=== PATIENT | male | born 1940 | race Caucasian/White ===

== ENCOUNTER 2018-01-02 18:50 | Inpatient (IN) | payer MEDICARE ==
[2018-01-02] MEDS ORDERED: SODIUM CHLORIDE 0.9% 1,000 ML IV STA (19:33)
[2018-01-02] MEDS ORDERED: hydrALAZINE HCL 20 MG/ML 1 ML VIAL IVP STA (19:34)
[2018-01-02 19:55] LABS: Basophils % (A) 0 %; Eosinophils # (A) 0.2 k/uL (0-0.7); Eosinophils % (A) 2 %; HCT 51.1 % (39.0-53.0); HGB 17.5 gm/dL (13.0-17.5); Lymphocytes # (A) 1.8 k/uL (1.0-4.8); Lymphocytes % (A) 18 %; MCH 30.6 pg (25.0-35.0); MCHC 34.2 g/dL (31.0-37.0); MCV 89.5 fL (80.0-100.0); Mean Platelet Volume 6.9; Monocytes # (A) 0.5 k/uL (0-1.0); Monocytes % (A) 6 %; Neutrophils # (A) 7.1 k/uL (1.3-7.7); Neutrophils % (A) 72 %; Platelet Count 207 k/uL (150-450); RBC 5.71 m/uL (4.30-5.90); WBC 9.7 k/uL (3.8-10.6)
[2018-01-02 20:06] LABS: INR 1.1 (<1.2); Partial Thromboplastin Time 25.3 sec (22.0-30.0); Prothrombin Time 10.5 sec (9.0-12.0)
[2018-01-02 20:14] LABS: Calcium 9.7 mg/dL (8.4-10.2); Creatine Kinase 242 U/L (55-170); Magnesium 1.4 mg/dL (1.6-2.3); Potassium 4.3 mmol/L (3.5-5.1); Total Bilirubin 0.5 mg/dL (0.2-1.3); Total Protein 6.6 g/dL (6.3-8.2)
--- NOTE | 2018-01-02 20:22 | XR ---
EXAMINATION TYPE: XR chest 2V DATE OF EXAM: 01/02/2018 COMPARISON: NONE HISTORY: Chest pain TECHNIQUE: Frontal and lateral views of the chest are obtained. FINDINGS: There is relative poor inspiration. There is linear density at the lung bases. There is no heart failure. Heart is normal. There are no hilar masses. IMPRESSION: Subsegmental atelectasis at the lung bases. Normal heart.
[2018-01-02 20:26] LABS: Troponin I <0.012 ng/mL (0.000-0.034)
[2018-01-02 20:28] LABS: Creatine Kinase MB 4.4 ng/mL (0.0-2.4)
[2018-01-02] MEDS ORDERED: MORPHINE SULFATE 2 MG/ML SYRINGE IVP PRN (20:48)
--- NOTE | 2018-01-02 20:48 | ED ---
General Adult HPI - General Chief complaint: Recheck/Abnormal Lab/Rx Stated complaint: High blood pressure Time Seen by Provider: 01/02/18 19:13 Source: patient Mode of arrival: ambulatory Limitations: no limitations - History of Present Illness Initial comments: 77 years old male has a history of firm hypertension today blood pressure was almost 200 systolic he had his lisinopril dose doubled but he feels it is not effective and arrival he had no headaches no blurred vision no confusion no chest pain or shortness of breath no abdominal pain no frequency urgency dysuria. But about are later in the ER he said he is feeling some chest pain no pleuritic chest pain no symptoms of TIA or CVA - Related Data Home Medications Medication Instructions Recorded Confirmed Aspirin EC [Ecotrin Low Dose] 81 mg PO DAILY 01/02/18 01/02/18 Ibuprofen [Motrin] 800 mg PO BID 01/02/18 01/02/18 Lisinopril [Zestril] 20 mg PO DAILY 01/02/18 01/02/18 Lisinopril [Zestril] 20 mg PO ONCE PRN 01/02/18 01/02/18 Multivit-Min/FA/Lycopen/Lutein 1 tab PO DAILY 01/02/18 01/02/18 [Centrum Silver Tablet] Simvastatin [Zocor] 10 mg PO DAILY 01/02/18 01/02/18 Testosterone Cypionate 200 mg IM Q14D 01/02/18 01/02/18 [Depo-Testosterone] glipiZIDE XL [Glucotrol Xl] 5 mg PO DAILY 01/02/18 01/02/18 metFORMIN HCL [Glucophage] 500 mg PO BID 01/02/18 01/02/18 Allergies Allergy/AdvReac Type Severity Reaction Status Date / Time No Known Allergies Allergy Verified 01/02/18 19:13 Review of Systems ROS Statement: Those systems with pertinent positive or pertinent negative responses have been documented in the HPI. ROS Other: All systems not noted in ROS Statement are negative. Past Medical History Past Medical History: Diabetes Mellitus, Hyperlipidemia, Hypertension History of Any Multi-Drug Resistant Organisms: None Reported Additional Past Surgical History / Comment(s): back surgery, cataract Past Psychological History: No Psychological Hx Reported Smoking Status: Never smoker Past Alcohol Use History: None Reported Past Drug Use History: None Reported General Exam - General Exam Comments Initial Comments: General: The patient is awake and alert, in no distress, and does not appear acutely ill. Skin: Skin is warm and dry and no rashes or lesions are noted. Eye: Pupils are equal, round and reactive to light, extra-ocular movements are intact; there is normal conjunctiva bilaterally. Ears, nose, mouth and throat: There are moist mucous membranes and no oral lesions. Neck: The neck is supple, there is no tenderness or JVD. Cardiovascular: There is a regular rate and rhythm. No murmur, rub or gallop is appreciated. Respiratory: To auscultation bilateral, no wheezing no rhonchi no distress respiratory luna noticed Gastrointestinal: Soft, non-distended, non-tender abdomen without masses or organomegaly noted. There is no rebound or guarding present. Bowel sounds are unremarkable. Back: There is no tenderness to palpation in the midline. There is no obvious deformity. Musculoskeletal: Normal ROM, no tenderness, There is no pedal edema. There is no calf tenderness or swelling. No cords were appreciated. Neurological: CN II-XII intact, Cranial nerves III through XII are intact. There are no obvious motor or sensory deficits. Coordination appears grossly intact. Speech is normal. Psychiatric: Cooperative, appropriate mood & affect, normal judgment. Limitations: no limitations Course Vital Signs 01/02/18 01/02/18 19:02 19:59 Temperature 98.3 F Pulse Rate 94 78 Respiratory 18 18 Rate Blood Pressure 194/99 179/93 O2 Sat by Pulse 96 96 Oximetry Reassessment was done at term 2024, troponin is unremarkable EKG didn't show any STEMI CBC, CMP, chest x-ray was unremarkable patient be admitted to Dr. Kelly and cardiology consult and consulted considering his chest pain episode Dr. Kelly agreed with that patient agreed with EKG Findings - EKG Comments: EKG Findings:: EKG is normal sinus ventricular rate is 79 DC interval is 144 QRS duration is 90 QT/QTc is 372/426 review of this EKG reveals slight T-wave inversion in lead [address] elevation or ST depression noticed in the other leads Medical Decision Making - Lab Data Result diagrams: 01/02/18 19:40 01/02/18 19:40 Lab Results 01/02/18 01/02/18 01/02/18 Range/Units 19:40 19:40 19:40 WBC 9.7 (3.8-10.6) k/uL RBC 5.71 (4.30-5.90) m/uL Hgb 17.5 (13.0-17.5) gm/dL Hct 51.1 (39.0-53.0) % MCV 89.5 (80.0-100.0) fL MCH 30.6 (25.0-35.0) pg MCHC 34.2 (31.0-37.0) g/dL RDW 14.0 (11.5-15.5) % Plt Count 207 (150-450) k/uL Neutrophils % 72 % Lymphocytes % 18 % Monocytes % 6 % Eosinophils % 2 % Basophils % 0 % Neutrophils # 7.1 (1.3-7.7) k/uL Lymphocytes # 1.8 (1.0-4.8) k/uL Monocytes # 0.5 (0-1.0) k/uL Eosinophils # 0.2 (0-0.7) k/uL Basophils # 0.0 (0-0.2) k/uL PT (9.0-12.0) sec INR (<1.2) APTT (22.0-30.0) sec Sodium 139 (137-145) mmol/L Potassium 4.3 (3.5-5.1) mmol/L Chloride 107 (98-107) mmol/L Carbon Dioxide 20 L (22-30) mmol/L Anion Gap 12 mmol/L BUN 22 H (9-20) mg/dL Creatinine 1.20 (0.66-1.25) mg/dL Est GFR (CKD-EPI)AfAm 67 (>60 ml/min/1.73 sqM) Est GFR (CKD-EPI)NonAf 58 (>60 ml/min/1.73 sqM) Glucose 141 H (74-99) mg/dL Calcium 9.7 (8.4-10.2) mg/dL Magnesium 1.4 L (1.6-2.3) mg/dL Total Bilirubin 0.5 (0.2-1.3) mg/dL AST 27 (17-59) U/L ALT 39 (21-72) U/L Alkaline Phosphatase 60 (38-126) U/L Total Creatine Kinase 242 H (55-170) U/L CK-MB (CK-2) 4.4 H* (0.0-2.4) ng/mL CK-MB (CK-2) Rel Index 1.8 Troponin I <0.012 (0.000-0.034) ng/mL Total Protein 6.6 (6.3-8.2) g/dL Albumin 4.0 (3.5-5.0) g/dL 01/02/18 Range/Units 19:40 WBC (3.8-10.6) k/uL RBC (4.30-5.90) m/uL Hgb (13.0-17.5) gm/dL Hct (39.0-53.0) % MCV (80.0-100.0) fL MCH (25.0-35.0) pg MCHC (31.0-37.0) g/dL RDW (11.5-15.5) % Plt Count (150-450) k/uL Neutrophils % % Lymphocytes % % Monocytes % % Eosinophils % % Basophils % % Neutrophils # (1.3-7.7) k/uL Lymphocytes # (1.0-4.8) k/uL Monocytes # (0-1.0) k/uL Eosinophils # (0-0.7) k/uL Basophils # (0-0.2) k/uL PT 10.5 (9.0-12.0) sec INR 1.1 (<1.2) APTT 25.3 (22.0-30.0) sec Sodium (137-145) mmol/L Potassium (3.5-5.1) mmol/L Chloride (98-107) mmol/L Carbon Dioxide (22-30) mmol/L Anion Gap mmol/L BUN (9-20) mg/dL Creatinine (0.66-1.25) mg/dL Est GFR (CKD-EPI)AfAm (>60 ml/min/1.73 sqM) Est GFR (CKD-EPI)NonAf (>60 ml/min/1.73 sqM) Glucose (74-99) mg/dL Calcium (8.4-10.2) mg/dL Magnesium (1.6-2.3) mg/dL Total Bilirubin (0.2-1.3) mg/dL AST (17-59) U/L ALT (21-72) U/L Alkaline Phosphatase (38-126) U/L Total Creatine Kinase (55-170) U/L CK-MB (CK-2) (0.0-2.4) ng/mL CK-MB (CK-2) Rel Index Troponin I (0.000-0.034) ng/mL Total Protein (6.3-8.2) g/dL Albumin (3.5-5.0) g/dL Disposition Clinical Impression: Hypertension, Chest pain Disposition: ADMITTED IP TO THIS HOSP Condition: Good Referrals: Rama Putnam MD [Primary Care Provider] - 1-2 days
[2018-01-02] MEDS ORDERED: NITROGLYCERIN OINT 1 INCH/GM PACKET TOPICAL STA (20:51)
[2018-01-02] MEDS ORDERED: amLODIPine 5 MG TAB PO STA (20:52)
[2018-01-02] MEDS ORDERED: LISINOPRIL 20 MG TAB PO PRN (20:53)
[2018-01-02 21:13] LABS: Glucose,Whole Blood 117 mg/dL (75-99)
[2018-01-02] MEDS: metFORMIN 500 MG TAB PO SCH (22:17)
[2018-01-03] MEDS: NITROGLYCERIN OINT 1 INCH/GM PACKET TOPICAL SCH ×2 (00:07→06:26)
[2018-01-03 03:13] LABS: Cholesterol 182 mg/dL (<200); HDL Cholesterol 36 mg/dL (40-60); LDL Cholesterol,Calculated 108 mg/dL (0-99); Triglycerides 190 mg/dL (<150)
[2018-01-03 04:06] LABS: Creatine Kinase MB 3.4 ng/mL (0.0-2.4)
[2018-01-03 04:08] LABS: Troponin I 0.09 ng/mL (0.000-0.034)
[2018-01-03 05:54] LABS: Glucose,Whole Blood 113 mg/dL (75-99)
[2018-01-03] MEDS ORDERED: Magnesium Replacement Protocol 1 EACH MISC MISCELLANE PRN (06:57)
[2018-01-03] MEDS: MAGNESIUM SULFATE-D5W PMX 1 GM in DEXTROSE/WATER 1 100ML.BAG IVPB SCH ×3 (07:52→10:54)
[2018-01-03 08:01] LABS: Creatine Kinase MB 3.2 ng/mL (0.0-2.4); Troponin I 0.121 ng/mL (0.000-0.034)
[2018-01-03] MEDS ORDERED: ASPIRIN 325 MG TAB PO SCH (09:00)
[2018-01-03] MEDS ORDERED: NON-FORMULARY DRUG (Aspirin Ec 81 MG) PO SCH (09:00)
[2018-01-03 09:13] VITALS: BMI 28.8
[2018-01-03] MEDS: metFORMIN 500 MG TAB PO SCH ×2 (10:12→20:27)
[2018-01-03] MEDS: ATORVASTATIN 10 MG TAB PO SCH (10:12)
--- NOTE | 2018-01-03 10:57 | P.CRDCN ---
History of Present Illness History of present illness: This is Dr. Clemons dictating a consult on this patient The patient was interviewed and examined by me IMPRESSION / ASSESSMENT: Admitted with significantly elevated blood pressures Recently treated with Motrin in high doses for back pain by physical therapy History of diabetes History of hypertension 2 dyslipidemia On aspirin and Zestril and Zocor at home PLAN: Avoid NSAIDs Restart lisinopril 2-D echo and Doppler study Ambulate in the hallways Follow Dr. Richard as an outpatient I would monitor him for an additional 24 hours HPI Patient presented with elevated blood pressure almost 200 mmHg systolic. Recently lisinopril dose was doubled but that did not help his blood pressure come down. Denied any chest discomfort no headaches no blurring of vision no confusion no shortness of breath ROS: Patient noted his blood pressure is elevated and went to see his primary care physician Dr. Putnam. Blood pressure was elevated at the physical therapist's office. Recently given Motrin in high doses No fever chills or rigors, no cough, phlegm or expectoration, no nausea, vomiting or diarrhea, no hematuria, dysuria, no musculoskeletal complaints, no strokes or seizures, no skin lesions. EXAMINATION Afebrile 97.3F, blood pressure 130/78 mmHg, respirations normal, pulse rate in the 80s Breath sounds are clear no rhonchi no crackles Heart sounds S1 and S2 are normal no murmurs or gallops. Extremity is warm no edema REVIEW OF LABS, ECG Twelve-lead ECG shows sinus rhythm normal MN incomplete right bundle branch block pattern, [address] depression lateral precordial leads and left axis deviation Hemoglobin 17.5, normal electrolytes, BUN 22 creatinine 1.2 Abnormal troponins of 0.012, 0.09 and 0.12 However CPKs were elevated at 242 with an MB of 4.4 with a first normal troponin. The elevation in CPKs occurred before elevation in troponins LDL 108, HDL 36, total cholesterol 182, triglycerides 190 Past Medical History Past Medical History: Diabetes Mellitus, GERD/Reflux, Hyperlipidemia, Hypertension, Osteoarthritis (OA) Additional Past Medical History / Comment(s): "past ulcer long time ago", kidney stone, gallstone History of Any Multi-Drug Resistant Organisms: None Reported Past Surgical History: Back Surgery Additional Past Surgical History / Comment(s): back surgery, cataract Past Anesthesia/Blood Transfusion Reactions: No Reported Reaction Smoking Status: Never smoker - Past Family History Mother Family Medical History: CVA/TIA, Diabetes Mellitus, Myocardial Infarction ([place]) Father Family Medical History: CVA/TIA Medications and Allergies Home Medications Medication Instructions Recorded Confirmed Type Aspirin EC [Ecotrin Low Dose] 81 mg PO DAILY 01/02/18 01/02/18 History Ibuprofen [Motrin] 800 mg PO BID 01/02/18 01/02/18 History Lisinopril [Zestril] 20 mg PO DAILY 01/02/18 01/02/18 History Lisinopril [Zestril] 20 mg PO ONCE PRN 01/02/18 01/02/18 History Multivit-Min/FA/Lycopen/Lutein 1 tab PO DAILY 01/02/18 01/02/18 History [Centrum Silver Tablet] Simvastatin [Zocor] 10 mg PO DAILY 01/02/18 01/02/18 History Testosterone Cypionate 200 mg IM Q14D 01/02/18 01/02/18 History [Depo-Testosterone] glipiZIDE XL [Glucotrol Xl] 5 mg PO DAILY 01/02/18 01/02/18 History metFORMIN HCL [Glucophage] 500 mg PO BID 01/02/18 01/02/18 History Allergies Allergy/AdvReac Type Severity Reaction Status Date / Time No Known Allergies Allergy Verified 01/02/18 19:13 Physical Exam Vitals: Vital Signs Temp Pulse Pulse Resp BP BP BP 01/03/18 07:49 97.3 F L 87 16 130/78 01/03/18 04:00 63 16 106/58 01/03/18 00:00 92 16 119/56 01/02/18 22:05 96.1 F L 90 18 144/84 01/02/18 21:57 98.0 F 01/02/18 21:38 94 18 149/77 01/02/18 20:21 94 18 165/77 01/02/18 19:59 78 18 179/93 01/02/18 19:02 98.3 F 94 18 194/99 Pulse Ox 01/03/18 07:49 94 L 01/03/18 04:00 94 L 01/03/18 00:00 96 01/02/18 22:05 93 L 01/02/18 21:57 01/02/18 21:38 94 L 01/02/18 20:21 97 01/02/18 19:59 96 01/02/18 19:02 96 Intake and Output 01/02/18 01/03/18 01/03/18 22:59 06:59 14:59 Other: Voiding Method Toilet # Voids 1 0 Weight 85.2 kg 86.2 kg 86.2 kg Results 01/02/18 19:40 01/02/18 19:40 Cardiac Enzymes 01/02/18 01/02/18 01/03/18 Range/Units 19:40 19:40 02:35 AST 27 (17-59) U/L CK-MB (CK-2) 4.4 H* 3.4 H* (0.0-2.4) ng/mL Troponin I <0.012 0.090 H* (0.000-0.034) ng/mL 01/03/18 Range/Units 06:55 AST (17-59) U/L CK-MB (CK-2) 3.2 H* (0.0-2.4) ng/mL Troponin I 0.121 H* (0.000-0.034) ng/mL Coagulation 01/02/18 Range/Units 19:40 PT 10.5 (9.0-12.0) sec APTT 25.3 (22.0-30.0) sec Lipids 01/03/18 Range/Units 02:35 Triglycerides 190 H (<150) mg/dL Cholesterol 182 (<200) mg/dL HDL Cholesterol 36 L (40-60) mg/dL CBC 01/02/18 Range/Units 19:40 WBC 9.7 (3.8-10.6) k/uL RBC 5.71 (4.30-5.90) m/uL Hgb 17.5 (13.0-17.5) gm/dL Hct 51.1 (39.0-53.0) % Plt Count 207 (150-450) k/uL Comprehensive Metabolic Panel 01/02/18 Range/Units 19:40 Sodium 139 (137-145) mmol/L Potassium 4.3 (3.5-5.1) mmol/L Chloride 107 (98-107) mmol/L Carbon Dioxide 20 L (22-30) mmol/L BUN 22 H (9-20) mg/dL Creatinine 1.20 (0.66-1.25) mg/dL Glucose 141 H (74-99) mg/dL Calcium 9.7 (8.4-10.2) mg/dL AST 27 (17-59) U/L ALT 39 (21-72) U/L Alkaline Phosphatase 60 (38-126) U/L Total Protein 6.6 (6.3-8.2) g/dL Albumin 4.0 (3.5-5.0) g/dL Current Medications Generic Name Dose Route Start Last Admin Trade Name Freq PRN Reason Stop Dose Admin Aspirin 81 mg 01/04/18 09:00 Aspirin PO DAILY [facility] Atorvastatin Calcium 10 mg 01/03/18 09:00 01/03/18 10:12 Lipitor PO 10 mg DAILY [facility] Administration Glipizide 2.5 mg 01/03/18 09:00 Glucotrol PO BID [facility] Lisinopril 20 mg 01/03/18 09:00 Zestril PO DAILY [facility] Lisinopril 20 mg 01/02/18 20:53 Zestril PO ONCE PRN HIGH BP Metformin HCl 500 mg 01/02/18 21:00 01/03/18 10:12 Glucophage PO 500 mg BID [facility]ANK[facility] Administration Miscellaneous Information 1 each 01/03/18 06:57 Magnesium Per Protocol MISCELLANE DAILY PRN Per Protocol Protocol Morphine Sulfate 2 mg 01/02/18 20:48 Morphine Sulfate (Inj) IVP Q5M PRN Chest Pain Multivitamins/Minerals 1 each 01/03/18 12:00 Ivite PO DAILY@1200 [facility] Testosterone Cypionate 200 mg 01/02/18 21:00 Depo-Testosterone IM Q14D [facility] Intake and Output 01/02/18 01/03/18 01/03/18 22:59 06:59 14:59 Other: Voiding Method Toilet # Voids 1 0 Weight 85.2 kg 86.2 kg 86.2 kg Patient Weight 01/04/18 06:59 Weight 86.2 kg 01/02/18 19:40 01/02/18 19:40
[2018-01-03 12:09] LABS: Glucose,Whole Blood 283 mg/dL (75-99)
--- NOTE | 2018-01-03 12:13 | P.HPIM ---
History of Present Illness H&P Date: 01/03/18 Chief Complaint: Hypertensive urgency and chest pain Raphael Rhodes he is a 77-year-old male patient of Dr. Putnam who presented to [facility] emergency room due to significantly elevated blood pressure, patient was at physical therapy, and his blood pressure readings were in the range of 200/100, he came to emergency room for evaluation, he was recently started on ibuprofen and this could have caused his blood pressure to be elevated, ibuprofen was discontinued and patient was restarted on lisinopril , blood pressure improved. While in the emergency room patient had an episode of chest pain radiating down the left arm, he was admitted to telemetry floor for further evaluation cardiology consult was requested. EKG revealed ST depression in lateral leads there was minimal elevation in troponin level. Patient denies ever having any heart problems, he has known history of hypertension, hyperlipidemia, and [id number] diabetes mellitus, he states that he had a stress test about 5-7 years ago and that was within normal limits. Past Medical History Past Medical History: Diabetes Mellitus, GERD/Reflux, Hyperlipidemia, Hypertension, Osteoarthritis (OA) Additional Past Medical History / Comment(s): "past ulcer long time ago", kidney stone, gallstone History of Any Multi-Drug Resistant Organisms: None Reported Past Surgical History: Back Surgery Additional Past Surgical History / Comment(s): back surgery, cataract Past Anesthesia/Blood Transfusion Reactions: No Reported Reaction Smoking Status: Never smoker - Past Family History Mother Family Medical History: CVA/TIA, Diabetes Mellitus, Myocardial Infarction ([place]) Father Family Medical History: CVA/TIA Medications and Allergies Home Medications Medication Instructions Recorded Confirmed Type Aspirin EC [Ecotrin Low Dose] 81 mg PO DAILY 01/02/18 01/02/18 History Ibuprofen [Motrin] 800 mg PO BID 01/02/18 01/02/18 History Lisinopril [Zestril] 20 mg PO DAILY 01/02/18 01/02/18 History Lisinopril [Zestril] 20 mg PO ONCE PRN 01/02/18 01/02/18 History Multivit-Min/FA/Lycopen/Lutein 1 tab PO DAILY 01/02/18 01/02/18 History [Centrum Silver Tablet] Simvastatin [Zocor] 10 mg PO DAILY 01/02/18 01/02/18 History Testosterone Cypionate 200 mg IM Q14D 01/02/18 01/02/18 History [Depo-Testosterone] glipiZIDE XL [Glucotrol Xl] 5 mg PO DAILY 01/02/18 01/02/18 History metFORMIN HCL [Glucophage] 500 mg PO BID 01/02/18 01/02/18 History Allergies Allergy/AdvReac Type Severity Reaction Status Date / Time No Known Allergies Allergy Verified 01/02/18 19:13 Physical Exam Vitals: Vital Signs Temp Pulse Pulse Resp BP BP BP 01/03/18 11:41 99 F 89 16 121/62 01/03/18 07:49 97.3 F L 87 16 130/78 01/03/18 04:00 63 16 106/58 01/03/18 00:00 92 16 119/56 01/02/18 22:05 96.1 F L 90 18 144/84 01/02/18 21:57 98.0 F 01/02/18 21:38 94 18 149/77 01/02/18 20:21 94 18 165/77 01/02/18 19:59 78 18 179/93 01/02/18 19:02 98.3 F 94 18 194/99 Pulse Ox 01/03/18 11:41 91 L 01/03/18 07:49 94 L 01/03/18 04:00 94 L 01/03/18 00:00 96 01/02/18 22:05 93 L 01/02/18 21:57 01/02/18 21:38 94 L 01/02/18 20:21 97 01/02/18 19:59 96 01/02/18 19:02 96 Intake and Output 01/02/18 01/03/18 01/03/18 22:59 06:59 14:59 Other: Voiding Method Toilet # Voids 1 0 Weight 85.2 kg 86.2 kg 86.2 kg In general patient is alert and oriented 3 in no apparent distress HEENT head normocephalic and atraumatic Neck is supple no JVD no goiter no lymphadenopathy Chest exam reveals clear respiratory sounds no crackles no wheezing Cardiac exam reveals regular heart sounds S1 and S2 no gallops no murmurs Abdomen is soft nontender no organomegaly with normal bowel sounds Extremity exam reveals no edema no cyanosis or clubbing Results CBC & Chem 7: 01/02/18 19:40 01/02/18 19:40 Labs: Abnormal Lab Results - Last 24 Hours (Table) 01/02/18 01/02/18 01/02/18 Range/Units 19:40 19:40 20:56 Carbon Dioxide 20 L (22-30) mmol/L BUN 22 H (9-20) mg/dL Glucose 141 H (74-99) mg/dL POC Glucose (mg/dL) 117 H (75-99) mg/dL Magnesium 1.4 L (1.6-2.3) mg/dL Total Creatine Kinase 242 H (55-170) U/L CK-MB (CK-2) 4.4 H* (0.0-2.4) ng/mL Troponin I (0.000-0.034) ng/mL Triglycerides (<150) mg/dL LDL Cholesterol, Calc (0-99) mg/dL HDL Cholesterol (40-60) mg/dL 01/03/18 01/03/18 01/03/18 Range/Units 02:35 02:35 05:52 Carbon Dioxide (22-30) mmol/L BUN (9-20) mg/dL Glucose (74-99) mg/dL POC Glucose (mg/dL) 113 H (75-99) mg/dL Magnesium (1.6-2.3) mg/dL Total Creatine Kinase 203 H (55-170) U/L CK-MB (CK-2) 3.4 H* (0.0-2.4) ng/mL Troponin I 0.090 H* (0.000-0.034) ng/mL Triglycerides 190 H (<150) mg/dL LDL Cholesterol, Calc 108 H (0-99) mg/dL HDL Cholesterol 36 L (40-60) mg/dL 01/03/18 Range/Units 06:55 Carbon Dioxide (22-30) mmol/L BUN (9-20) mg/dL Glucose (74-99) mg/dL POC Glucose (mg/dL) (75-99) mg/dL Magnesium (1.6-2.3) mg/dL Total Creatine Kinase 175 H (55-170) U/L CK-MB (CK-2) 3.2 H* (0.0-2.4) ng/mL Troponin I 0.121 H* (0.000-0.034) ng/mL Triglycerides (<150) mg/dL LDL Cholesterol, Calc (0-99) mg/dL HDL Cholesterol (40-60) mg/dL Thrombosis Risk Factor Assmnt - Choose All That Apply Any of the Below Risk Factors Present?: Yes Each Factor Represents 1 point: Obesity (BMI >25) Other Risk Factors: Yes Each Risk Factor Represents 3 Points: Age 75 years or older Thrombosis Risk Factor Assessment Total Risk Factor Score: 4 Thrombosis Risk Factor Assessment Level: Moderate Risk Assessment and Plan Plan: #1 hypertensive emergency, with blood pressure in the range of 200/100, patient restarted on lisinopril now blood pressure improved #2 episode of chest pain, there was minimal elevation in troponin level, cardiology are following #3 underlying history of hypertension now better controlled we will continue to monitor #4 underlying history of [id number] diabetes mellitus continue with glipizide and add sliding scale #5 underlying history of hyperlipidemia #6 underlying history of hypogonadism maintained on testosterone injections every 2 weeks Medication and labs were reviewed Aspirin was added to regimen patient is maintained on lisinopril, ibuprofen is discontinued Will monitor progress over the next 24
[2018-01-03] MEDS: LISINOPRIL 20 MG TAB PO SCH (12:28)
[2018-01-03] MEDS: VIT A,C & E-LUTEIN-MINERALS 1 EACH TAB PO SCH (12:29)
[2018-01-03] MEDS: INSULIN ASPART 100 UNIT/ML 1 ML 10 ML VIAL SQ SCH ×3 (12:29→20:36)
[2018-01-03 17:04] LABS: Glucose,Whole Blood 93 mg/dL (75-99)
--- NOTE | 2018-01-03 17:31 | ECHOF ---
Referral Reason:htn, abnormal trops MEASUREMENTS -------- HEIGHT: 172.7 cm WEIGHT: 86.2 kg BP: IVSd: 1.3 cm (0.6 - 1.1) LVIDd: 3.4 cm (3.9 - 5.3) LVPWd: 1.0 cm (0.6 - 1.1) IVSs: 1.6 cm LVIDs: 2.6 cm LVPWs: 1.5 cm LA Diam: 3.3 cm (2.7 - 3.8) Ao Diam: 3.7 cm (2.0 - 3.7) AV Cusp: 1.8 cm (1.5 - 2.6) LA Diam: 3.4 cm (2.7 - 3.8) MV EXCURSION: 15.618 mm (> 18.000) MV EF SLOPE: 72 mm/s (70 - 150) EPSS: 0.5 cm MV E Ciro: 0.63 m/s MV DecT: 207 ms MV A Ciro: 1.02 m/s MV E/A Ratio: 0.62 RAP: 5.00 mmHg RVSP: 19.87 mmHg FINDINGS -------- Sinus rhythm. This was a technically good study. The left ventricular size is normal. There is mild concentric left ventricular hypertrophy. Overa ll left ventricular systolic function is normal with, an EF between 55 - 60 %. The right ventricle is normal in size. The left atrial size is normal. The right atrial size is normal. The aortic valve is trileaflet, and appears structurally normal. No aortic stenosis or regurgitation. Mild mitral regurgitation is present. Mild tricuspid regurgitation present. There is no evidence of pulmonary hypertension. The right v entricular systolic pressure, as measured by Doppler, is 19.87mmHg. There is no pulmonic regurgitation present. The aortic root size is normal. There is no pericardial effusion. CONCLUSIONS -------- 1. The left ventricular size is normal. 2. There is mild concentric left ventricular hypertrophy. 3. Overall left ventricular systolic function is normal with, an EF between 55 - 60 %. 4. The right ventricle is normal in size. 5. The left atrial size is normal. 6. The right atrial size is normal. 7. The aortic valve is trileaflet, and appears structurally normal. No aortic stenosis or regurgitati on. 8. Mild mitral regurgitation is present. 9. Mild tricuspid regurgitation present. 10. There is no evidence of pulmonary hypertension. 11. The right ventricular systolic pressure, as measured by Doppler, is 19.87mmHg. 12. There is no pulmonic regurgitation present. 13. The aortic root size is normal. 14. There is no pericardial effusion. MAPPING TECHNICIAN: Marleen Grimm RDCS
[2018-01-03 20:36] LABS: Glucose,Whole Blood 103 mg/dL (75-99)
[2018-01-03 22:57] LABS: Hemoglobin A1C 6.7 % (4.0-6.0)
[2018-01-04 06:06] LABS: Glucose,Whole Blood 105 mg/dL (75-99)
[2018-01-04] MEDS: INSULIN ASPART 100 UNIT/ML 1 ML 10 ML VIAL SQ SCH ×2 (06:37→11:46)
[2018-01-04 08:07] VITALS: RESP 20
[2018-01-04] MEDS: ATORVASTATIN 10 MG TAB PO SCH (08:13)
[2018-01-04] MEDS: metFORMIN 500 MG TAB PO SCH (08:13)
[2018-01-04] MEDS ORDERED: ASPIRIN 81 MG PO SCH (09:00)
--- NOTE | 2018-01-04 10:08 | P.PN ---
Subjective Patient is doing well from a cardiac standpoint. He denies any chest discomfort dizziness lightheadedness or palpitations. His ablating in the hallways. He came in because of an elevated blood pressure after consuming high doses of Motrin. He never experienced any chest discomfort or any breathing trouble. He has known diabetes for almost 20 years hypertension and dyslipidemia. He complains of some back pain and buttock pain but he denies any proximal myopathy. He is on Zocor His CPKs were elevated and showed downward trend His first troponin was normal and his CPK was elevated but thereafter showed an upper trend it seems to have flattened. I'm repeating his troponin once again today along with a CPK On examination his blood pressure is 98.8F pulse rate is 87 respirations normal blood pressure 124/70 mmHg His blood pressures are now very well controlled on 20 mg by mouth of lisinopril which was his original dose Heart sounds are normal normal S1 normal S2 Breath sounds are clear Abdomen soft nontender Ixodes warm no edema No JVD Impression Uncontrolled hypertension after taking high doses of Motrin. Blood pressure remained elevated at [address] Rosa increased to 40 mg by mouth daily without any effect. He was sent to the hospital for hypertension. Here his blood pressure is controlled on 20 mg by mouth of lisinopril, once again Complains of back pain but has elevated CPKs showing a downward trend and is on simvastatin 10 mg by mouth daily LDL is 108. He is diabetic Completely denies any shortness of breath or chest pain or any symptoms suggestive of angina but is troponins show a delayed rising trend. His first CPK was elevated his troponin was normal this does not fit in with an acute myocardial infarction/ACS Likely myocardial injury on account of severe hypertension secondary to the use of high dose Motrin along with vishal inhibitors Blood pressure is now resolved without making any significant changes other than no further use of NSAIDs Acute myocardial injury, not acute myocardial infarction Suggest Patient may go home from a cardiac standpoint. I will not change any of his medications. He is been instructed to drink fluids ad alf. and avoid regular use of insulin is on high-dose NSAIDs. Home blood pressure monitoring If he has any chest pain or shortness of breath, sooner I'll see him again next 1-2 weeks At this time although his LDL should be below 70 mg/dL I'm not increasing simvastatin exam wondering if the elevated CPK is secondary to simvastatin or simply lack of hydration which she admits to In the future I would like to switch him to either atorvastatin or Crestor and get his LDL down below 70 mg/dL or preferably closer to 50 mrem per deciliter but I would watch his CPK levels Objective - Vital Signs Vital signs: Vital Signs Temp 98.8 F 01/04/18 08:00 Pulse 87 01/04/18 08:00 Resp 20 01/04/18 08:00 BP 124/70 01/04/18 08:00 Pulse Ox 96 01/04/18 08:00 Intake & Output 01/03/18 01/04/18 01/04/18 18:59 06:59 18:59 Intake Total 660 300 240 Balance 660 300 240 Weight 86.2 kg 86 kg Intake: IV 300 300 Magnesium Sulfate-D5w Pmx 300 300 1 gm In Dextrose/Water 1 100ml.bag @ 100 mls/hr IVPB Q1H FRANKY Rx#: [id number] Oral 360 240 Other: Voiding Method Toilet Toilet Toilet # Voids 1 1 - Labs CBC & Chem 7: 01/02/18 19:40 01/02/18 19:40 Labs: Abnormal Lab Results - Last 24 Hours (Table) 01/03/18 01/03/18 01/03/18 Range/Units 02:35 11:44 20:35 POC Glucose (mg/dL) 283 H 103 H (75-99) mg/dL Hemoglobin A1c 6.7 H (4.0-6.0) % 01/04/18 Range/Units 06:05 POC Glucose (mg/dL) 105 H (75-99) mg/dL Hemoglobin A1c (4.0-6.0) %
[2018-01-04 10:20] LABS: Creatine Kinase MB 1.9 ng/mL (0.0-2.4)
[2018-01-04 10:21] LABS: Troponin I 0.047 ng/mL (0.000-0.034)
[2018-01-04 11:28] VITALS: BP 133/75; PULSE 80; TEMP 98.4
[2018-01-04 11:45] LABS: Glucose,Whole Blood 103 mg/dL (75-99)
[2018-01-04] MEDS: VIT A,C & E-LUTEIN-MINERALS 1 EACH TAB PO SCH (11:45)
[2018-01-04] MEDS: LISINOPRIL 20 MG TAB PO SCH (11:45)
--- NOTE | 2018-01-04 15:00 | P.DS ---
Providers Date of admission: 01/02/18 20:48 Expected date of discharge: 01/04/18 Attending physician: Kayleen Kelly Consults: 01/02/18 20:48 Consult Physician Urgent Consulting Provider: Leo Bauer Consult Reason/Comments: Chest pain, hypertension Do you want consulting provider notified?: Yes Primary care physician: Rama Putnam [facility] Course: Diagnoses on discharge: #1 hypertensive emergency, with blood pressure in the range of 200/100, patient restarted on lisinopril now blood pressure improved, elevated blood pressure likely related to Ibuprofen 800 mg bid patient told to avoid NSAIDS and to decrease salt intake. #2 episode of chest pain, there was minimal elevation in troponin level, cardiology are following, no intervention or testing recommended by cardiology at this time. #3 underlying history of hypertension now better controlled we will continue to monitor #4 underlying history of rvu-[id number] diabetes mellitus continue with glipizide and add sliding scale #5 underlying history of hyperlipidemia #6 underlying history of hypogonadism maintained on testosterone injections every 2 weeks Hospital course: Raphael Rhodes he is a 77-year-old male patient of Dr. Putnam who presented to [facility] emergency room due to significantly elevated blood pressure, patient was at physical therapy, and his blood pressure readings were in the range of 200/100, he came to emergency room for evaluation, he was recently started on ibuprofen and this could have caused his blood pressure to be elevated, ibuprofen was discontinued and patient was restarted on lisinopril , blood pressure improved. While in the emergency room patient had an episode of chest pain radiating down the left arm, he was admitted to telemetry floor for further evaluation cardiology consult was requested. EKG revealed ST depression in lateral leads there was minimal elevation in troponin level. Patient denies ever having any heart problems, he has known history of hypertension, hyperlipidemia, and hbj-rgsgcuv-sdjcpbnyf diabetes mellitus, he states that he had a stress test about 5-7 years ago and that was within normal limits. Patient was monitored on telemetry floor, blood pressure came down to normal, no change to his blood pressure medication was done during this admission, he was seen by cardiology due to an episode of chest pain in the emergency room, with slight elevation in troponin level, no intervention or testing was recommended by cardiology at this time he was cleared for discharge. Patient was advised to avoid taking NSAIDS and to decrease salt intake otherwise continue same medications as prior to admission and follow-up was primary care physician Dr. putnam within 1 week. Patient Condition at Discharge: Good Plan - Discharge Summary Discharge Rx Participant: Yes New Discharge Prescriptions: Continue Aspirin EC [Ecotrin Low Dose] 81 mg PO DAILY glipiZIDE XL [Glucotrol XL] 5 mg PO DAILY Lisinopril [Zestril] 20 mg PO DAILY metFORMIN HCL [Glucophage] 500 mg PO BID Multivit-Min/FA/Lycopen/Lutein [Centrum Silver Tablet] 1 tab PO DAILY Simvastatin [Zocor] 10 mg PO DAILY Testosterone Cypionate [Depo-Testosterone] 200 mg IM Q14D Discontinued Ibuprofen [Motrin] 800 mg PO BID Lisinopril [Zestril] 20 mg PO ONCE PRN PRN Reason: HIGH BP Discharge Medication List Aspirin EC [Ecotrin Low Dose] 81 mg PO DAILY 01/02/18 [History] Lisinopril [Zestril] 20 mg PO DAILY 01/02/18 [History] Multivit-Min/FA/Lycopen/Lutein [Centrum Silver Tablet] 1 tab PO DAILY 01/02/18 [ History] Simvastatin [Zocor] 10 mg PO DAILY 01/02/18 [History] Testosterone Cypionate [Depo-Testosterone] 200 mg IM Q14D 01/02/18 [History] glipiZIDE XL [Glucotrol XL] 5 mg PO DAILY 01/02/18 [History] metFORMIN HCL [Glucophage] 500 mg PO BID 01/02/18 [History] Follow up Appointment(s)/Referral(s): Shane Clemons MD [STAFF PHYSICIAN] - 2 Weeks Rama Putnam MD [Primary Care Provider] - 1-2 days Patient Instructions/Handouts: Hypertension (DC)
[2018-01-13] MEDS ORDERED: TESTOSTERONE CYPIONATE 200 MG/ML 1ML VIAL IM SCH (09:00)
== END 2018-01-04 16:31 | disposition home or self-care (01) | DRG 305 ==
LOC: EC 18:50 → 6SEL 20:48
PROVIDERS: ADMIT Internal Medicine; ATTEND Internal Medicine
DX: I16.1 Hypertensive emergency (principal); I10 Essential (primary) hypertension; E11.9 Type 2 diabetes mellitus without complications; I45.10 Unspecified right bundle-branch block; R07.9 Chest pain, unspecified; T39.315A Adverse effect of propionic acid derivatives, initial encounter; E29.1 Testicular hypofunction; E78.5 Hyperlipidemia, unspecified; M54.9 Dorsalgia, unspecified; K80.20 Calculus of gallbladder without cholecystitis without obstruction; K21.9 Gastro-esophageal reflux disease without esophagitis; M19.91 Primary osteoarthritis, unspecified site; Z79.890 Hormone replacement therapy; Z79.84 Long term (current) use of oral hypoglycemic drugs; Z79.1 Long term (current) use of non-steroidal anti-inflammatories (NSAID); Z79.899 Other long term (current) drug therapy; Z98.49 Cataract extraction status, unspecified eye; Z87.11 Personal history of peptic ulcer disease; Z87.442 Personal history of urinary calculi; Z82.49 Family history of ischemic heart disease and other diseases of the circulatory system; Z83.3 Family history of diabetes mellitus; Z82.3 Family history of stroke
CPT/HCPCS: 36415; 71046; 80053; 80061; 82550; 82553; 83036; 83735; 84484; 85025; 85610; 85730; 93005; 93306; 96374; 99284

== ENCOUNTER 2018-01-13 17:14 | Emergency (ER) | payer MEDICARE ==
[2018-01-13 17:30] VITALS: RESP 18
[2018-01-13] MEDS ORDERED: LABETALOL 5 MG/ML VIAL MDV IVP STA (17:50)
[2018-01-13 18:01] LABS: Basophils % (A) 0 %; Eosinophils # (A) 0.3 k/uL (0-0.7); Eosinophils % (A) 3 %; HGB 17.4 gm/dL (13.0-17.5); Lymphocytes # (A) 2.5 k/uL (1.0-4.8); Lymphocytes % (A) 27 %; MCH 30.7 pg (25.0-35.0); MCHC 34.2 g/dL (31.0-37.0); MCV 89.9 fL (80.0-100.0); Mean Platelet Volume 6.7; Monocytes # (A) 0.5 k/uL (0-1.0); Monocytes % (A) 5 %; Neutrophils # (A) 5.8 k/uL (1.3-7.7); Neutrophils % (A) 63 %; Platelet Count 268 k/uL (150-450); RBC 5.67 m/uL (4.30-5.90); RDW 13.7 % (11.5-15.5); WBC 9.3 k/uL (3.8-10.6)
--- NOTE | 2018-01-13 18:09 | ED ---
General Adult HPI - General Chief complaint: Recheck/Abnormal Lab/Rx Stated complaint: High blood pressure Time Seen by Provider: 01/13/18 17:37 Source: patient, RN notes reviewed, old records reviewed Mode of arrival: ambulatory Limitations: no limitations - History of Present Illness Initial comments: This is a 69-year-old male the ER for evaluation today. Today comes in for evaluation of elevated blood pressure. Patient does have history of elevated blood pressure is labile blood pressure medication increased with no real improvement in his overall blood pressure. Patient denies any complaints is asymptomatic. Patient is found to have elevated blood pressure during rehabilitation appointment today. Otherwise patient has no symptoms - Related Data Home Medications Medication Instructions Recorded Confirmed Aspirin EC [Ecotrin Low Dose] 81 mg PO DAILY 01/02/18 01/13/18 Lisinopril [Zestril] 60 mg PO DAILY 01/02/18 01/13/18 Multivit-Min/FA/Lycopen/Lutein 1 tab PO DAILY 01/02/18 01/13/18 [Centrum Silver Tablet] Simvastatin [Zocor] 10 mg PO DAILY 01/02/18 01/13/18 Testosterone Cypionate 200 mg IM Q14D 01/02/18 01/13/18 [Depo-Testosterone] glipiZIDE XL [Glucotrol XL] 5 mg PO DAILY 01/02/18 01/13/18 metFORMIN HCL [Glucophage] 500 mg PO BID 01/02/18 01/13/18 Allergies Allergy/AdvReac Type Severity Reaction Status Date / Time No Known Allergies Allergy Verified 01/13/18 17:54 Review of Systems ROS Statement: Those systems with pertinent positive or pertinent negative responses have been documented in the HPI. ROS Other: All systems not noted in ROS Statement are negative. Past Medical History Past Medical History: Diabetes Mellitus, GERD/Reflux, Hyperlipidemia, Hypertension, Osteoarthritis (OA) Additional Past Medical History / Comment(s): "past ulcer long time ago", kidney stone, gallstone History of Any Multi-Drug Resistant Organisms: None Reported Past Surgical History: Back Surgery Additional Past Surgical History / Comment(s): back surgery, cataract Past Anesthesia/Blood Transfusion Reactions: No Reported Reaction Past Psychological History: No Psychological Hx Reported Smoking Status: Never smoker Past Alcohol Use History: None Reported Past Drug Use History: None Reported - Past Family History Mother Family Medical History: CVA/TIA, Diabetes Mellitus, Myocardial Infarction (ME) Father Family Medical History: CVA/TIA General Exam Limitations: no limitations General appearance: alert, in no apparent distress Head exam: Present: atraumatic, normocephalic, normal inspection Eye exam: Present: normal appearance, PERRL, EOMI. Absent: scleral icterus, conjunctival injection, periorbital swelling ENT exam: Present: normal exam, mucous membranes moist Neck exam: Present: normal inspection. Absent: tenderness, meningismus, lymphadenopathy Respiratory exam: Present: normal lung sounds bilaterally. Absent: respiratory distress, wheezes, rales, rhonchi, stridor Cardiovascular Exam: Present: regular rate, normal rhythm, normal heart sounds. Absent: systolic murmur, diastolic murmur, rubs, gallop, clicks GI/Abdominal exam: Present: soft, normal bowel sounds. Absent: distended, tenderness, guarding, rebound, rigid Extremities exam: Present: normal inspection, full ROM, normal capillary refill. Absent: tenderness, pedal edema, joint swelling, calf tenderness Back exam: Present: normal inspection Neurological exam: Present: alert, oriented X3, CN II-XII intact Psychiatric exam: Present: normal affect, normal mood Skin exam: Present: warm, dry, intact, normal color. Absent: rash Course Vital Signs 01/13/18 01/13/18 01/13/18 17:28 17:44 17:51 Temperature 99.0 F Pulse Rate 82 Pulse Rate [ 77 Bilateral Supine Pulse Oximetery] Respiratory 18 Rate Blood Pressure 202/109 205/97 O2 Sat by Pulse 98 Oximetry - Reevaluation(s) Reevaluation #1: 01/13/18 18:39 Patient's medical record is reviewed including prior kidney function Reevaluation #2: 01/13/18 18:40 Blood pressures improved here in the ER EKG Findings - EKG Comments: EKG Findings:: EKG shows normal sinus rhythm rate of 72, [place] 146, QRS 80, QTC 407 Medical Decision Making - Medical Decision Making 69 female the ER for evaluation presented today for evaluation regards to elevated blood pressure. We'll admit her blood pressure medication and patient can be discharged home - Lab Data Result diagrams: 01/13/18 17:45 01/13/18 17:45 Lab Results 09/04/18 09/04/18 09/04/18 Range/Units 17:45 17:45 17:45 WBC 9.3 (3.8-10.6) k/uL RBC 5.67 (4.30-5.90) m/uL Hgb 17.4 (13.0-17.5) gm/dL Hct 51.0 (39.0-53.0) % MCV 89.9 (80.0-100.0) fL MCH 30.7 (25.0-35.0) pg MCHC 34.2 (31.0-37.0) g/dL RDW 13.7 (11.5-15.5) % Plt Count 268 (150-450) k/uL Neutrophils % 63 % Lymphocytes % 27 % Monocytes % 5 % Eosinophils % 3 % Basophils % 0 % Neutrophils # 5.8 (1.3-7.7) k/uL Lymphocytes # 2.5 (1.0-4.8) k/uL Monocytes # 0.5 (0-1.0) k/uL Eosinophils # 0.3 (0-0.7) k/uL Basophils # 0.0 (0-0.2) k/uL Sodium 140 (137-145) mmol/L Potassium 4.2 (3.5-5.1) mmol/L Chloride 102 (98-107) mmol/L Carbon Dioxide 27 (22-30) mmol/L Anion Gap 11 mmol/L BUN 18 (9-20) mg/dL Creatinine 1.22 (0.66-1.25) mg/dL Est GFR (CKD-EPI)AfAm 66 (>60 ml/min/1.73 sqM) Est GFR (CKD-EPI)NonAf 57 (>60 ml/min/1.73 sqM) Glucose 91 (74-99) mg/dL Calcium 9.9 (8.4-10.2) mg/dL Phosphorus 3.5 (2.5-4.5) mg/dL Magnesium 1.4 L (1.6-2.3) mg/dL Total Bilirubin 0.7 (0.2-1.3) mg/dL AST 26 (17-59) U/L ALT 33 (21-72) U/L Alkaline Phosphatase 67 (38-126) U/L Total Creatine Kinase 125 (55-170) U/L CK-MB (CK-2) 3.4 H* (0.0-2.4) ng/mL CK-MB (CK-2) Rel Index 2.7 Troponin I <0.012 (0.000-0.034) ng/mL Total Protein 7.2 (6.3-8.2) g/dL Albumin 4.4 (3.5-5.0) g/dL Disposition Clinical Impression: Hypertension Disposition: HOME SELF-CARE Condition: Good Instructions: Hypertension (ED) Is patient prescribed a controlled substance at d/c from ED?: No Referrals: Rama Putnam MD [Primary Care Provider] - 1-2 days
[2018-01-13 18:11] LABS: Albumin 4.4 g/dL (3.5-5.0); Calcium 9.9 mg/dL (8.4-10.2); Magnesium 1.4 mg/dL (1.6-2.3); Phosphorus 3.5 mg/dL (2.5-4.5); Potassium 4.2 mmol/L (3.5-5.1); Total Bilirubin 0.7 mg/dL (0.2-1.3); Total Protein 7.2 g/dL (6.3-8.2)
[2018-01-13 18:17] LABS: Creatine Kinase 125 U/L (55-170)
[2018-01-13 18:30] LABS: Troponin I <0.012 ng/mL (0.000-0.034)
[2018-01-13 18:38] LABS: Creatine Kinase MB 3.4 ng/mL (0.0-2.4)
[2018-01-13 19:23] VITALS: BP 152/81; PULSE 68; TEMP 97.9
== END 2018-01-13 19:23 | disposition home or self-care (01) ==
LOC: EC 17:14
DX: I10 Essential (primary) hypertension (principal); E11.9 Type 2 diabetes mellitus without complications; E78.5 Hyperlipidemia, unspecified; Z98.890 Other specified postprocedural states; Z79.82 Long term (current) use of aspirin; Z79.84 Long term (current) use of oral hypoglycemic drugs; Z79.899 Other long term (current) drug therapy
CPT/HCPCS: 36415; 80053; 82550; 82553; 83735; 84100; 84484; 85025; 93005; 96374; 99284

== ENCOUNTER → 2018-01-28 | Outpatient (CLI) | payer MEDICARE ==
--- NOTE | 2018-01-28 16:28 | US ---
EXAMINATION TYPE: US renal artery duplex complet DATE OF EXAM: 01/28/2018 COMPARISON: NONE CLINICAL HISTORY: I10 Hypertension. MEASUREMENTS: RENAL SIZE: Rt Kidney: 11.6 x 4.5 x 4.6 Lt Kidney: 13.2 x 3.8 x 4.9 RESISTANCE INDEX Right: 0.7 Left: 0.6 RA/AO RATIO (< 3.5 ) Right: 1.8 Left: 1.8 RA VELOCITY ( < 180 cm/s) Right: 115cm/s Left: 107 cm/s Right kidney cyst noted measuring 0.9 x 0.8 x 0.7cm Left kidney measures large hyperechoic round structure measuring 0.9 x 0.8 x 0.8cm, anechoic area low er measuring 1.7 x 1.6 x 1.1cm No evidence of renal artery stenosis seen bilaterally. IMPRESSION: 1. No suspicious changes to suggest renal artery stenosis. 2. Simple cyst right kidney. 3. Hyperechoic area within the cortex of the superior pole left kidney could been angiomyolipoma. Mon itoring is recommended.
== END | disposition home or self-care (01) ==
LOC: RADUSMAIN 07:53
PROVIDERS: ATTEND Family Medicine
DX: N28.1 Cyst of kidney, acquired (principal); R93.422 Abnormal radiologic findings on diagnostic imaging of left kidney; I10 Essential (primary) hypertension
CPT/HCPCS: 93975

== ENCOUNTER 2018-03-13 09:19 | Inpatient (IN) | payer MEDICARE ==
[2018-03-13] MEDS ORDERED: SODIUM CHLORIDE 0.9% 1,000 ML IV STA ×2 (09:41)
[2018-03-13 10:19] LABS: Basophils % (A) 0 %; Eosinophils # (A) 0.1 k/uL (0-0.7); Eosinophils % (A) 1 %; HCT 54.2 % (39.0-53.0); HGB 17.9 gm/dL (13.0-17.5); Lymphocytes # (A) 1.7 k/uL (1.0-4.8); Lymphocytes % (A) 19 %; MCH 30.2 pg (25.0-35.0); MCV 91.4 fL (80.0-100.0); Mean Platelet Volume 6.7; Monocytes # (A) 0.5 k/uL (0-1.0); Monocytes % (A) 5 %; Neutrophils # (A) 6.7 k/uL (1.3-7.7); Neutrophils % (A) 73 %; Platelet Count 167 k/uL (150-450); RBC 5.92 m/uL (4.30-5.90); RDW 13.6 % (11.5-15.5); WBC 9.1 k/uL (3.8-10.6)
[2018-03-13 10:27] LABS: Albumin 4.1 g/dL (3.5-5.0); Calcium 9.8 mg/dL (8.4-10.2); Potassium 4.2 mmol/L (3.5-5.1); Total Bilirubin 1.1 mg/dL (0.2-1.3); Total Protein 6.9 g/dL (6.3-8.2)
[2018-03-13 10:43] LABS: Creatine Kinase 66 U/L (55-170)
--- NOTE | 2018-03-13 10:45 | ED ---
Neuro HPI - General Chief Complaint: Neuro Symptoms/Deficit Stated Complaint: trouble speaking/headache Time Seen by Provider: 03/13/18 09:41 Source: patient, RN notes reviewed, old records reviewed Mode of arrival: wheelchair Limitations: no limitations - History of Present Illness Is the patient presenting with stroke symptoms?: No Initial Comments: This is a 77-year-old male to the ER for evaluation. Patient presents today for evaluation patient does for evaluation regards to expressive aphasia, patient awoke with symptoms today. No dyspnea speaking with his . Patient resents ER currently he has no complaints, states his speech is back to normal denies headache, denies any other neurological issue Location: speech History of same: No Place: home Severity: moderate Improves With: time Worsens With: none On Anticoagulants: No Associated Symptoms: denies other symptoms - Related Data Home Medications: Home Medications Medication Instructions Recorded Confirmed Aspirin EC [Ecotrin Low Dose] 81 mg PO DAILY 01/02/18 03/13/18 glipiZIDE XL [Glucotrol XL] 5 mg PO DAILY 01/02/18 03/13/18 metFORMIN HCL [Glucophage] 500 mg PO BID 01/02/18 03/13/18 Diltiazem HCl [Diltiazem ER] 240 mg PO DAILY 03/13/18 03/13/18 Simvastatin [Zocor] 20 mg PO HS 03/13/18 03/13/18 Testosterone Cypionate 200 mg IM Q14D 03/13/18 03/13/18 [Depo-Testosterone] cloNIDine 0.2 MG/24HR PATCH 1 patch TOPICAL MO 03/13/18 03/13/18 [Catapres-TTS] Allergies/Adverse Reactions: Allergies Allergy/AdvReac Type Severity Reaction Status Date / Time No Known Allergies Allergy Verified 03/13/18 09:33 Review of Systems ROS Statement: Those systems with pertinent positive or pertinent negative responses have been documented in the HPI. ROS Other: All systems not noted in ROS Statement are negative. General Exam - General Exam Comments Initial Comments: NIH of 0 Limitations: no limitations General appearance: alert, in no apparent distress Head exam: Present: atraumatic, normocephalic, normal inspection Eye exam: Present: normal appearance, PERRL, EOMI. Absent: scleral icterus, conjunctival injection, periorbital swelling ENT exam: Present: normal exam, mucous membranes moist Neck exam: Present: normal inspection. Absent: tenderness, meningismus, lymphadenopathy Respiratory exam: Present: normal lung sounds bilaterally. Absent: respiratory distress, wheezes, rales, rhonchi, stridor Cardiovascular Exam: Present: regular rate, normal rhythm, normal heart sounds. Absent: systolic murmur, diastolic murmur, rubs, gallop, clicks GI/Abdominal exam: Present: soft, normal bowel sounds. Absent: distended, tenderness, guarding, rebound, rigid Extremities exam: Present: normal inspection, full ROM, normal capillary refill. Absent: tenderness, pedal edema, joint swelling, calf tenderness Back exam: Present: normal inspection Neurological exam: Present: alert, oriented X3, CN II-XII intact Psychiatric exam: Present: normal affect, normal mood Skin exam: Present: warm, dry, intact, normal color. Absent: rash Stroke MDM - Lab Data Result diagrams: 03/13/18 10:02 03/13/18 10:02 Lab Results 03/13/18 03/13/18 03/13/18 Range/Units 10:02 10:02 10:02 WBC 9.1 (3.8-10.6) k/uL RBC 5.92 H (4.30-5.90) m/uL Hgb 17.9 H (13.0-17.5) gm/dL Hct 54.2 H (39.0-53.0) % MCV 91.4 (80.0-100.0) fL MCH 30.2 (25.0-35.0) pg MCHC 33.0 (31.0-37.0) g/dL RDW 13.6 (11.5-15.5) % Plt Count 167 (150-450) k/uL Neutrophils % 73 % Lymphocytes % 19 % Monocytes % 5 % Eosinophils % 1 % Basophils % 0 % Neutrophils # 6.7 (1.3-7.7) k/uL Lymphocytes # 1.7 (1.0-4.8) k/uL Monocytes # 0.5 (0-1.0) k/uL Eosinophils # 0.1 (0-0.7) k/uL Basophils # 0.0 (0-0.2) k/uL PT (9.0-12.0) sec INR (<1.2) APTT (22.0-30.0) sec Sodium 139 (137-145) mmol/L Potassium 4.2 (3.5-5.1) mmol/L Chloride 102 (98-107) mmol/L Carbon Dioxide 27 (22-30) mmol/L Anion Gap 10 mmol/L BUN 15 (9-20) mg/dL Creatinine 1.09 (0.66-1.25) mg/dL Est GFR (CKD-EPI)AfAm 75 (>60 ml/min/1.73 sqM) Est GFR (CKD-EPI)NonAf 65 (>60 ml/min/1.73 sqM) Glucose 113 H (74-99) mg/dL Calcium 9.8 (8.4-10.2) mg/dL Total Bilirubin 1.1 (0.2-1.3) mg/dL AST 25 (17-59) U/L ALT 49 (21-72) U/L Alkaline Phosphatase 62 (38-126) U/L Total Creatine Kinase 66 (55-170) U/L CK-MB (CK-2) 1.9 (0.0-2.4) ng/mL CK-MB (CK-2) Rel Index 2.9 Troponin I <0.012 (0.000-0.034) ng/mL Total Protein 6.9 (6.3-8.2) g/dL Albumin 4.1 (3.5-5.0) g/dL 03/13/18 Range/Units 10:02 WBC (3.8-10.6) k/uL RBC (4.30-5.90) m/uL Hgb (13.0-17.5) gm/dL Hct (39.0-53.0) % MCV (80.0-100.0) fL MCH (25.0-35.0) pg MCHC (31.0-37.0) g/dL RDW (11.5-15.5) % Plt Count (150-450) k/uL Neutrophils % % Lymphocytes % % Monocytes % % Eosinophils % % Basophils % % Neutrophils # (1.3-7.7) k/uL Lymphocytes # (1.0-4.8) k/uL Monocytes # (0-1.0) k/uL Eosinophils # (0-0.7) k/uL Basophils # (0-0.2) k/uL PT 10.7 (9.0-12.0) sec INR 1.1 (<1.2) APTT 24.9 (22.0-30.0) sec Sodium (137-145) mmol/L Potassium (3.5-5.1) mmol/L Chloride (98-107) mmol/L Carbon Dioxide (22-30) mmol/L Anion Gap mmol/L BUN (9-20) mg/dL Creatinine (0.66-1.25) mg/dL Est GFR (CKD-EPI)AfAm (>60 ml/min/1.73 sqM) Est GFR (CKD-EPI)NonAf (>60 ml/min/1.73 sqM) Glucose (74-99) mg/dL Calcium (8.4-10.2) mg/dL Total Bilirubin (0.2-1.3) mg/dL AST (17-59) U/L ALT (21-72) U/L Alkaline Phosphatase (38-126) U/L Total Creatine Kinase (55-170) U/L CK-MB (CK-2) (0.0-2.4) ng/mL CK-MB (CK-2) Rel Index Troponin I (0.000-0.034) ng/mL Total Protein (6.3-8.2) g/dL Albumin (3.5-5.0) g/dL - NIH Stroke Scale 1a. Level of Consciousness: (0) alert 1b. LOC Questions: (0) answers correctly 1c. LOC Commands: (0) performs tasks correctly 2. Best Gaze: (0) normal 3. Visual: (3) bilateral hemianopia 5a. Motor Arm Left: (0) no drift 5b. Motor Arm Right: (0) no drift 6a. Motor Leg Left: (0) no drift 6b. Motor Leg Right: (0) no drift 7. Limb Ataxia: (0) absent 8. Sensory: (0) normal 9. Best Language: (0) no aphasia 10. Dysarthria: (0) normal 11. Extinction/Inattention: (0) no abnormality - Thrombolytic Inclusion/Exclusion Thrombolytic Exclusion Criteria: Onset of Symptoms Unknown Thrombolytic Inclusion Criteria: NIH Stroke Scale Deficit (No deficit) Thrombolytic Contraindications: Rapidly Improving s/s - Medical Decision Making 77 male the ER for evaluation of possible CVA with expressive aphasia. Patient has no current neurological symptoms or complaints. CT CTA negative for acute disease and patient will be admitted for neurological evaluation - EKG Data -: EKG Interpreted by Me (EKG shows sinus tachycardia rate of 58, SC 150, QRS 90 , QTc 400) EKG shows normal: sinus rhythm Rate: bradycardia Past Medical History Past Medical History: Diabetes Mellitus, GERD/Reflux, Hyperlipidemia, Hypertension, Osteoarthritis (OA) Additional Past Medical History / Comment(s): "past ulcer long time ago", kidney stone, gallstone History of Any Multi-Drug Resistant Organisms: None Reported Past Surgical History: Back Surgery Additional Past Surgical History / Comment(s): back surgery, cataract Past Anesthesia/Blood Transfusion Reactions: No Reported Reaction Past Psychological History: No Psychological Hx Reported Smoking Status: Never smoker Past Alcohol Use History: None Reported Past Drug Use History: None Reported - Past Family History Mother Family Medical History: CVA/TIA, Diabetes Mellitus, Myocardial Infarction (OR) Father Family Medical History: CVA/TIA Course Vital Signs 03/13/18 03/13/18 03/13/18 09:33 10:30 11:00 Temperature 98.5 F Pulse Rate 69 59 L 59 L Respiratory 18 18 15 Rate Blood Pressure 177/88 164/86 181/94 O2 Sat by Pulse 97 96 86 L Oximetry 03/13/18 03/13/18 03/13/18 11:30 12:00 13:00 Temperature Pulse Rate 64 60 67 Respiratory 22 16 19 Rate Blood Pressure 174/93 163/92 156/91 O2 Sat by Pulse 74 L 96 86 L Oximetry 03/13/18 03/13/18 03/13/18 13:30 14:00 15:00 Temperature 98.0 F Pulse Rate 70 69 74 Respiratory 16 18 16 Rate Blood Pressure 141/98 140/72 149/86 O2 Sat by Pulse 99 96 98 Oximetry - Reevaluation(s) Reevaluation #1: Record is reviewed [place] patient is informed her results, questions answered Patient continues to have resolution of symptoms Patient is not a TPA candidate secondary to resolution of symptoms Disposition Clinical Impression: Cerebrovascular accident Disposition: ADMITTED IP TO THIS [facility] Condition: Fair Is patient prescribed a controlled substance at d/c from ED?: No
[2018-03-13 10:55] LABS: Creatine Kinase MB 1.9 ng/mL (0.0-2.4); Troponin I <0.012 ng/mL (0.000-0.034)
--- NOTE | 2018-03-13 10:56 | CT ---
EXAMINATION TYPE: CT brain wo con for TPA DATE OF EXAM: 03/13/2018 COMPARISON: None HISTORY: Neuro deficits CT DLP: 552.6 mGycm Automated exposure control for dose reduction was used. TECHNIQUE: CT scan of the head is performed without contrast. FINDINGS: There is no acute intracranial hemorrhage or midline shift identified. No suspicious extr a-axial fluid collection. There is mild symmetric ventricular and sulcal prominence consistent with d iffuse age-related cerebral atrophy. Punctate calcifications are seen within the left basal ganglia. There are few areas of low-attenuation in the periventricular white matter most commonly related to chronic small vessel ischemic change. The globes are intact and the visualized sinuses are clear. IMPRESSION: No acute intracranial hemorrhage or midline shift. 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
[2018-03-13 11:19] LABS: INR 1.1 (<1.2); Partial Thromboplastin Time 24.9 sec (22.0-30.0); Prothrombin Time 10.7 sec (9.0-12.0)
[2018-03-13] MEDS ORDERED: ASPIRIN 325 MG TAB PO STA (11:26)
[2018-03-13] MEDS: SODIUM CHLORIDE 0.9% 1,000 ML IV SCH ×2 (11:33→22:04)
--- NOTE | 2018-03-13 12:05 | CT ---
EXAMINATION TYPE: CT angio head neck DATE OF EXAM: 03/13/2018 HISTORY: Neuro Deficits COMPARISON: NONE CT DLP: 414.1 mGycm. Automated Exposure Control for Dose Reduction was Utilized. TECHNIQUE: CTA scan of the neck is performed with IV Contrast, patient injected with 65 mL of Isovue 370, axial images are obtained, coronal and sagittal reformatted images are reviewed. Three-D recons tructed images are created on an independent workstation and reviewed. FINDINGS: Carotid/Vascular Structures: There is a conventional three-vessel branch pattern of the aortic arch. No hemodynamically significant stenosis is seen within the common carotid arteries. Minimal nonhemody namically significant plaquing is seen of the aortic arch and of the right carotid bulb. There is richelle roximately 60% stenosis in a short segment of the right internal carotid artery spanning a distance o f 1.1 cm just after the bifurcation from the carotid bulb. Similarly on the left there is a short seg ment area of focal stenosis of approximately 50% spanning a distance of 1.5 cm. Remainder the bilater al cervical portions of the internal carotid arteries are patent and unremarkable. Major intracranial vasculature appear patent without dissection, hemodynamically significant stenosis , or aneurysm. No arterial venous malformation is seen. Other: Minimal dependent subsegmental atelectasis is seen of the lung bases. Moderate degenerative ch anges of the cervical spine are noted. IMPRESSION: 1. No evidence of vascular occlusion, dissection or intracranial aneurysm. Approximately 60% short se gment stenoses of the bilateral internal carotid arteries just distal to the carotid bulbs.
--- NOTE | 2018-03-13 13:10 | P.HPIM ---
History of Present Illness H&P Date: 03/13/18 Chief Complaint: Trouble speaking This is a 77-year-old male, patient of Dr. Putnam. He has a known past medical history of hypertension, hyperlipidemia, diabetes mellitus type 2, GERD, hypogonadism and chronic back pain from herniated disks. Patient presents to the emergency room with complaints of difficulty with his speech. Symptoms were noticed around 8:00 this morning when patient tried to talk to his his could not understand what her was saying. "He was speaking gibberish" per . Symptoms lasted for a couple of hours. By the time he came into the emergency room symptoms were almost resolved. He also complained of a slight headache. Denied any facial droop any weakness or numbness on one side of the body. Denies any past history of strokes or mini strokes. He denies any smoking history. Patient's speech has now normalized. Computed tomography scan of the brain showed no acute changes. 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 CTA of the head and neck shows no evidence of vascular occlusion, dissection or intracranial aneurysm. A proximally 60% short segment stenosis of the bilateral internal carotid arteries just distal to the carotid bulbs. Patient has been started on a full aspirin and neurology has been consulted. Also PT OT and speech therapy have been consulted. Patient denies any fever or chills or sweats. Denies any nausea or vomiting. Denies any bowel movement changes or urinary symptoms. He does admit to some high emotional stress. He had a good friend who recently passed with the last couple a days. Also throughout the year he's had a significant family member pass away and another friend. Patient was noted to have a high blood pressure of 177/88 on admission. Blood pressure did get up to 181/94. Review of Systems Please refer to HPI otherwise unremarkable Past Medical History Past Medical History: Diabetes Mellitus, GERD/Reflux, Hyperlipidemia, Hypertension, Osteoarthritis (OA) Additional Past Medical History / Comment(s): "past ulcer long time ago", kidney stone, gallstone History of Any Multi-Drug Resistant Organisms: None Reported Past Surgical History: Back Surgery Additional Past Surgical History / Comment(s): back surgery, cataract Past Anesthesia/Blood Transfusion Reactions: No Reported Reaction Past Psychological History: No Psychological Hx Reported Smoking Status: Never smoker Past Alcohol Use History: None Reported Past Drug Use History: None Reported - Past Family History Mother Family Medical History: CVA/TIA, Diabetes Mellitus, Myocardial Infarction ([place]) Father Family Medical History: CVA/TIA Medications and Allergies Home Medications Medication Instructions Recorded Confirmed Type Aspirin EC [Ecotrin Low Dose] 81 mg PO DAILY 01/02/18 03/13/18 History glipiZIDE XL [Glucotrol XL] 5 mg PO DAILY 01/02/18 03/13/18 History metFORMIN HCL [Glucophage] 500 mg PO BID 01/02/18 03/13/18 History Diltiazem HCl [Diltiazem ER] 240 mg PO DAILY 03/13/18 03/13/18 History Simvastatin [Zocor] 20 mg PO HS 03/13/18 03/13/18 History Testosterone Cypionate 200 mg IM Q14D 03/13/18 03/13/18 History [Depo-Testosterone] cloNIDine 0.2 MG/24HR PATCH 1 patch TOPICAL MO 03/13/18 03/13/18 History [Catapres-TTS] Allergies Allergy/AdvReac Type Severity Reaction Status Date / Time No Known Allergies Allergy Verified 03/13/18 09:33 Physical Exam Vitals: Vital Signs Temp Pulse Resp BP Pulse Ox 03/13/18 11:30 64 22 174/93 74 L 03/13/18 11:00 59 L 15 181/94 86 L 03/13/18 10:30 59 L 18 164/86 96 03/13/18 09:33 98.5 F 69 18 177/88 97 Intake and Output 03/12/18 03/13/18 03/13/18 22:59 06:59 14:59 Other: Weight 81.647 kg Head normocephalic Neck supple Lungs clear to auscultation bilaterally no wheezing or crackles Heart regular rate and rhythm S1-S2, no rub or gallop Abdomen is soft nontender nondistended positive bowel sounds no hepatosplenomegaly Extremities no edema Neuro alert and orientated to 2. The year he reports as 1918. No facial droop no slurred speech at this time. Hand conditioning machine operator equal bilaterally lower extremity strength equal bilaterally Results CBC & Chem 7: 03/13/18 10:02 03/13/18 10:02 Labs: Abnormal Lab Results - Last 24 Hours (Table) 03/13/18 03/13/18 Range/Units 10:02 10:02 RBC 5.92 H (4.30-5.90) m/uL Hgb 17.9 H (13.0-17.5) gm/dL Hct 54.2 H (39.0-53.0) % Glucose 113 H (74-99) mg/dL Assessment and Plan Assessment: 1. Difficulty with speech lasting for about 2 hours. Possibly secondary to a TIA. Computed tomography scan of the brain showed no evidence of stroke. CTA of the head and neck showing approximate 60% short segment stenosis bilateral internal carotid arteries. Patient has been started on a full aspirin daily. Neurology consulted. Continue with telemetry monitoring. EKG showing sinus bradycardia with a heart rate of 58. Check echo consult PT OT and speech therapy 2. Essential hypertension: Elevated blood pressures on admission. Continue the Catapres patch. Resume his Cardizem 3. Diabetes mellitus type 2: Resume glipizide. Hold metformin during hospitalization. Add NovoLog sliding scale. Check A1c 4. Hyperlipidemia: Continue statin. Check lipid panel 5. Chronic back pain with herniated disks followed by Dr. Tracy outpatient. Has had steroid spinal injections in the past 6. Hypogonadism received testosterone injection every 2 weeks 7. Osteoarthritis GI prophylaxis Pepcid and DVT prophylaxis Lovenox Time with Patient: Greater than 30 (Greater than 60% of the total time spent in counseling and coordination of care.I performed an examination of the patient and discussed their management with the physician Freezing Machine Operator. I have reviewed the Physician Freezing Machine Operator's notes and agree with the documented findings and plan of care)
[2018-03-13] MEDS ORDERED: ENALAPRILAT 1.25 MG/ML 1 ML VIAL IVP PRN (13:38)
[2018-03-13] MEDS: INSULIN ASPART 100 UNIT/ML 1 ML 10 ML VIAL SQ SCH ×2 (14:39→22:04)
[2018-03-13 14:40] LABS: Glucose,Whole Blood 150 mg/dL (75-99)
[2018-03-13 19:41] VITALS: RESP 16
--- NOTE | 2018-03-13 20:23 | P.CNNES ---
History of Present Illness Consult date: 03/13/18 History of Present Illness: The patient is a 77-year-old right-handed white male who states it's hair around 7 AM this morning he developed garbled speech was talking to his . This lasted for about 2 hours. He states his speech sounded like gibberish. EMS was called and he was transported to [facility] in his symptoms soon resolved. He was found not to be a TPA candidate. He denied any other neurologic symptoms such as focal weakness numbness, visual changes, or dizziness. Does take baby aspirin daily. He does have a history of diabetes and hypertension and was recently hospitalized with uncontrolled hypertension. He denies any past history of speech disturbance or TIA. He states his blood pressure was elevated when he woke up this morning. He had a CTA of the head and neck which showed approximately 60% short segment stenosis of bilateral ICA and vascular surgery has been consulted. Review of Systems Constitutional: Reports as per HPI Ears, nose, mouth and throat: Reports as per HPI Cardiovascular: Denies chest pain, Denies shortness of breath Respiratory: Denies cough Gastrointestinal: Denies abdominal pain, Denies diarrhea, Denies nausea, Denies vomiting Neurological: Denies numbness, Denies weakness Past Medical History Past Medical History: Diabetes Mellitus, GERD/Reflux, Hyperlipidemia, Hypertension, Osteoarthritis (OA) Additional Past Medical History / Comment(s): "past ulcer long time ago", kidney stone, gallstone History of Any Multi-Drug Resistant Organisms: None Reported Past Surgical History: Back Surgery Additional Past Surgical History / Comment(s): back surgery, cataract Past Anesthesia/Blood Transfusion Reactions: No Reported Reaction Past Psychological History: No Psychological Hx Reported Smoking Status: Never smoker Past Alcohol Use History: None Reported Past Drug Use History: None Reported - Past Family History Mother Family Medical History: CVA/TIA, Diabetes Mellitus, Myocardial Infarction ([place]) Additional Family Medical History / Comment(s): Mother had a [place] in her 40s. She had a CVA. She lived to be 72 yrs. old. Father Family Medical History: CVA/TIA Additional Family Medical History / Comment(s): Father had a CVA and was an invalid for 15 yrs. Medications and Allergies Home Medications Medication Instructions Recorded Confirmed Type Aspirin EC [Ecotrin Low Dose] 81 mg PO DAILY 01/02/18 03/13/18 History glipiZIDE XL [Glucotrol XL] 5 mg PO DAILY 01/02/18 03/13/18 History metFORMIN HCL [Glucophage] 500 mg PO BID 01/02/18 03/13/18 History Diltiazem HCl [Diltiazem ER] 240 mg PO DAILY 03/13/18 03/13/18 History Simvastatin [Zocor] 20 mg PO HS 03/13/18 03/13/18 History Testosterone Cypionate 200 mg IM Q14D 03/13/18 03/13/18 History [Depo-Testosterone] cloNIDine 0.2 MG/24HR PATCH 1 patch TOPICAL MO 03/13/18 03/13/18 History [Catapres-TTS] Allergies Allergy/AdvReac Type Severity Reaction Status Date / Time No Known Allergies Allergy Verified 03/13/18 09:33 Physical Examination - Vital Signs Vital Signs: Vital Signs Temp Pulse Pulse Resp BP BP Pulse Ox 03/13/18 19:41 98.5 F 63 16 139/75 95 03/13/18 17:47 98.1 F 67 17 144/80 95 03/13/18 17:00 98.2 F 64 16 138/85 97 03/13/18 16:00 69 19 143/77 96 03/13/18 15:30 67 18 149/86 94 L 03/13/18 15:00 74 16 149/86 98 03/13/18 14:00 98.0 F 69 18 140/72 96 03/13/18 13:30 70 16 141/98 99 03/13/18 13:00 67 19 156/91 86 L 03/13/18 12:00 60 16 163/92 96 03/13/18 11:30 64 22 174/93 74 L 03/13/18 11:00 59 L 15 181/94 86 L 03/13/18 10:30 59 L 18 164/86 96 03/13/18 09:33 98.5 F 69 18 177/88 97 Intake and Output 03/13/18 03/13/18 03/13/18 06:59 14:59 22:59 Intake Total 180 Balance 180 Intake: Oral 180 Other: Voiding Method Toilet # Voids 1 Weight 81.647 kg - Constitutional General appearance: average body habitus - EENT EENT: PERRL - Respiratory Respiratory: lungs clear - Cardiovascular Cardiovascular: regular rate, normal S1, normal S2 - Neurologic Neurologic examination: Mental status: He was awake alert and oriented 3. His speech was fluent. There is no aphasia or dysarthria. Cranial nerve examination: Cranial nerves II-12 are grossly intact Motor examination: Testing testing was 5 out of 5 throughout Sensory examination: Intact to light touch next Deep tendon reflexes: Intact and symmetric Results - Laboratory Findings CBC and BMP: 03/13/18 10:02 03/13/18 10:02 Abnormal Lab Findings: Abnormal Labs 03/13/18 03/13/18 03/13/18 10: 10: 14:29 RBC 5.92 H Hgb 17.9 H Hct 54.2 H Glucose 113 H POC Glucose (mg/dL) 150 H Assessment and Plan (1) TIA (transient ischemic attack) Current Visit: Yes Status: Acute SNOMED Code(s): 042109739 Plan: The patient is a 77-year-old man with an episode of speech disturbance. He had no other associated neurologic symptoms except a mild headache. He also had elevated blood pressure at the time. The patient had episode of expressive aphasia which is likely a TIA. Recommend adding Plavix to a baby aspirin regimen. His risk factors for stroke include diabetes and hypertension and hyperlipidemia. Await vascular surgery recommendations.
[2018-03-13] MEDS ORDERED: ATORVASTATIN 10 MG TAB PO SCH (21:00)
[2018-03-13 21:41] LABS: Glucose,Whole Blood 125 mg/dL (75-99)
[2018-03-13 22:47] LABS: Hemoglobin A1C 6.3 % (4.0-6.0)
[2018-03-14 05:38] LABS: Glucose,Whole Blood 119 mg/dL (75-99)
[2018-03-14] MEDS: INSULIN ASPART 100 UNIT/ML 1 ML 10 ML VIAL SQ SCH ×2 (06:06→12:21)
[2018-03-14 07:14] LABS: Basophils % (A) 0 %; Eosinophils # (A) 0.2 k/uL (0-0.7); Eosinophils % (A) 2 %; HCT 52.4 % (39.0-53.0); HGB 17.5 gm/dL (13.0-17.5); Lymphocytes % (A) 22 %; MCH 30.9 pg (25.0-35.0); MCHC 33.5 g/dL (31.0-37.0); MCV 92.4 fL (80.0-100.0); Mean Platelet Volume 6.9; Monocytes # (A) 0.5 k/uL (0-1.0); Monocytes % (A) 6 %; Neutrophils # (A) 6.3 k/uL (1.3-7.7); Neutrophils % (A) 69 %; Platelet Count 171 k/uL (150-450); RBC 5.67 m/uL (4.30-5.90); RDW 13.6 % (11.5-15.5); WBC 9.2 k/uL (3.8-10.6)
[2018-03-14 07:32] LABS: Albumin 3.8 g/dL (3.5-5.0); Calcium 9.7 mg/dL (8.4-10.2); Potassium 4.5 mmol/L (3.5-5.1); Total Bilirubin 0.8 mg/dL (0.2-1.3); Total Protein 6.4 g/dL (6.3-8.2)
[2018-03-14] MEDS: SODIUM CHLORIDE 0.9% 1,000 ML IV SCH (08:44)
[2018-03-14] MEDS ORDERED: ENOXAPARIN 40 MG/0.4 ML SYRINGE SQ SCH (09:00)
[2018-03-14] MEDS ORDERED: FAMOTIDINE 20 MG TAB PO SCH (09:00)
[2018-03-14] MEDS ORDERED: DILTIAZEM CD 240 MG CAP.ER.24H PO SCH (09:00)
[2018-03-14] MEDS ORDERED: CLOPIDOGREL 75 MG TAB PO SCH (09:00)
[2018-03-14] MEDS ORDERED: ASPIRIN 325 MG TAB PO SCH (09:00)
--- NOTE | 2018-03-14 09:00 | ECHOF ---
Referral Reason:CVA MEASUREMENTS -------- HEIGHT: 172.7 cm WEIGHT: 81.6 kg BP: IVSd: 1.3 cm (0.6 - 1.1) LVIDd: 3.4 cm (3.9 - 5.3) LVPWd: 1.4 cm (0.6 - 1.1) IVSs: 1.6 cm LVIDs: 1.9 cm LVPWs: 1.9 cm LAESV Index (A-L): 25.92 ml/m Ao Diam: 3.4 cm (2.0 - 3.7) AV Cusp: 1.7 cm (1.5 - 2.6) LA Diam: 3.3 cm (2.7 - 3.8) MV EXCURSION: 15.965 mm (> 18.000) MV EF SLOPE: 71 mm/s (70 - 150) EPSS: 0.7 cm MV E Ciro: 0.70 m/s MV DecT: 208 ms MV A Ciro: 1.21 m/s MV E/A Ratio: 0.58 AV maxP.91 mmHg AV meanP.33 mmHg RAP: 5.00 mmHg RVSP: 19.00 mmHg FINDINGS -------- Sinus rhythm. This was a technically good study. The left ventricular size is normal. There is moderate concentric left ventricular hypertrophy. O verall left ventricular systolic function is normal with, an EF between 55 - 60 %. The right ventricle is normal in size and function. The left atrial size is normal. The right atrium is normal in size. Aortic valve is trileaflet and is mildly thickened. There is mild aortic valve sclerosis. The mitral valve leaflets are mildly thickened. Mild mitral regurgitation is present. Mild tricuspid regurgitation present. The right ventricular systolic pressure, as measured by Doppl er, is 19.00mmHg. Pulmonic valve appears structurally normal. The aortic root size is normal. Normal inferior vena cava with normal inspiratory collapse consistent with estimated right atrial pre ssure of 5 mmHg. The pericardium is normal. CONCLUSIONS -------- 1. Sinus rhythm. 2. This was a technically good study. 3. The left ventricular size is normal. 4. There is moderate concentric left ventricular hypertrophy. 5. Overall left ventricular systolic function is normal with, an EF between 55 - 60 %. 6. The right ventricle is normal in size and function. 7. The left atrial size is normal. 8. The right atrium is normal in size. 9. Aortic valve is trileaflet and is mildly thickened. 10. There is mild aortic valve sclerosis. 11. The mitral valve leaflets are mildly thickened. 12. Mild mitral regurgitation is present. 13. Mild tricuspid regurgitation present. 14. The right ventricular systolic pressure, as measured by Doppler, is 19.00mmHg. 15. Pulmonic valve appears structurally normal. 16. The aortic root size is normal. 17. Normal inferior vena cava with normal inspiratory collapse consistent with estimated right atrial pressure of 5 mmHg. 18. The pericardium is normal. HAIRSPRING I INSPECTOR: Karla Borja RDCS
--- NOTE | 2018-03-14 11:05 | CONS ---
CONSULTATION This is a 77-year-old gentleman who came to [facility]. He had an episode of some garbled speech, which lasted for ten minutes with complete recovery. He had no evidence of any neuro symptom. No history of motor deficit. No history of seizure. The patient had a stroke workup including CT of the brain which showed normal. No evidence of bleeding or infarction. The patient also had a CT of the carotids which shows short-segment 60% stenosis bilateral internal carotid artery. MEDICAL HISTORY: History of diabetes, hypertension, hyperlipidemia, osteoarthritis. SURGICAL HISTORY: Patient had back surgery done in the past. PHYSICAL EXAMINATION: NECK: Supple. Trachea central. CHEST: Clear to auscultation. ABDOMEN: Soft, nontender. VASCULAR: Brachial, radial and femoral pulses are present. Central nervous system: Oriented to time and place. Motor function normal. Speech is normal. RECOMMENDATIONS: This is a first episode affecting his speech with complete recovery and patient does not have a critical stenosis of the carotid artery. Both carotid arteries 60% stenosis. CT of the brain is negative for infarction or bleed. Recommend continue with antiplatelet therapy. Control of blood pressure and we will add Plavix and aspirin. We will follow with you. I will discuss with Neurology if he needs to have a MRI of the brain done. Thank you very much for this consultation. MMODL / IJN: [id number] /
[2018-03-14 11:45] LABS: Glucose,Whole Blood 66 mg/dL (75-99)
[2018-03-14 12:17] LABS: Glucose,Whole Blood 80 mg/dL (75-99)
--- NOTE | 2018-03-14 15:00 | P.DS ---
Providers Date of admission: 03/13/18 11:27 Expected date of discharge: 03/14/18 Attending physician: Kayleen Kelly Consults: 03/13/18 11:27 Consult Physician Routine Consulting Provider: Anuj Gillespie Consult Reason/Comments: cva Do you want consulting provider notified?: Yes 03/13/18 13:37 Consult Physician Routine Consulting Provider: Boy Aldridge Consult Reason/Comments: ICA stenosis Do you want consulting provider notified?: Yes Primary care physician: Rama Putnam Hospital Course: Diagnosis on discharge: 1. Difficulty with speech lasting for about 2 hours. Possibly secondary to a TIA. Computed tomography scan of the brain showed no evidence of stroke. CTA of the head and neck showing approximate 60% short segment stenosis bilateral internal carotid arteries. Patient has been started on a full aspirin daily. Neurology consulted. Continue with telemetry monitoring. EKG showing sinus bradycardia with a heart rate of 58. Check echo consult PT OT and speech therapy 2. Essential hypertension: Elevated blood pressures on admission. Continue the Catapres patch. Resume his Cardizem, blood pressure remained elevated during this admission losartan 50 mg by mouth daily was added to regimen 3. Diabetes mellitus type 2: Resume glipizide. Hold metformin during hospitalization. Add NovoLog sliding scale. Check A1c 4. Hyperlipidemia: Continue statin. Check lipid panel 5. Chronic back pain with herniated disks followed by Dr. Tracy outpatient. Has had steroid spinal injections in the past 6. Hypogonadism received testosterone injection every 2 weeks 7. Osteoarthritis Hospital course: This is a 77-year-old male, patient of Dr. Putnam. He has a known past medical history of hypertension, hyperlipidemia, diabetes mellitus type 2, GERD, hypogonadism and chronic back pain from herniated disks. Patient presents to the emergency room with complaints of difficulty with his speech. Symptoms were noticed around 8:00 this morning when patient tried to talk to his his could not understand what her was saying. "He was speaking gibberish" per . Symptoms lasted for a couple of hours. By the time he came into the emergency room symptoms were almost resolved. He also complained of a slight headache. Denied any facial droop any weakness or numbness on one side of the body. Denies any past history of strokes or mini strokes. He denies any smoking history. Patient's speech has now normalized. Computed tomography scan of the brain showed no acute changes. 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 CTA of the head and neck shows no evidence of vascular occlusion, dissection or intracranial aneurysm. A proximally 60% short segment stenosis of the bilateral internal carotid arteries just distal to the carotid bulbs. Patient has been started on a full aspirin and neurology has been consulted. Also PT OT and speech therapy have been consulted. Patient denies any fever or chills or sweats. Denies any nausea or vomiting. Denies any bowel movement changes or urinary symptoms. He does admit to some high emotional stress. He had a good friend who recently passed with the last couple a days. Also throughout the year he's had a significant family member pass away and another friend. Patient was noted to have a high blood pressure of 177/88 on admission. Blood pressure did get up to 181/94. On 03/14/2018 patient is alert and oriented 3 in no apparent distress he is still complaining of difficulty finding words sometimes while he is talking otherwise he denies any complaints at this time blood pressure remained elevated patient was maintained on Cardizem 240 mg by mouth daily and Catapres patch he received IV Vasotec on a when necessary basis during this admission at this point losartan 50 mg by mouth daily will be added to his regimen patient should be followed by his primary care physician very closely as outpatient for reevaluation of blood pressure and adjustment of medications. At the time of discharge patient was given a prescription for Plavix and a prescription for losartan otherwise he will continue his home medication as prior to admission Patient Condition at Discharge: Fair Plan - Discharge Summary Discharge Rx Participant: No New Discharge Prescriptions: No Action Aspirin EC [Ecotrin Low Dose] 81 mg PO DAILY glipiZIDE XL [Glucotrol XL] 5 mg PO DAILY metFORMIN HCL [Glucophage] 500 mg PO BID Simvastatin [Zocor] 20 mg PO HS cloNIDine 0.2 MG/24HR PATCH [Catapres-TTS] 1 patch TOPICAL MO Diltiazem HCl [Diltiazem ER] 240 mg PO DAILY Testosterone Cypionate [Depo-Testosterone] 200 mg IM Q14D Discharge Medication List Aspirin EC [Ecotrin Low Dose] 81 mg PO DAILY 01/02/18 [History] glipiZIDE XL [Glucotrol XL] 5 mg PO DAILY 01/02/18 [History] metFORMIN HCL [Glucophage] 500 mg PO BID 01/02/18 [History] Diltiazem HCl [Diltiazem ER] 240 mg PO DAILY 03/13/18 [History] Simvastatin [Zocor] 20 mg PO HS 03/13/18 [History] Testosterone Cypionate [Depo-Testosterone] 200 mg IM Q14D 03/13/18 [History] cloNIDine 0.2 MG/24HR PATCH [Catapres-TTS] 1 patch TOPICAL MO 03/13/18 [History] Follow up Appointment(s)/Referral(s): Rama Putnam MD [Primary Care Provider] - 1-2 days
[2018-03-14] MEDS ORDERED: LOSARTAN 50 MG TAB PO SCH ×2 (15:15→16:45)
[2018-03-14 16:11] VITALS: BP 148/92; PULSE 62; TEMP 97.3
[2018-03-16] MEDS ORDERED: cloNIDine 0.2 MG/24HR PATCH TRANSDERM SCH (09:00)
--- NOTE | 2018-03-17 10:17 | CDI ---
Last Revision, April 2017 Documentation Clarification Form Date: 03/17/18 From: Rosy Bradly Joanne Soraya, [address] Justice Hours-8:30 am & 5 pm MErnie Admit Date: 03/13/2018 11:27:00 AM Patient Name: Raphael Rhodes Visit Number: [id number] Discharge Date: 03/14/18 ATTENTION: The Clinical Documentation Specialists (CDI) and [facility] Coding Staff appreciate your assistance in clarifying documentation. Please respond to the clarification below the line at the bottom and electronically sign. The CDI & [facility] Coding staff will review the response and follow-up if needed. Please note: Queries are made part of the Legal Health Record. If you have any questions, please contact the author of this message via ITS. Kayleen Fishman MD Possible TIA is documented as a diagnosis in the H&P and DS. Patient history/risk factors: Clinical indicators: CT head: No acute intracranial hemorrhage Carotid US: approx 60% short segment stenoses of bilateral internal carotid arteries just distal to the carotid bulgs Echo: mild aortic valve sclerosis, mild mitral regurgitation, mild tricuspid regurgitation Treatment: a full aspirin daily, PT. OT and speech therapy Consult: TIA In your professional opinion, please specify underlying etiology of the transient ischemic attack: Bilateral Carotid Stenosis Precerebral artery syndrome, bilateral Carotid artery syndrome Other (please specify): Etiology unknown or Unable to determine Please continue to document in your progress notes and discharge summary in order to capture severity of illness and risk of mortality. Include clinical findings that support your diagnosis. TIA possibly secondary to Hypertension MTDD
== END 2018-03-14 16:56 | disposition home or self-care (01) | DRG 93 ==
LOC: EC 09:19 → INTOOBSV 11:27 → 3SCARD 11:27 → OBSVTOIN 11:27 → 3SCARD 16:49 → UNDODISIN 03-14 16:56 → UNDODISOB 03-14 16:56
PROVIDERS: ADMIT Internal Medicine; ATTEND Internal Medicine
DX: R47.01 Aphasia (principal); E11.51 Type 2 diabetes mellitus with diabetic peripheral angiopathy without gangrene; R00.1 Bradycardia, unspecified; I10 Essential (primary) hypertension; I65.23 Occlusion and stenosis of bilateral carotid arteries; R40.2362 Coma scale, best motor response, obeys commands, at arrival to emergency department; R40.2142 Coma scale, eyes open, spontaneous, at arrival to emergency department; R40.2252 Coma scale, best verbal response, oriented, at arrival to emergency department; E78.5 Hyperlipidemia, unspecified; G89.29 Other chronic pain; M54.9 Dorsalgia, unspecified; K21.9 Gastro-esophageal reflux disease without esophagitis; E29.1 Testicular hypofunction; M19.91 Primary osteoarthritis, unspecified site; Z79.82 Long term (current) use of aspirin; Z79.84 Long term (current) use of oral hypoglycemic drugs; Z79.899 Other long term (current) drug therapy; Z87.19 Personal history of other diseases of the digestive system; Z87.11 Personal history of peptic ulcer disease; Z87.442 Personal history of urinary calculi; Z82.49 Family history of ischemic heart disease and other diseases of the circulatory system; Z82.3 Family history of stroke; Z83.3 Family history of diabetes mellitus
CPT/HCPCS: 36415; 70450; 70496; 70498; 80053; 80061; 82550; 82553; 83036; 84484; 85025; 85610; 85730; 93005; 93306; 96360; 96361; 96372; 99285

== ENCOUNTER 2018-04-03 06:01 | Day surgery (SDC) | payer MEDICARE ==
[2018-04-03] MEDS ORDERED: ASPIRIN 81 MG PO ONE (08:38)
[2018-04-03] MEDS ORDERED: fentaNYL (PF) 50 MCG/ML 2 ML AMP IVP ONE (08:39)
[2018-04-03] MEDS ORDERED: IV FLUID CONTINUATION 250 ML IV ONE (08:39)
[2018-04-03] MEDS ORDERED: LIDOCAINE 1% INJ 10MG/ML (20 ML MDV) SQ ONE (08:41)
[2018-04-03 09:02] LABS: Glucose,Whole Blood 110 mg/dL (75-99)
--- NOTE | 2018-04-03 10:08 | P.HPIM ---
History of Present Illness H&P Date: 04/03/18 Chief Complaint: Arch study This is a 77-year-old male patient of Dr. Putnam. Patient presented for elective arch study Dr. Aldridge. Patient recently admitted for slurred speech and during that stay was found the patient had 60% stenosis of both carotid arteries. Her Dr. Aldridge patient was seen in all that further testing was done which showed concern for increased stenosis. Patient knows past medical history of CVA, diabetes mellitus, GERD, hyperlipidemia, hypertension and osteoarthritis. Discussed case with Dr. Aldridge. Per Dr. Aldridge arch study test showed clear arteries bilaterally. patient to be discharged today after 6 hours of recovery time. At this time patient is resting comfortably in bed. Patient denies chest pain or shortness of breath. Patient denies nausea vomiting or diarrhea. Patinet denies any urinary burning or frequency Review of Systems please refer to HPI otherwise unremarkable Past Medical History Past Medical History: CVA/TIA, Diabetes Mellitus, GERD/Reflux, Hyperlipidemia, Hypertension, Osteoarthritis (OA) Additional Past Medical History / Comment(s): Pt recently admitted to [facility] with difficulty speaking-TIA, NIDDM type II, gastric ulcer years ago, passed kidney stone, has gallstones, chronic back pain with herniated discs. History of Any Multi-Drug Resistant Organisms: None Reported Past Surgical History: Back Surgery Additional Past Surgical History / Comment(s): 04/03/18 Arch study, low back surgery, bilateral cataract removal with lens implants, Past Anesthesia/Blood Transfusion Reactions: No Reported Reaction Past Psychological History: No Psychological Hx Reported Additional Psychological History / Comment(s): Pt resides with his spouse of 50 yrs. He uses no assistive device. He drives. 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 She had a CVA. She lived to be 72 yrs. old. Father Family Medical History: CVA/TIA Additional Family Medical History / Comment(s): Father had a CVA and was an invalid for 15 yrs. Medications and Allergies Home Medications Medication Instructions Recorded Confirmed Type Aspirin EC [Ecotrin Low Dose] 81 mg PO DAILY 01/02/18 03/13/18 History glipiZIDE XL [Glucotrol XL] 5 mg PO DAILY 01/02/18 03/13/18 History metFORMIN HCL [Glucophage] 500 mg PO BID 01/02/18 03/13/18 History Diltiazem HCl [Diltiazem 24Hr ER] 240 mg PO DAILY 03/13/18 03/13/18 History Simvastatin [Zocor] 20 mg PO HS 03/13/18 03/13/18 History Testosterone Cypionate 200 mg IM Q14D 03/13/18 03/13/18 History [Depo-Testosterone] cloNIDine 0.2 MG/24HR PATCH 1 patch TOPICAL MO 03/13/18 03/13/18 History [Catapres-TTS] Clopidogrel [Plavix] 75 mg PO DAILY tab 03/14/18 Rx Losartan [Cozaar] 50 mg PO DAILY tab 03/14/18 Rx Allergies Allergy/AdvReac Type Severity Reaction Status Date / Time No Known Allergies Allergy Verified 03/13/18 09:33 Physical Exam Vitals: Vital Signs Temp Pulse BP Pulse Ox 04/03/18 08:22 97 F L 62 217/96 97 Intake and Output 04/02/18 04/03/18 04/03/18 22:59 06:59 14:59 Other: Weight 82.1 kg Head normocephalic Neck supple Lungs clear to auscultation bilaterally no wheezing or crackles Heart regular rate and rhythm S1-S2, no rub or gallop Abdomen is soft nontender nondistended positive bowel sounds no hepatosplenomegaly Extremities no edema Neuro alert and orientated to 3 Results Labs: Abnormal Lab Results - Last 24 Hours (Table) 04/03/18 Range/Units 08:28 POC Glucose (mg/dL) 110 H (75-99) mg/dL Assessment and Plan Assessment: 1. Status post arch study with Dr. Aldridge. Discussed case with Dr. Aldridge. No significant blockages seen. Patient to be discharged later today 2. History of essential hypertension 3. History of diabetes mellitus 4. History of CVA. Per Dr. Aldridge okay to resume Plavix today 5. History of GERD 6. History of osteoarthritis Time with Patient: Greater than 30 (Greater than 60% of the total time spent in counseling and coordination of care. I performed an examination of the patient and discussed their management with the Nurse Practitioner. I have reviewed the Nurse Practitioner's notes and agree with the documented findings and plan of care)
[2018-04-03 10:32] VITALS: RESP 18
[2018-04-03 10:48] VITALS: PULSE 54
[2018-04-03 11:05] VITALS: BP 131/70; TEMP 97.9
[2018-04-03 11:17] LABS: Glucose,Whole Blood 107 mg/dL (75-99)
--- NOTE | 2018-04-03 12:14 | P.DS ---
Providers Expected date of discharge: 04/03/18 Attending physician: Boy Aldridge Primary care physician: Kayleen Leticia Layton Hospital Course: Discharge diagnosis 1. Status post arch study with Dr. Aldridge. Discussed case with Dr. Aldridge. No significant blockages seen. Per Dr. Aldridge acute be discharged post completion of recovery protocol. Okay to resume Plavix and aspirin per Dr. Aldridge. Patient to follow-up outpatient 1 week 2. History of essential hypertension 3. History of diabetes mellitus 4. History of CVA. Per Dr. Aldridge okay to resume Plavix today 5. History of GERD 6. History of osteoarthritis Hospital Course This is a 77-year-old male patient of Dr. Putnam. Patient presented for elective arch study Dr. Aldridge. Patient recently admitted for slurred speech and during that stay was found the patient had 60% stenosis of both carotid arteries. Her Dr. Aldridge patient was seen in all that further testing was done which showed concern for increased stenosis. Patient knows past medical history of CVA, diabetes mellitus, GERD, hyperlipidemia, hypertension and osteoarthritis. Discussed case with Dr. Aldridge. Per Dr. Aldridge arch study test showed clear arteries bilaterally. patient to be discharged today after 6 hours of recovery time. At this time patient is resting comfortably in bed. Patient denies chest pain or shortness of breath. Patient denies nausea vomiting or diarrhea. Patinet denies any urinary burning or frequency Patient to be discharged after recovery process for protocol. Discussed with Dr. Aldridge. Okay to resume Plavix and aspirin and to follow-up outpatient in [address] Aldridge. Metformin to be held for 2 days. Patient to follow- up closely with PCP. At this time patient denies chest pain or shortness breath. Patient denies nausea vomiting or diarrhea. Patient denies any urinary burning or frequency. I performed an examination of the patient and discussed their management with the Nurse Practitioner. I have reviewed the Nurse Practitioner's notes and agree with the documented findings and plan of care Patient Condition at Discharge: Stable Plan - Discharge Summary Discharge Rx Participant: No New Discharge Prescriptions: Continue Aspirin EC [Ecotrin Low Dose] 81 mg PO DAILY glipiZIDE XL [Glucotrol XL] 5 mg PO DAILY metFORMIN HCL [Glucophage] 500 mg PO BID Simvastatin [Zocor] 20 mg PO HS cloNIDine 0.2 MG/24HR PATCH [Catapres-TTS] 1 patch TOPICAL MO Diltiazem HCl [Diltiazem 24Hr ER] 240 mg PO DAILY Testosterone Cypionate [Depo-Testosterone] 200 mg IM Q14D Clopidogrel [Plavix] 75 mg PO DAILY tab Losartan [Cozaar] 50 mg PO DAILY tab Discharge Medication List Aspirin EC [Ecotrin Low Dose] 81 mg PO DAILY 01/02/18 [History] glipiZIDE XL [Glucotrol XL] 5 mg PO DAILY 01/02/18 [History] metFORMIN HCL [Glucophage] 500 mg PO BID 01/02/18 [History] Diltiazem HCl [Diltiazem 24Hr ER] 240 mg PO DAILY 03/13/18 [History] Simvastatin [Zocor] 20 mg PO HS 03/13/18 [History] Testosterone Cypionate [Depo-Testosterone] 200 mg IM Q14D 03/13/18 [History] cloNIDine 0.2 MG/24HR PATCH [Catapres-TTS] 1 patch TOPICAL MO 03/13/18 [History] Clopidogrel [Plavix] 75 mg PO DAILY tab 03/14/18 [Rx] Losartan [Cozaar] 50 mg PO DAILY tab 03/14/18 [Rx] Follow up Appointment(s)/Referral(s): Boy Aldridge MD [STAFF PHYSICIAN] - 1 Week Kayleen Kelly MD [Primary Care Provider] - 1 Week Patient Instructions/Handouts: Peripheral Artery Disease (DC) Activity/Diet/Wound Care/Special Instructions: Hold metformin for 2 days resume Thursday 04/05 Diet heart healthy Activity as tolerated Discharge Disposition: HOME SELF-CARE
--- NOTE | 2018-04-03 12:26 | IR ---
Fluoroscopy HISTORY: Carotid stenosis 5.3minutes fluoroscopy time supplied to the referring clinician. 144 intraoperative C-arm images doc ument the procedure. See dictated report from vascular surgery.
--- NOTE | 2018-04-03 12:31 | HP ---
HISTORY AND PHYSICAL Raphael Rhodes is a 77-year-old pleasant gentleman who came to [facility] a week ago with history of slurred speech. The patient had a stroke workup including CTA of the carotid which showed 60% stenosis bilateral. The patient started on antiplatelet therapy and was sent home. I have seen this gentleman in my office and we repeated ultrasound. Ultrasound shows left carotid has some proximally has some occlusive disease more than 60%. The patient is scheduled to have an arch study. No history of any motor deficit. MEDICAL HISTORY: History of diabetes, history of hypertension. PERSONAL HISTORY: ALLERGIES: No known allergies. SURGICAL HISTORY: Patient had a back surgery done in the past. PHYSICAL EXAMINATION: NECK: Supple. Trachea central. CHEST: Clear to auscultation. First and second sounds normal. ABDOMEN: Soft, brachial radial and femoral pulses are present. CENTRAL NERVOUS SYSTEM: Oriented to time and place. Skin intact. Reflexes are normal. IMPRESSION: Bilateral carotid artery stenosis, more on the left than on the right. PLAN: Arch study. Risks and complications discussed. The patient will be seen by Dr. Sagastume for medical management. MMODL / IJN: [id number] /
--- NOTE | 2018-04-03 14:36 | OP ---
OPERATIVE REPORT PREOP DIAGNOSIS: Symptomatic left carotid artery stenosis. PROCEDURE PERFORMED: Arch study and selection of the right and left carotid artery. PROCEDURE: This patient was brought to the solder making laborer. Right groin was prepped and drapes applied in usual sterile manner. 1% lidocaine infiltrated in the groin area. Micropuncture introduced into right common femoral artery. The 5-Gabonese sheath was advanced on the top of the guidewire. Then we flushed with heparin saline and guidewire was passed and we placed a 4-Gabonese sheath on the top of the guidewire. After that, guidewire was parked at the arch of aorta. Then we placed a pigtail catheter on the top of the guidewire and power injector arch study was performed. Arch study was found to be patent. Both common carotid arteries were visualized and both subclavian were visualized. After that, we exchanged for a JB2 catheter. We did the right carotid selection. AP lateral view was obtained. There was no hemodynamic significant stenosis noted in the right internal carotid artery. After that, we selected the left carotid artery and AP and lateral view was obtained. Common carotids were found to be patent. External was patent. Internal carotid was smooth. There was a kink proximally but no hemodynamically significant stenosis noted. Catheter and sheath was removed. The patient was transferred to the recovery room in stable condition. MMODL / IJN: [id number] /
== END 2018-04-03 15:57 | disposition home or self-care (01) ==
LOC: CATHCVL 06:01 → 3SCARD 09:00 → CATHCVL 15:57
PROVIDERS: ATTEND Surgery Vascular Surgery
DX: I65.22 Occlusion and stenosis of left carotid artery (principal); I10 Essential (primary) hypertension; E11.9 Type 2 diabetes mellitus without complications; Z86.73 Personal history of transient ischemic attack (TIA), and cerebral infarction without residual deficits; K21.9 Gastro-esophageal reflux disease without esophagitis; M19.90 Unspecified osteoarthritis, unspecified site; E78.5 Hyperlipidemia, unspecified; E11.51 Type 2 diabetes mellitus with diabetic peripheral angiopathy without gangrene; Z82.3 Family history of stroke; Z79.84 Long term (current) use of oral hypoglycemic drugs; Z79.02 Long term (current) use of antithrombotics/antiplatelets; Z79.82 Long term (current) use of aspirin; Z79.899 Other long term (current) drug therapy; Z87.442 Personal history of urinary calculi; G89.29 Other chronic pain; M54.9 Dorsalgia, unspecified
CPT/HCPCS: 36222; C1769 ×5; C1894; J2001; J3010

== ENCOUNTER 2018-06-12 15:47 | Emergency (ER) | payer MEDICARE ==
--- NOTE | 2018-06-12 16:12 | ED ---
General Adult HPI - General Chief complaint: Shortness of Breath Stated complaint: SILVIA,Dizzy Time Seen by Provider: 06/12/18 15:57 Source: patient Mode of arrival: wheelchair Limitations: no limitations - Related Data Home Medications Medication Instructions Recorded Confirmed Aspirin EC [Ecotrin Low Dose] 81 mg PO DAILY 01/02/18 06/12/18 glipiZIDE XL [Glucotrol XL] 5 mg PO DAILY 01/02/18 06/12/18 metFORMIN HCL [Glucophage] 500 mg PO BID 01/02/18 06/12/18 Simvastatin [Zocor] 20 mg PO HS 03/13/18 06/12/18 Testosterone Cypionate 200 mg IM Q14D 03/13/18 06/12/18 [Depo-Testosterone] cloNIDine 0.2 MG/24HR PATCH 1 patch TOPICAL MO 03/13/18 06/12/18 [Catapres-TTS] Diltiazem HCl [Diltiazem 24Hr ER] 180 mg PO BID 06/12/18 06/12/18 Previous Rx's Medication Instructions Recorded Clopidogrel [Plavix] 75 mg PO DAILY tab 03/14/18 Allergies Allergy/AdvReac Type Severity Reaction Status Date / Time losartan Allergy Swelling Verified 06/12/18 16:15 Review of Systems ROS Statement: Those systems with pertinent positive or pertinent negative responses have been documented in the HPI. ROS Other: All systems not noted in ROS Statement are negative. Past Medical History Past Medical History: CVA/TIA, Diabetes Mellitus, GERD/Reflux, Hyperlipidemia, Hypertension, Osteoarthritis (OA) Additional Past Medical History / Comment(s): Pt recently admitted to [facility] with difficulty speaking-TIA, NIDDM type II, gastric ulcer years ago, passed kidney stone, has gallstones, chronic back pain with herniated discs. History of Any Multi-Drug Resistant Organisms: None Reported Past Surgical History: Back Surgery Additional Past Surgical History / Comment(s): 04/03/18 Arch study, low back surgery, bilateral cataract removal with lens implants, Past Anesthesia/Blood Transfusion Reactions: No Reported Reaction Past Psychological History: No Psychological Hx Reported Smoking Status: Never smoker Past Alcohol Use History: None Reported Past Drug Use History: None Reported - Past Family History Mother Family Medical History: CVA/TIA, Diabetes Mellitus, Myocardial Infarction ([place]) Additional Family Medical History / Comment(s): Mother had a [place] in her 40s. She had a CVA. She lived to be 72 yrs. old. Father Family Medical History: CVA/TIA Additional Family Medical History / Comment(s): Father had a CVA and was an invalid for 15 yrs. General Exam Limitations: no limitations Course Vital Signs 06/12/18 06/12/18 06/12/18 15:51 16:26 17:37 Temperature 98.5 F Pulse Rate 68 62 Respiratory 22 18 18 Rate Blood Pressure 174/72 144/78 O2 Sat by Pulse 97 97 Oximetry Medical Decision Making - Medical Decision Making Dictation was produced using [employer] dictation software. please excuse any grammatical, word or spelling errors. Chief Complaint: 77-year-old male past medical history of CVA, diabetes, dyslipidemia, hypertension presents with dyspnea. History of Present Illness: Patient is 69-year-old male. He states that today he experienced an episode of dyspnea. Patient states he walked to the mailbox walked back and was short of breath. Patient denies having had symptoms like this yesterday or any other recent days. Patient reports that his primary care physician has been reviewed changes to his antihypertensive medications. Patient denies any cough. Denies any constitutional symptoms. Denies any lower extremity edema. Patient denies any chest pain. Denies any lower extremity symptoms. Denies any history of DVT or PE. Denies any cough. He also does report oliguria that has been ongoing for the past several days. The ROS documented in this emergency department record has been reviewed and confirmed by me. Those systems with pertinent positive or negative responses have been documented in the HPI. All other systems are other negative and/or noncontributory. PHYSICAL EXAM: General Impression: Alert and oriented x3, not in acute distress HEENT: Normocephalic atraumatic, extra-ocular movements intact, pupils equal and reactive to light bilaterally, mucous membranes moist. Cardiovascular: Heart regular rate and rhythm, S1&S2 audible, no murmurs, rubs or gallops Chest: Lungs clear to auscultation bilaterally, no rhonchi, no wheeze, no rales Abdomen: Bowel sounds present, abdomen soft, non-tender, non-distended, no organomegaly Musculoskeletal: Pulses present and equal in all extremities, no peripheral edema Motor: Power 5/5 bilaterally, no focal deficits noted Neurological: CN II-XII grossly intact, no focal motor or sensory deficits noted Skin: Intact with no visualized rashes Psych: Normal affect and mood ED course: 77 yo male presents with dyspnea. Signs upon arrival are within acceptable limits.Laboratory evaluation obtained. CBC, metabolic panel was obtained. Patient has slight bump in creatinine. Urinalysis unremarkable. Prematurity peptide is 93. Chest x-ray is unremarkable. No clinical suspicion of pulmonary embolus at this time given that patient is not tachycardic or hypoxic. Furthermore, patient's not have any lower extremity swelling or pain along the deep veins. Patient and laboratory at baseline. Patient is well- appearing. He is advised to follow-up with primary care physician upon discharge. Patient told to return to emergency Department with any worsening symptoms. She is told to maintain adequate hydration. EKG interpretation: Ventricular rate 61, normal sinus rhythm, VA interval 172, care is 86, QTC 46. No VA prolongation, no QTC prolongation, no ST or T-wave changes noted. . Overall, this EKG is unremarkable - Lab Data Result diagrams: 06/12/18 16:22 06/12/18 16:22 Lab Results 06/12/18 06/12/18 06/12/18 Range/Units 16:20 16:22 16:22 WBC 9.4 (3.8-10.6) k/uL RBC 5.42 (4.30-5.90) m/uL Hgb 16.7 (13.0-17.5) gm/dL Hct 50.1 (39.0-53.0) % MCV 92.4 (80.0-100.0) fL MCH 30.8 (25.0-35.0) pg MCHC 33.3 (31.0-37.0) g/dL RDW 14.6 (11.5-15.5) % Plt Count 205 (150-450) k/uL Neutrophils % 66 % Lymphocytes % 23 % Monocytes % 6 % Eosinophils % 2 % Basophils % 0 % Neutrophils # 6.2 (1.3-7.7) k/uL Lymphocytes # 2.2 (1.0-4.8) k/uL Monocytes # 0.6 (0-1.0) k/uL Eosinophils # 0.2 (0-0.7) k/uL Basophils # 0.0 (0-0.2) k/uL Sodium 139 (137-145) mmol/L Potassium 4.4 (3.5-5.1) mmol/L Chloride 106 (98-107) mmol/L Carbon Dioxide 26 (22-30) mmol/L Anion Gap 7 mmol/L BUN 19 (9-20) mg/dL Creatinine 1.27 H (0.66-1.25) mg/dL Est GFR (CKD-EPI)AfAm 62 (>60 ml/min/1.73 sqM) Est GFR (CKD-EPI)NonAf 54 (>60 ml/min/1.73 sqM) Glucose 109 H (74-99) mg/dL Calcium 9.8 (8.4-10.2) mg/dL NT-Pro-B Natriuret Pep pg/mL Urine Color Light Yellow Urine Appearance Clear (Clear) Urine pH 6.5 (5.0-8.0) Ur Specific [place] 1.007 (1.001-1.035) Urine Protein Negative (Negative) Urine Glucose (UA) Negative (Negative) Urine Ketones Negative (Negative) Urine Blood Negative (Negative) Urine Nitrite Negative (Negative) Urine Bilirubin Negative (Negative) Urine Urobilinogen 2.0 (<2.0) mg/dL Ur Leukocyte Esterase Negative (Negative) 06/12/18 Range/Units 16:22 WBC (3.8-10.6) k/uL RBC (4.30-5.90) m/uL Hgb (13.0-17.5) gm/dL Hct (39.0-53.0) % MCV (80.0-100.0) fL MCH (25.0-35.0) pg MCHC (31.0-37.0) g/dL RDW (11.5-15.5) % Plt Count (150-450) k/uL Neutrophils % % Lymphocytes % % Monocytes % % Eosinophils % % Basophils % % Neutrophils # (1.3-7.7) k/uL Lymphocytes # (1.0-4.8) k/uL Monocytes # (0-1.0) k/uL Eosinophils # (0-0.7) k/uL Basophils # (0-0.2) k/uL Sodium (137-145) mmol/L Potassium (3.5-5.1) mmol/L Chloride (98-107) mmol/L Carbon Dioxide (22-30) mmol/L Anion Gap mmol/L BUN (9-20) mg/dL Creatinine (0.66-1.25) mg/dL Est GFR (CKD-EPI)AfAm (>60 ml/min/1.73 sqM) Est GFR (CKD-EPI)NonAf (>60 ml/min/1.73 sqM) Glucose (74-99) mg/dL Calcium (8.4-10.2) mg/dL NT-Pro-B Natriuret Pep 93 pg/mL Urine Color Urine Appearance (Clear) Urine pH (5.0-8.0) Ur Specific [place] (1.001-1.035) Urine Protein (Negative) Urine Glucose (UA) (Negative) Urine Ketones (Negative) Urine Blood (Negative) Urine Nitrite (Negative) Urine Bilirubin (Negative) Urine Urobilinogen (<2.0) mg/dL Ur Leukocyte Esterase (Negative) Disposition Clinical Impression: Dyspnea Disposition: HOME SELF-CARE Condition: Good Instructions (If sedation given, give patient instructions): Dyspnea (ED) Is patient prescribed a controlled substance at d/c from ED?: No Referrals: Rama Putnam MD [Primary Care Provider] - 1-2 days Time of Disposition: 18:27
[2018-06-12 16:44] VITALS: RESP 18
[2018-06-12 16:53] LABS: Calcium 9.8 mg/dL (8.4-10.2); Potassium 4.4 mmol/L (3.5-5.1)
--- NOTE | 2018-06-12 16:57 | XR ---
EXAMINATION TYPE: XR chest 2V DATE OF EXAM: 06/12/2018 COMPARISON: 01/18/2018 HISTORY: Short of breath TECHNIQUE: Frontal and lateral views of the chest are obtained. FINDINGS: There is some mild linear density at the right lung base. The other lung gonzalez are clear. There is no pleural effusion. Heart size is normal. Bony thorax is intact. IMPRESSION: No active cardiopulmonary disease. Mild scarring at the right lung base unchanged. Barbie l heart.
[2018-06-12 17:04] LABS: Appearance,Urine Clear (Clear); Bilirubin,Urine Negative (Negative); Blood,Urine Negative (Negative); Color,Urine Light Yellow; Glucose,Urine (UA) Negative (Negative); Ketones,Urine Negative (Negative); Leukocyte Esterase,Urine Negative (Negative); Nitrite,Urine Negative (Negative); PH, Urine 6.5 (5.0-8.0); Protein,Urine Negative (Negative); Specific Gravity,Urine 1.007 (1.001-1.035)
[2018-06-12 17:05] LABS: Basophils % (A) 0 %; Eosinophils # (A) 0.2 k/uL (0-0.7); Eosinophils % (A) 2 %; HCT 50.1 % (39.0-53.0); HGB 16.7 gm/dL (13.0-17.5); Lymphocytes # (A) 2.2 k/uL (1.0-4.8); Lymphocytes % (A) 23 %; MCH 30.8 pg (25.0-35.0); MCHC 33.3 g/dL (31.0-37.0); MCV 92.4 fL (80.0-100.0); Mean Platelet Volume 6.4; Monocytes # (A) 0.6 k/uL (0-1.0); Monocytes % (A) 6 %; Neutrophils # (A) 6.2 k/uL (1.3-7.7); Neutrophils % (A) 66 %; Platelet Count 205 k/uL (150-450); RBC 5.42 m/uL (4.30-5.90); RDW 14.6 % (11.5-15.5); WBC 9.4 k/uL (3.8-10.6)
[2018-06-12 18:46] VITALS: BP 137/70; PULSE 65; TEMP 98.1
== END 2018-06-12 18:47 | disposition home or self-care (01) ==
LOC: EC 15:47
DX: R06.00 Dyspnea, unspecified (principal); R06.02 Shortness of breath; R79.89 Other specified abnormal findings of blood chemistry; R34 Anuria and oliguria; E78.5 Hyperlipidemia, unspecified; I10 Essential (primary) hypertension; E11.9 Type 2 diabetes mellitus without complications; M19.90 Unspecified osteoarthritis, unspecified site; I69.328 Other speech and language deficits following cerebral infarction; Z88.8 Allergy status to other drugs, medicaments and biological substances; Z79.82 Long term (current) use of aspirin; Z79.84 Long term (current) use of oral hypoglycemic drugs; Z79.890 Hormone replacement therapy; Z79.899 Other long term (current) drug therapy
CPT/HCPCS: 36415; 71046; 80048; 81003; 83880; 85025; 93005; 99285

== ENCOUNTER 2019-01-04 13:56 | Observation (INO) | payer MEDICARE ==
[2019-01-04 14:31] LABS: Glucose,Whole Blood 85 mg/dL (75-99)
[2019-01-04] MEDS ORDERED: SODIUM CHLORIDE 0.9% 1,000 ML IV STA (14:32)
--- NOTE | 2019-01-04 14:37 | ED ---
Neuro HPI - General Chief Complaint: Neuro Symptoms/Deficit Stated Complaint: POSS TIA, SLURRED SPEECH APX 1 HOUR AGO, SOB Time Seen by Provider: 01/04/19 14:12 Source: patient, family, RN notes reviewed, old records reviewed Mode of arrival: ambulatory Limitations: no limitations - History of Present Illness Is the patient presenting with stroke symptoms?: No Last Known Well Time: 12:00 Initial Comments: This is a 78-year-old male with a history of a TIA last March who states around 12 noon today he was on the phone talking when he started developing difficulty with speech/expressive aphasia. He also at that time had a right- sided temporal headache he was moderate in severity sharp in nature he states this is all resolved lasting all about 45 minutes. He denies any fevers chills nausea vomiting sweats trauma or other symptoms he is on Plavix and aspirin. No focal weakness no dizziness no other symptoms - Related Data Home Medications: Home Medications Medication Instructions Recorded Confirmed Aspirin EC [Ecotrin Low Dose] 81 mg PO DAILY 01/02/18 01/04/19 glipiZIDE XL [Glucotrol XL] 5 mg PO DAILY 01/02/18 01/04/19 metFORMIN HCL [Glucophage] 500 mg PO BID 01/02/18 01/04/19 Testosterone Cypionate 200 mg IM Q14D 03/13/18 01/04/19 [Depo-Testosterone] Diltiazem HCl [Diltiazem 24Hr ER] 180 mg PO BID 06/12/18 01/04/19 Albuterol Sulfate [Albuterol 1 puff INHALATION RT-Q4H PRN 01/04/19 01/04/19 Sulfate Hfa] Lisinopril [Zestril] 10 mg PO DAILY 01/04/19 01/04/19 Mometasone/Formoterol [Dulera 200 2 puff INHALATION RT-DAILY 01/04/19 01/04/19 Mcg/5 Mcg Inhaler] Previous Rx's Medication Instructions Recorded Clopidogrel [Plavix] 75 mg PO DAILY tab 03/14/18 Allergies/Adverse Reactions: Allergies Allergy/AdvReac Type Severity Reaction Status Date / Time losartan Allergy Swelling Verified 01/04/19 14:19 Review of Systems ROS Statement: Those systems with pertinent positive or pertinent negative responses have been documented in the HPI. ROS Other: All systems not noted in ROS Statement are negative. General Exam - General Exam Comments Initial Comments: This is a well-developed well-nourished awake alert oriented 3 male Limitations: no limitations General appearance: alert, in no apparent distress Head exam: Present: atraumatic, normocephalic, normal inspection Eye exam: Present: normal appearance, PERRL, EOMI. Absent: scleral icterus, conjunctival injection, periorbital swelling ENT exam: Present: normal exam, mucous membranes moist Neck exam: Present: normal inspection. Absent: tenderness, meningismus, lymphadenopathy Respiratory exam: Present: normal lung sounds bilaterally. Absent: respiratory distress, wheezes, rales, rhonchi, stridor Cardiovascular Exam: Present: normal rhythm, bradycardia, normal heart sounds. Absent: systolic murmur, diastolic murmur, rubs, gallop, clicks GI/Abdominal exam: Present: soft, normal bowel sounds. Absent: distended, tenderness, guarding, rebound, rigid Extremities exam: Present: normal inspection, full ROM, normal capillary refill. Absent: tenderness, pedal edema, joint swelling, calf tenderness Back exam: Present: normal inspection Neurological exam: Present: alert, oriented X3, CN II-XII intact Psychiatric exam: Present: normal affect, normal mood Skin exam: Present: warm, dry, intact, normal color. Absent: rash Stroke MDM - Lab Data Result diagrams: 01/04/19 14:13 01/04/19 14:13 Lab Results 01/04/19 01/04/19 01/04/19 Range/Units 14:13 14:13 14:13 WBC 11.3 H (3.8-10.6) k/uL RBC 6.16 H (4.30-5.90) m/uL Hgb 18.9 H (13.0-17.5) gm/dL Hct 55.8 H (39.0-53.0) % MCV 90.6 (80.0-100.0) fL MCH 30.6 (25.0-35.0) pg MCHC 33.8 (31.0-37.0) g/dL RDW 15.8 H (11.5-15.5) % Plt Count 248 (150-450) k/uL Neutrophils % 72 % Lymphocytes % 20 % Monocytes % 5 % Eosinophils % 1 % Basophils % 0 % Neutrophils # 8.1 H (1.3-7.7) k/uL Lymphocytes # 2.3 (1.0-4.8) k/uL Monocytes # 0.6 (0-1.0) k/uL Eosinophils # 0.1 (0-0.7) k/uL Basophils # 0.1 (0-0.2) k/uL PT 9.9 (9.0-12.0) sec INR 0.9 (<1.2) APTT 25.7 (22.0-30.0) sec Sodium 139 (137-145) mmol/L Potassium 4.4 (3.5-5.1) mmol/L Chloride 103 (98-107) mmol/L Carbon Dioxide 22 (22-30) mmol/L Anion Gap 14 mmol/L BUN 26 H (9-20) mg/dL Creatinine 1.74 H (0.66-1.25) mg/dL Est GFR (CKD-EPI)AfAm 42 (>60 ml/min/1.73 sqM) Est GFR (CKD-EPI)NonAf 37 (>60 ml/min/1.73 sqM) Glucose 79 (74-99) mg/dL POC Glucose (mg/dL) (75-99) mg/dL POC Glu Car Repairer ID Calcium 10.8 H (8.4-10.2) mg/dL Total Bilirubin 0.7 (0.2-1.3) mg/dL AST 23 (17-59) U/L ALT 26 (21-72) U/L Alkaline Phosphatase 80 (38-126) U/L Creatine Kinase 164 (55-170) U/L Troponin I (0.000-0.034) ng/mL Total Protein 7.6 (6.3-8.2) g/dL Albumin 4.7 (3.5-5.0) g/dL 01/04/19 01/04/19 Range/Units 14:13 14:29 WBC (3.8-10.6) k/uL RBC (4.30-5.90) m/uL Hgb (13.0-17.5) gm/dL Hct (39.0-53.0) % MCV (80.0-100.0) fL MCH (25.0-35.0) pg MCHC (31.0-37.0) g/dL RDW (11.5-15.5) % Plt Count (150-450) k/uL Neutrophils % % Lymphocytes % % Monocytes % % Eosinophils % % Basophils % % Neutrophils # (1.3-7.7) k/uL Lymphocytes # (1.0-4.8) k/uL Monocytes # (0-1.0) k/uL Eosinophils # (0-0.7) k/uL Basophils # (0-0.2) k/uL PT (9.0-12.0) sec INR (<1.2) APTT (22.0-30.0) sec Sodium (137-145) mmol/L Potassium (3.5-5.1) mmol/L Chloride (98-107) mmol/L Carbon Dioxide (22-30) mmol/L Anion Gap mmol/L BUN (9-20) mg/dL Creatinine (0.66-1.25) mg/dL Est GFR (CKD-EPI)AfAm (>60 ml/min/1.73 sqM) Est GFR (CKD-EPI)NonAf (>60 ml/min/1.73 sqM) Glucose (74-99) mg/dL POC Glucose (mg/dL) 85 (75-99) mg/dL POC Glu Car Repairer ID Tania Anderson Calcium (8.4-10.2) mg/dL Total Bilirubin (0.2-1.3) mg/dL AST (17-59) U/L ALT (21-72) U/L Alkaline Phosphatase (38-126) U/L Creatine Kinase (55-170) U/L Troponin I <0.012 (0.000-0.034) ng/mL Total Protein (6.3-8.2) g/dL Albumin (3.5-5.0) g/dL - NIH Stroke Scale 1a. Level of Consciousness: (0) alert 1b. LOC Questions: (0) answers correctly 1c. LOC Commands: (0) performs tasks correctly 2. Best Gaze: (0) normal 3. Visual: (0) no visual loss 4. Facial Palsy: (0) normal symmetrical movement 5a. Motor Arm Left: (0) no drift 5b. Motor Arm Right: (0) no drift 6a. Motor Leg Left: (0) no drift 6b. Motor Leg Right: (0) no drift 7. Limb Ataxia: (0) absent 8. Sensory: (0) normal 9. Best Language: (0) no aphasia 10. Dysarthria: (0) normal 11. Extinction/Inattention: (0) no abnormality - Medical Decision Making Patient did present with complaints of expressive aphasia which lasted approximate 45 minutes. This is since resolved patient was evaluated in the emergency department for the same. No further symptoms. Imaging studies are negative. Patient does double evidence of dehydration with hemoconcentration and elevated creatinine. Patient will be admitted for IV hydration and evaluation by neurology. I did discuss the case with Dr. Kelly - Radiology Data Radiology results: report reviewed, image reviewed (I did review the imaging and reports no acute findings.) - EKG Data -: EKG Interpreted by Me EKG shows normal: sinus rhythm (Sinus rhythm bradycardia rate of 57 NM interval 158 QRS duration 96 QT since QTC 402/391 left exodeviation) Past Medical History Past Medical History: CVA/TIA, Diabetes Mellitus, GERD/Reflux, Hyperlipidemia, Hypertension, Osteoarthritis (OA) Additional Past Medical History / Comment(s): Pt recently admitted to [facility] 03/13/18 with difficulty speaking-TIA, NIDDM type II, gastric ulcer years ago, p assed kidney stone, has gallstones, chronic back pain with herniated discs. History of Any Multi-Drug Resistant Organisms: None Reported Past Surgical History: Back Surgery Additional Past Surgical History / Comment(s): 04/03/18 Arch study, low back surgery, bilateral cataract removal with lens implants, Past Anesthesia/Blood Transfusion Reactions: No Reported Reaction Past Psychological History: No Psychological Hx Reported Smoking Status: Never smoker Past Alcohol Use History: None Reported Past Drug Use History: None Reported - Past Family History Mother Family Medical History: CVA/TIA, Diabetes Mellitus, Myocardial Infarction ([place]) Additional Family Medical History / Comment(s): Mother had a [place] in her 40s. She had a CVA. She lived to be 72 yrs. old. Father Family Medical History: CVA/TIA Additional Family Medical History / Comment(s): Father had a CVA and was an invalid for 15 yrs. Course Vital Signs 01/04/19 01/04/19 01/04/19 14:05 14:15 14:30 Temperature 97.9 F 98.0 F 98.0 F Pulse Rate 58 L 58 L 58 L Respiratory 18 17 17 Rate Blood Pressure 118/68 130/76 131/69 O2 Sat by Pulse 97 95 94 L Oximetry 01/04/19 01/04/19 15:00 15:53 Temperature 98.2 F Pulse Rate 59 L 60 Respiratory 18 17 Rate Blood Pressure 133/68 143/76 O2 Sat by Pulse 97 96 Oximetry - Reevaluation(s) Reevaluation #1: 01/04/19 16:11 Reevaluation patient reveals no further incident or deficits. Disposition Clinical Impression: Transient cerebral ischemia, Dehydration, Renal insufficiency syndrome Disposition: ADMITTED IP TO THIS [facility] Condition: Fair Referrals: Rama Putnam MD [Primary Care Provider] - 1-2 days
[2019-01-04 15:02] LABS: Basophils # (A) 0.1 k/uL (0-0.2); Basophils % (A) 0 %; Eosinophils # (A) 0.1 k/uL (0-0.7); Eosinophils % (A) 1 %; HCT 55.8 % (39.0-53.0); HGB 18.9 gm/dL (13.0-17.5); Lymphocytes # (A) 2.3 k/uL (1.0-4.8); Lymphocytes % (A) 20 %; MCH 30.6 pg (25.0-35.0); MCHC 33.8 g/dL (31.0-37.0); MCV 90.6 fL (80.0-100.0); Monocytes # (A) 0.6 k/uL (0-1.0); Monocytes % (A) 5 %; Neutrophils # (A) 8.1 k/uL (1.3-7.7); Neutrophils % (A) 72 %; Platelet Count 248 k/uL (150-450); RBC 6.16 m/uL (4.30-5.90); RDW 15.8 % (11.5-15.5); WBC 11.3 k/uL (3.8-10.6)
[2019-01-04 15:03] LABS: Albumin 4.7 g/dL (3.5-5.0); Calcium 10.8 mg/dL (8.4-10.2); Potassium 4.4 mmol/L (3.5-5.1); Total Bilirubin 0.7 mg/dL (0.2-1.3); Total Protein 7.6 g/dL (6.3-8.2)
[2019-01-04 15:29] LABS: INR 0.9 (<1.2); Partial Thromboplastin Time 25.7 sec (22.0-30.0); Prothrombin Time 9.9 sec (9.0-12.0)
--- NOTE | 2019-01-04 15:38 | CT ---
EXAMINATION TYPE: CT brain wo con DATE OF EXAM: 01/04/2019 COMPARISON: 03/13/2018 INDICATION: Dizziness and weakness, neural deficits DLP: 1062.4 mGycm, Automated exposure control for dose reduction was used. CONTRAST: None CT of the brain is performed utilizing 3 mm thick sections through the posterior fossa and 3 mm thick sections through the remaining calvarium. Study is performed within 24 hours of arrival to the hosp ital. No abnormal hyperdensity is present to suggest an acute intracranial hemorrhage. No mass lesion is evident. No acute infarcts are evident. Ventricles and sulci are appropriate for the patient age. Paranasal sinuses and mastoid air cells within the nriaa-sy-opcm are clear. IMPRESSIONS: 1. No acute intracranial process.
--- NOTE | 2019-01-04 15:48 | XR ---
EXAMINATION TYPE: XR chest 2V DATE OF EXAM: 01/04/2019 COMPARISON: 06/12/2018 HISTORY: Altered mental status TECHNIQUE: Frontal and lateral views of the chest are obtained. FINDINGS: Cardia mediastinal silhouette is upper limits of normal. Pulmonary hyperinflation with fla ttening the diaphragms represents underlying COPD. Moderate degenerative change cervical spine. No fo jacinta consolidation, pleural effusion or pneumothorax. Chronic pleural-parenchymal scarring at the cost ophrenic angles. IMPRESSION: Chronic changes with underlying COPD. No acute cardiopulmonary process.
[2019-01-04] MEDS ORDERED: ALBUTEROL NEBULIZED 2.5 MG/3 ML INHALATION PRN (16:18)
[2019-01-04 19:29] LABS: Glucose,Whole Blood 179 mg/dL (75-99)
[2019-01-04] MEDS: INSULIN ASPART (NovoLOG) 100 UNIT/ML VIAL SQ SCH ×2 (19:34→21:39)
[2019-01-04] MEDS: metFORMIN 500 MG TAB PO SCH (19:35)
[2019-01-04] MEDS: DILTIAZEM CD 180 MG CAP.ER.24H PO SCH (20:49)
[2019-01-04 21:32] LABS: Glucose,Whole Blood 157 mg/dL (75-99)
[2019-01-05 00:14] VITALS: BMI 27.2
[2019-01-05 03:43] LABS: Cholesterol 207 mg/dL (<200); HDL Cholesterol 44 mg/dL (40-60); LDL Cholesterol,Calculated 116 mg/dL (0-99); Triglycerides 236 mg/dL (<150)
[2019-01-05 06:46] LABS: Glucose,Whole Blood 95 mg/dL (75-99)
[2019-01-05] MEDS: INSULIN ASPART (NovoLOG) 100 UNIT/ML VIAL SQ SCH ×4 (07:00→20:57)
[2019-01-05] MEDS: metFORMIN 500 MG TAB PO SCH ×2 (07:00→18:15)
[2019-01-05 07:47] LABS: Calcium 9.6 mg/dL (8.4-10.2); Potassium 4.6 mmol/L (3.5-5.1)
[2019-01-05] MEDS: SYMBICORT 160-4.5 MCG INHALER INHALATION SCH ×2 (08:05→19:47)
[2019-01-05 08:30] LABS: Basophils % (A) 0 %; Eosinophils # (A) 0.1 k/uL (0-0.7); Eosinophils % (A) 1 %; HCT 51.5 % (39.0-53.0); HGB 17.2 gm/dL (13.0-17.5); Lymphocytes # (A) 1.7 k/uL (1.0-4.8); Lymphocytes % (A) 20 %; MCH 30.6 pg (25.0-35.0); MCHC 33.5 g/dL (31.0-37.0); MCV 91.3 fL (80.0-100.0); Mean Platelet Volume 7.1; Monocytes # (A) 0.5 k/uL (0-1.0); Monocytes % (A) 6 %; Neutrophils # (A) 5.9 k/uL (1.3-7.7); Neutrophils % (A) 70 %; Platelet Count 228 k/uL (150-450); RBC 5.64 m/uL (4.30-5.90); RDW 15.9 % (11.5-15.5); WBC 8.4 k/uL (3.8-10.6)
[2019-01-05] MEDS ORDERED: ASPIRIN 81 MG PO SCH (09:00)
--- NOTE | 2019-01-05 09:05 | US ---
EXAMINATION TYPE: US carotid duplex BILAT DATE OF EXAM: 01/05/2019 COMPARISON: NONE CLINICAL HISTORY: TIA. TIA, dehydrated EXAM MEASUREMENTS: RIGHT: Peak Systolic Velocity (PSV) cm/sec ----- Right CCA: 73.8 ----- Right ICA: 86.4 ----- Right ECA: 138.3 ICA/CCA ratio: 1.2 RIGHT: End Diastole cm/sec ----- Right CCA: 11.2 ----- Right ICA: 21.5 ----- Right ECA: 7.4 LEFT: Peak Systolic Velocity (PSV) cm/sec ----- Left CCA: 98.1 ----- Left ICA: 97.0 ----- Left ECA: 90.1 ICA/CCA ratio: 1.0 LEFT: End Diastole cm/sec ----- Left CCA: 15.6 ----- Left ICA: 19.0 ----- Left ECA: 6.4 VERTEBRALS (direction of flow): Right Vertebral: Antegrade Left Vertebral: Antegrade Rhythm: Normal Heterogeneous plaque at bilateral ICA's with no significant stenosis seen. IMPRESSION: Mild degree of grayscale atheromatous plaquing with no sonographically evident hemodynam ically significant stenosis within either visualized carotid arterial system. Criteria for Assigning % of Stenosis / Diameter reduction (Estimation based on the indirect measurements of the internal carotid artery velocities (ICA PSV). 1. Normal (no stenosis)=ICA PSV < 125 cm/s: ratio < 2.0: ICA EDV<40 cm/s. 2. Less than 50% stenosis=ICA PSV < 125 cm/s: ratio < 2.0: ICA EDV<40 cm/s. 3. 50 to 69% stenosis=ICA PSV of 125 to 230 cm/s: ration 2.0 ? 4.0: ICA EDV 40-100 cm/s. 4. Greater than 70% stenosis to near occlusion= ICA PSV > 230 cm/s: ratio > 4.0: ICA EDV > 100 cm/s. 5. Near occlusion= ICA PSV velocities may be low or undetectable: variable ratio and ICA EDV. 6. Total occlusion=unable to detect flow.
--- NOTE | 2019-01-05 09:51 | P.CNNES ---
History of Present Illness Consult date: 01/05/19 Requesting physician: Kallie Zapien Reason for Consult: TIA Chief complaint: Right sided headache and couldn't speak for an hour History of Present Illness: This is a 78 RH male whose vascular risk factors include advanced age, HTN, DM and HL. Yesterday he was helping his neighbor lift a board that was not heavy when he suddenly developed a right-sided headache and inability to speak for ar ound an hour. By the time he presented to the ER, his neuro sx had almost completely resolved. Patient states that he had a nearly identical presentation back in 03/2018. He was hospitalized at this facility and was seen by neurology who noted he had garbled speech while talking to his for 2 hours. His vascular work-up at the time showed BICA short segment stenosis at approximately 60%. He was started on DAPT with aspirin and clopidogrel. He was seen by vascular surgery who recommended DAPT/medical management. He did not have an MRI Brain at the time. Patient states he remains compliant with all his meds including his antiplatelets. In fact, he is supposed to go for a lumbar injection next week and would need to be off clopidogrel for a week. He asks if he can safely do so. He is scheduled for an MRI L-spine later this week. Review of Systems 14-point ROS performed and as per HPI. Neurologically, patient denies decreased level or loss of consciousness, seizure, changes in vision, diplopia, amaurosis, changes in hearing, facial droop, ptosis, vertigo, hearing loss, tinnitus, dysarthria, dysphagia, other focal numbness/weakness not mentioned above, tr emors, bowel/bladder incontinence or ataxia. Past Medical History Past Medical History: Asthma, CVA/TIA, Diabetes Mellitus, GERD/Reflux, Hyperlipidemia, Hypertension, Osteoarthritis (OA) Additional Past Medical History / Comment(s): Pt recently admitted to [facility] 03/13/18 with difficulty speaking-TIA, NIDDM type II, gastric ulcer years ago, passed kidney stone, has gallstones, chronic back pain with herniated discs, History of Any Multi-Drug Resistant Organisms: None Reported Past Surgical History: Back Surgery Additional Past Surgical History / Comment(s): 04/03/18 Arch study, low back surgery, bilateral cataract removal with lens implants, Past Anesthesia/Blood Transfusion Reactions: No Reported Reaction Past Psychological History: No Psychological Hx Reported Additional Psychological History / Comment(s): Pt resides with his spouse of 50 yrs. He uses no assistive device. He drives. 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 She had a CVA. She lived to be 72 yrs. old. Father Family Medical History: CVA/TIA Additional Family Medical History / Comment(s): Father had a CVA and was an invalid for 15 yrs. Medications and Allergies Home Medications Medication Instructions Recorded Confirmed Type Aspirin EC [Ecotrin Low Dose] 81 mg PO DAILY 01/02/18 01/04/19 History glipiZIDE XL [Glucotrol XL] 5 mg PO DAILY 01/02/18 01/04/19 History metFORMIN HCL [Glucophage] 500 mg PO BID 01/02/18 01/04/19 History Testosterone Cypionate 200 mg IM Q14D 03/13/18 01/04/19 History [Depo-Testosterone] Clopidogrel [Plavix] 75 mg PO DAILY tab 03/14/18 01/04/19 Rx Diltiazem HCl [Diltiazem 24Hr ER] 180 mg PO BID 06/12/18 01/04/19 History Albuterol Sulfate [Albuterol 1 puff INHALATION RT-Q4H PRN 01/04/19 01/04/19 History Sulfate Hfa] Lisinopril [Zestril] 10 mg PO DAILY 01/04/19 01/04/19 History Mometasone/Formoterol [Dulera 200 2 puff INHALATION RT-DAILY 01/04/19 01/04/19 History Mcg/5 Mcg Inhaler] Allergies Allergy/AdvReac Type Severity Reaction Status Date / Time losartan Allergy Swelling Verified 01/04/19 14:19 Physical Examination - Vital Signs Vital Signs: Vital Signs Temp Pulse Pulse Resp BP BP Pulse Ox 01/05/19 04:10 97.4 F L 70 16 170/87 97 01/04/19 23:20 73 18 01/04/19 23:10 97.7 F 73 18 171/88 96 01/04/19 23:00 69 18 135/90 98 01/04/19 21:25 73 18 136/82 95 01/04/19 20:48 73 18 182/88 96 01/04/19 19:36 18 01/04/19 18:30 74 17 149/73 95 01/04/19 18:00 70 17 161/83 93 L 01/04/19 17:30 69 18 162/122 96 01/04/19 17:00 71 16 142/82 97 01/04/19 16:30 60 17 139/75 95 01/04/19 16:14 98.2 F 62 18 143/76 96 01/04/19 15:53 98.2 F 60 17 143/76 96 01/04/19 15:30 17 133/68 01/04/19 15:00 57 L 18 131/69 94 L 01/04/19 14:30 98.0 F 58 L 17 130/76 94 L 01/04/19 14:21 58 L 94 L 01/04/19 14:15 98.0 F 58 L 17 130/76 95 01/04/19 14:05 97.9 F 58 L 18 118/68 97 Intake and Output 01/04/19 01/05/19 01/05/19 22:59 06:59 14:59 Intake Total 540 240 Balance 540 240 Intake: Intake, IV Titration 300 Amount Sodium Chloride 0.9% 1, 300 000 ml @ 100 mls/hr IV . Q10H STA Rx#:[id number] Oral 240 240 Other: Voiding Method Toilet # Voids 3 Weight 82.6 kg Gen NAD Pleasant and cooperative HEENT NCAT Sclera without icterus O/P clear Neck Supple No carotid bruit Cor RRR no m/r/g Lungs CTAB Abd Soft NTND +BS Ext Warm to touch No edema Neuro MS A+Ox4 Normal fluency Able to follow all commands CN PERRL VFF no APD EOMI no nystagmus or KRYSTYNA No facial asymmetry Masseter's symmetric Hearing intact to normal voice bilaterally Speech not dysarthric Equal elevation of palate Tongue midline Sym shrug and SCM bilaterally Motor Normal bulk/tone No pronator or leg drift No tremors Strength 5/5 sym throughout Sens Intact to LT x4 No neglect or extinction Coord No dysmetria on FTN bilaterally DTRs 2+/4 sym throughout Toes downgoing bilaterally No clonus at achilles Gait Deferred NIHSS 0 Results - Laboratory Findings CBC and BMP: 01/05/19 07:00 01/05/19 07:00 Abnormal Lab Findings: Abnormal Labs 01/04/19 01/04/19 01/04/19 14:13 14:13 14:13 WBC 11.3 H RBC 6.16 H Hgb 18.9 H Hct 55.8 H RDW 15.8 H Neutrophils # 8.1 H BUN 26 H Creatinine 1.74 H Glucose POC Glucose (mg/dL) Calcium 10.8 H Triglycerides 236 H Cholesterol 207 H LDL Cholesterol, Calc 116 H 01/04/19 01/04/19 01/05/19 19:27 21:30 07:00 WBC RBC Hgb Hct RDW Neutrophils # BUN Creatinine 1.34 H Glucose 101 H POC Glucose (mg/dL) 179 H 157 H Calcium Triglycerides Cholesterol LDL Cholesterol, Calc 01/05/19 07:00 WBC RBC Hgb Hct RDW 15.9 H Neutrophils # BUN Creatinine Glucose POC Glucose (mg/dL) Calcium Triglycerides Cholesterol LDL Cholesterol, Calc - Diagnostic Findings Additional findings: CTA Head/Neck 03/13/18. No LVO. BICA 60% short segment stenosis distal to the carotid bulbs. Carotid duplex 01/05/19. Mild degree of atheromatous plaquing with no hemodynamically significant stenosis in the anterior circulation. Bilateral vertebral arteries demonstrate antegrade flow. CT Head wo cont 01/04/19. No ICH. Nil acute. I have reviewed neuroimages myself. Assessment and Plan Assessment: Recurrent language disturbance nearly maxed on medical management- need further neuro work-up including more detailed neuroimaging and EEG to r/o ictal headache/aphasia Plan: -MRI Brain wo alexy -EEG -Carotid duplex from today and CTA Head/Neck from 03/13/2018 reviewed -TTE pending -DAPT. I cannot answer whether he can go off of clopidogrel in the near future for his lumbar procedure until I have further objective info from his neuro work-up -May treat BP to normotensive range but avoid hypotension -LDL 116 goal <70. Increase atorvastatin to 40mg po qhs -PT/OT/SP per protocol -Stroke education given to patient -DVT prophylaxis -d/w patient in detail. All questions answered. Thank you for this consultation. Please call with ?. Time with Patient: Greater than 30 (Time spent in direct patient care, greater than 50% of which was spent in [id number] counseling and coordination of care: 70 minutes)
--- NOTE | 2019-01-05 09:59 | P.CRDCN ---
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 According to the patient, according to the patient, he was speaking on the phone, or getting ready to make a phone call, when he was unable to get his words out, when the words didn't come out a very very garbled. Also at that time patient states that he had a headache somewhat sharp in nature. The symptoms in total lasted approximately 45 minutes, and by the time he reached the emergency room he states that he was back to his normal self. CAT scan of the brain on arrival did not reveal any acute intracranial process. Chest x-ray revealed chronic changes with underlying COPD, no acute process noted. EKG shows a sinus bradycardia with left axis deviation, no acute changes noted. Carotid Doppler study revealed a mild degree of mansfield scale atheromatous plaquing with no hemodynamically significant stenosis. Blood pressure on arrival here 118/60 with a heart rate in the 50s, 97% on room air. Blood pressure this morning 170/87 with a heart rate in the 70s, 97% on room air. White blood cell count on admission 11.3, hemoglobin 18.9, platelet count 248. Sodium 139, potassium 4.3, BUN 26 and creatinine 1.7, troponin 0.012, cholesterol 207, triglycerides 236. LDL 116 and HDL 44. Sodium this morning 139, potassium 4.6, BUN 20 and creatinine 1.3. The patient states he had taken Zocor in the past and developed some muscle aching, this was subsequently discontinued and patient had not been started on any other drug for his cholesterol. We will start the patient on Crestor today. His most recent echocardiogram with Doppler study was performed in March 2018, revealed an ejection fraction of 55-60%. At the time of my examination this morning, patient feels well, denies any difficulty in speaking this morning, denies headache. Past Medical History Past Medical History: Asthma, CVA/TIA, Diabetes Mellitus, GERD/Reflux, Hyperlipidemia, Hypertension, Osteoarthritis (OA) Additional Past Medical History / Comment(s): [facility] with difficulty speaking-TIA, NIDDM type II, gastric ulcer years ago, passed kidney stone, has gallstones, chronic back pain with herniated discs, History of Any Multi-Drug Resistant Organisms: None Reported Past Surgical History: Back Surgery Additional Past Surgical History / Comment(s): 04/03/18 Arch study, low back surgery, bilateral cataract removal with lens implants, Past Anesthesia/Blood Transfusion Reactions: No Reported Reaction Past Psychological History: No Psychological Hx Reported Additional Psychological History / Comment(s): Pt resides with his spouse of 50 yrs. He uses no assistive device. He drives. 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 She had a CVA. She lived to be 72 yrs. old. Father Family Medical History: CVA/TIA Additional Family Medical History / Comment(s): Father had a CVA and was an invalid for 15 yrs. Medications and Allergies Home Medications Medication Instructions Recorded Confirmed Type Aspirin EC [Ecotrin Low Dose] 81 mg PO DAILY 01/02/18 01/04/19 History glipiZIDE XL [Glucotrol XL] 5 mg PO DAILY 01/02/18 01/04/19 History metFORMIN HCL [Glucophage] 500 mg PO BID 01/02/18 01/04/19 History Testosterone Cypionate 200 mg IM Q14D 03/13/18 01/04/19 History [Depo-Testosterone] Clopidogrel [Plavix] 75 mg PO DAILY tab 03/14/18 01/04/19 Rx Diltiazem HCl [Diltiazem 24Hr ER] 180 mg PO BID 06/12/18 01/04/19 History Albuterol Sulfate [Albuterol 1 puff INHALATION RT-Q4H PRN 01/04/19 01/04/19 History Sulfate Hfa] Lisinopril [Zestril] 10 mg PO DAILY 01/04/19 01/04/19 History Mometasone/Formoterol [Dulera 200 2 puff INHALATION RT-DAILY 01/04/19 01/04/19 History Mcg/5 Mcg Inhaler] Allergies Allergy/AdvReac Type Severity Reaction Status Date / Time losartan Allergy Swelling Verified 01/04/19 14:19 Physical Exam Vitals: Vital Signs Temp Pulse Pulse Resp BP BP Pulse Ox 01/05/19 04:10 97.4 F L 70 16 170/87 97 01/04/19 23:20 73 18 01/04/19 23:10 97.7 F 73 18 171/88 96 01/04/19 23:00 69 18 135/90 98 01/04/19 21:25 73 18 136/82 95 01/04/19 20:48 73 18 182/88 96 01/04/19 19:36 18 01/04/19 18:30 74 17 149/73 95 01/04/19 18:00 70 17 161/83 93 L 01/04/19 17:30 69 18 162/122 96 01/04/19 17:00 71 16 142/82 97 01/04/19 16:30 60 17 139/75 95 01/04/19 16:14 98.2 F 62 18 143/76 96 01/04/19 15:53 98.2 F 60 17 143/76 96 01/04/19 15:30 17 133/68 01/04/19 15:00 57 L 18 131/69 94 L 01/04/19 14:30 98.0 F 58 L 17 130/76 94 L 01/04/19 14:21 58 L 94 L 01/04/19 14:15 98.0 F 58 L 17 130/76 95 01/04/19 14:05 97.9 F 58 L 18 118/68 97 Intake and Output 01/04/19 01/05/19 01/05/19 22:59 06:59 14:59 Intake Total 540 240 Balance 540 240 Intake: Intake, IV Titration 300 Amount Sodium Chloride 0.9% 1, 300 000 ml @ 100 mls/hr IV . Q10H STA Rx#:[id number] Oral 240 240 Other: Voiding Method Toilet # Voids 3 Weight 82.6 kg PHYSICAL EXAMINATION: GENERAL: 78-year-old gentleman in no acute distress at the time of my examination HEENT: Head is atraumatic, normocephalic. Pupils equal, round. Sclera anicteric. Conjunctiva are clear. Mucous membranes of the mouth are moist. Neck is supple. There is no elevated jugular venous pressure. No carotid brui t is heard. HEART EXAMINATION: Heart S1, S2 normal. No murmur or gallop heard. CHEST EXAMINATION: Lungs are clear to auscultation and precussion. No chest wall tenderness is noted on palpation or with deep breathing. ABDOMEN: Soft, nontender. Bowel sounds are heard. No organomegaly noted. EXTREMITIES: 2+ peripheral pulses with no evidence of peripheral edema and no calf tenderness noted. NEUROLOGIC patient is awake, alert and oriented 3 . . Results 01/05/19 07:00 01/05/19 07:00 Cardiac Enzymes 01/04/19 01/04/19 Range/Units 14:13 14:13 AST 23 (17-59) U/L Troponin I <0.012 (0.000-0.034) ng/mL Coagulation 01/04/19 Range/Units 14:13 PT 9.9 (9.0-12.0) sec APTT 25.7 (22.0-30.0) sec Lipids 01/04/19 Range/Units 14:13 Triglycerides 236 H (<150) mg/dL Cholesterol 207 H (<200) mg/dL HDL Cholesterol 44 (40-60) mg/dL CBC 01/04/19 01/05/19 Range/Units 14:13 07:00 WBC 11.3 H 8.4 (3.8-10.6) k/uL RBC 6.16 H 5.64 (4.30-5.90) m/uL Hgb 18.9 H 17.2 (13.0-17.5) gm/dL Hct 55.8 H 51.5 (39.0-53.0) % Plt Count 248 228 (150-450) k/uL Comprehensive Metabolic Panel 01/04/19 01/05/19 Range/Units 14:13 07:00 Sodium 139 139 (137-145) mmol/L Potassium 4.4 4.6 (3.5-5.1) mmol/L Chloride 103 107 (98-107) mmol/L Carbon Dioxide 22 25 (22-30) mmol/L BUN 26 H 20 (9-20) mg/dL Creatinine 1.74 H 1.34 H (0.66-1.25) mg/dL Glucose 79 101 H (74-99) mg/dL Calcium 10.8 H 9.6 (8.4-10.2) mg/dL AST 23 (17-59) U/L ALT 26 (21-72) U/L Alkaline Phosphatase 80 (38-126) U/L Total Protein 7.6 (6.3-8.2) g/dL Albumin 4.7 (3.5-5.0) g/dL Current Medications Generic Name Dose Route Start Last Admin Trade Name Freq PRN Reason Stop Dose Admin Albuterol Sulfate 2.5 mg 01/04/19 16:18 Ventolin Nebulized INHALATION RT-Q4H PRN Shortness Of Breath Aspirin 81 mg 01/05/19 09:00 Aspirin PO DAILY [facility] Atorvastatin Calcium 10 mg 01/05/19 21:00 Lipitor PO HS [facility] Budesonide/Formoterol Fumarate 2 puff 01/05/19 08:00 01/05/19 08:05 Symbicort 160-4.5 Mcg Inhaler INHALATION 2 puff RT-BID FRANKY Administration Clopidogrel Bisulfate 75 mg 01/05/19 09:00 Plavix PO DAILY [facility] Diltiazem HCl 180 mg 01/04/19 21:00 01/04/19 20:49 Cardizem Cd PO 180 mg BID FRANKY Administration Glipizide 2.5 mg 01/05/19 09:00 Glucotrol PO BID [facility] Insulin Aspart 0 unit 01/04/19 17:30 01/05/19 07:00 Novolog SQ Not Given ACHS [facility] Protocol Lisinopril 10 mg 01/05/19 09:00 Zestril PO DAILY [facility] Metformin HCl 500 mg 01/04/19 17:30 01/05/19 07:00 Glucophage PO Not Given AC-BID FRANKY Intake and Output 01/04/19 01/05/19 01/05/19 22:59 06:59 14:59 Intake Total 540 240 Balance 540 240 Intake: Intake, IV Titration 300 Amount Sodium Chloride 0.9% 1, 300 000 ml @ 100 mls/hr IV . Q10H STA Rx#:[id number] Oral 240 240 Other: Voiding Method Toilet # Voids 3 Weight 82.6 kg 01/05/19 07:00 01/05/19 07:00 EKG Interpretations (text) EKG shows a sinus bradycardia with left axis deviation, no acute changes noted. Assessment and Plan Plan: Assessment and plan #1 symptoms of expressive aphasia with garbled speech, lasting 45 minutes in duration, suggestive of TIA #2 history of prior TIA in March 2018 #3 hypertension #4 hyperlipidemia, patient had been on Zocor in the past, developed muscle problems and was taken off of that. #5 diabetes Plan We will obtain an echocardiogram with Doppler study. Continue aspirin, Plavix, lisinopril, start the patient on Crestor. Discontinue the Cardizem and start the patient on Norvasc for more optimal blood pressure control. Further recommendations to follow. DNP note has been reviewed, I agree with a documented findings and plan of care. Patient was seen and examined.
[2019-01-05] MEDS ORDERED: ATORVASTATIN 20 MG TAB PO SCH ×2 (10:00→21:00)
--- NOTE | 2019-01-05 10:08 | P.HPIM ---
History of Present Illness H&P Date: 01/05/19 This is a 78-year-old male patient of Dr. Putnam who presented with complaints of slurred speech and headache. Patient reports that yesterday morning patient started to have a headache and around noon he was making a phone call when he had difficulty with speech. Patient describes headache as sharp pain to the right sided sabianist. Patient reports that headache and slurred speech resolved by the time patient arrived to ER. Patient does have past medical history of TIA last March which she is maintained on Plavix and aspirin. Patient reports that he was taken off statin due to increased muscle weakness. Additional medical history includes diabetes, GERD, hyperlipidemia, hypertension, osteoarthritis, gastric ulcer and low back surgery. Head CT completed showing no acute intracranial process. Chest x-ray completed showing chronic changes with underlying COPD no acute cardiopulmonary process and no acute process. No acute process. EKG completed showing sinus bradycardia left axis deviation. Patient's creatinine elevated at 1.74 and bun 26. Patient denies any recent nausea vomiting or diarrhea. Patient does report that he did have some burning with urination earlier in the week. Urinary analysis and urine culture has been ordered. At this time patient denies any nausea vomiting or diarrhea. Patient denies chest pain or shortness of breath. Neuro symptoms have completely resolved. Patient's alert and oriented 3. Equal strength throughout all extremities. Speech is clear Review of Systems Please refer to HPI otherwise unremarkable Past Medical History Past Medical History: Asthma, CVA/TIA, Diabetes Mellitus, GERD/Reflux, Hyperlipidemia, Hypertension, Osteoarthritis (OA) Additional Past Medical History / Comment(s): Pt recently admitted to [facility] 03/13/18 with difficulty speaking-TIA, NIDDM type II, gastric ulcer years ago, passed kidney stone, has gallstones, chronic back pain with herniated discs, History of Any Multi-Drug Resistant Organisms: None Reported Past Surgical History: Back Surgery Additional Past Surgical History / Comment(s): 04/03/18 Arch study, low back surgery, bilateral cataract removal with lens implants, Past Anesthesia/Blood Transfusion Reactions: No Reported Reaction Past Psychological History: No Psychological Hx Reported Additional Psychological History / Comment(s): Pt resides with his spouse of 50 yrs. He uses no assistive device. He drives. 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 She had a CVA. She lived to be 72 yrs. old. Father Family Medical History: CVA/TIA Additional Family Medical History / Comment(s): Father had a CVA and was an invalid for 15 yrs. Medications and Allergies Home Medications Medication Instructions Recorded Confirmed Type Aspirin EC [Ecotrin Low Dose] 81 mg PO DAILY 01/02/18 01/04/19 History glipiZIDE XL [Glucotrol XL] 5 mg PO DAILY 01/02/18 01/04/19 History metFORMIN HCL [Glucophage] 500 mg PO BID 01/02/18 01/04/19 History Testosterone Cypionate 200 mg IM Q14D 03/13/18 01/04/19 History [Depo-Testosterone] Clopidogrel [Plavix] 75 mg PO DAILY tab 03/14/18 01/04/19 Rx Diltiazem HCl [Diltiazem 24Hr ER] 180 mg PO BID 06/12/18 01/04/19 History Albuterol Sulfate [Albuterol 1 puff INHALATION RT-Q4H PRN 01/04/19 01/04/19 History Sulfate Hfa] Lisinopril [Zestril] 10 mg PO DAILY 01/04/19 01/04/19 History Mometasone/Formoterol [Dulera 200 2 puff INHALATION RT-DAILY 01/04/19 01/04/19 History Mcg/5 Mcg Inhaler] Allergies Allergy/AdvReac Type Severity Reaction Status Date / Time losartan Allergy Swelling Verified 01/04/19 14:19 Physical Exam Vitals: Vital Signs Temp Pulse Pulse Resp BP BP Pulse Ox 01/05/19 04:10 97.4 F L 70 16 170/87 97 01/04/19 23:20 73 18 01/04/19 23:10 97.7 F 73 18 171/88 96 01/04/19 23:00 69 18 135/90 98 01/04/19 21:25 73 18 136/82 95 01/04/19 20:48 73 18 182/88 96 01/04/19 19:36 18 01/04/19 18:30 74 17 149/73 95 01/04/19 18:00 70 17 161/83 93 L 01/04/19 17:30 69 18 162/122 96 01/04/19 17:00 71 16 142/82 97 01/04/19 16:30 60 17 139/75 95 01/04/19 16:14 98.2 F 62 18 143/76 96 01/04/19 15:53 98.2 F 60 17 143/76 96 01/04/19 15:30 17 133/68 01/04/19 15:00 57 L 18 131/69 94 L 01/04/19 14:30 98.0 F 58 L 17 130/76 94 L 01/04/19 14:21 58 L 94 L 01/04/19 14:15 98.0 F 58 L 17 130/76 95 01/04/19 14:05 97.9 F 58 L 18 118/68 97 Intake and Output 01/04/19 01/05/19 01/05/19 22:59 06:59 14:59 Intake Total 540 240 Balance 540 240 Intake: Intake, IV Titration 300 Amount Sodium Chloride 0.9% 1, 300 000 ml @ 100 mls/hr IV . Q10H STA Rx#:[id number] Oral 240 240 Other: Voiding Method Toilet # Voids 3 Weight 82.6 kg Head normocephalic Neck supple Lungs clear to auscultation bilaterally no wheezing or crackles Heart regular rate and rhythm S1-S2, no rub or gallop Abdomen is soft nontender nondistended positive bowel sounds no hepatosplenomegaly Extremities no edema Neuro alert and orientated to 3. No signs of facial droop. Speech is clear. Equal strength throughout all extremities Results CBC & Chem 7: 01/05/19 07:00 01/05/19 07:00 Labs: Abnormal Lab Results - Last 24 Hours (Table) 01/04/19 01/04/19 01/04/19 Range/Units 14:13 14:13 14:13 WBC 11.3 H (3.8-10.6) k/uL RBC 6.16 H (4.30-5.90) m/uL Hgb 18.9 H (13.0-17.5) gm/dL Hct 55.8 H (39.0-53.0) % RDW 15.8 H (11.5-15.5) % Neutrophils # 8.1 H (1.3-7.7) k/uL BUN 26 H (9-20) mg/dL Creatinine 1.74 H (0.66-1.25) mg/dL Glucose (74-99) mg/dL POC Glucose (mg/dL) (75-99) mg/dL Calcium 10.8 H (8.4-10.2) mg/dL Triglycerides 236 H (<150) mg/dL Cholesterol 207 H (<200) mg/dL LDL Cholesterol, Calc 116 H (0-99) mg/dL 01/04/19 01/04/19 01/05/19 Range/Units 19:27 21:30 07:00 WBC (3.8-10.6) k/uL RBC (4.30-5.90) m/uL Hgb (13.0-17.5) gm/dL Hct (39.0-53.0) % RDW (11.5-15.5) % Neutrophils # (1.3-7.7) k/uL BUN (9-20) mg/dL Creatinine 1.34 H (0.66-1.25) mg/dL Glucose 101 H (74-99) mg/dL POC Glucose (mg/dL) 179 H 157 H (75-99) mg/dL Calcium (8.4-10.2) mg/dL Triglycerides (<150) mg/dL Cholesterol (<200) mg/dL LDL Cholesterol, Calc (0-99) mg/dL 01/05/19 Range/Units 07:00 WBC (3.8-10.6) k/uL RBC (4.30-5.90) m/uL Hgb (13.0-17.5) gm/dL Hct (39.0-53.0) % RDW 15.9 H (11.5-15.5) % Neutrophils # (1.3-7.7) k/uL BUN (9-20) mg/dL Creatinine (0.66-1.25) mg/dL Glucose (74-99) mg/dL POC Glucose (mg/dL) (75-99) mg/dL Calcium (8.4-10.2) mg/dL Triglycerides (<150) mg/dL Cholesterol (<200) mg/dL LDL Cholesterol, Calc (0-99) mg/dL Thrombosis Risk Factor Assmnt - Choose All That Apply Any of the Below Risk Factors Present?: Yes Each Factor Represents 1 point: Obesity (BMI >25) Other Risk Factors: Yes Each Risk Factor Represents 3 Points: Age 75 years or older Other congenital or acquired thrombophilia - If yes, enter type in comment: No Thrombosis Risk Factor Assessment Total Risk Factor Score: 4 Thrombosis Risk Factor Assessment Level: Moderate Risk Assessment and Plan Assessment: 1. Slurred speech possibly related to TIA. Head CT completed showing no acute intracranial process. Carotid Doppler study completed showing mild degree of grayscale Kelsey is plaquing with no sonographically evident hemodynamically significant stenosis within either visualized carotid arterial system. Neurology services have been consulted. MRI of the brain and EEG has been ordered. 2-D echo ordered. PT OT consult placed 2. History of previous TIA in March 2018 3. History of hyperlipidemia. Patient admitted not currently on statin. Patient reports that he was on simvastatin but had severe muscle weakness and simvastatin was DC'd. 4. History of diabetes mellitus type 2. Home meds have been resumed. Hemoglobin A1c will be ordered. Sliding scale insulin ordered 5. Acute kidney injury. Creatinine elevated at 1.74 and bun 26. Creatinine is improving 1.34 normal saline at 100. Urinary analysis has been ordered to rule out infection 6. Essential hypertension. Blood pressure elevated. Patient maintained on lisinopril Norvasc added 7. History of osteoarthritis 8. Previous history of heart study in March 2018 9. Bilateral cataract removal with lens implants 10. Chronic back pain related to herniated disks DVT prophylaxis heparin. GI prophylaxis Pepcid Time with Patient: Greater than 30 (Greater than 60% of the total time spent in counseling and coordination of care. I performed an examination of the patient and discussed their management with the Nurse Practitioner. I have reviewed the Nurse Practitioner's notes and agree with the documented findings and plan of care)
[2019-01-05] MEDS: amLODIPine 10 MG TAB PO SCH (10:49)
[2019-01-05] MEDS: LISINOPRIL 10 MG TAB PO SCH (10:49)
[2019-01-05] MEDS: CLOPIDOGREL 75 MG TAB PO SCH (10:49)
[2019-01-05] MEDS: DILTIAZEM CD 180 MG CAP.ER.24H PO SCH (10:50)
[2019-01-05 11:24] VITALS: RESP 16
[2019-01-05 11:53] LABS: Glucose,Whole Blood 88 mg/dL (75-99)
--- NOTE | 2019-01-05 13:32 | ECHOF ---
Referral Reason:TIA MEASUREMENTS -------- HEIGHT: 172.7 cm WEIGHT: 82.6 kg BP: 170/82 IVSd: 1.1 cm (0.6 - 1.1) LVIDd: 4.1 cm (3.9 - 5.3) LVPWd: 1.1 cm (0.6 - 1.1) IVSs: 1.3 cm LVIDs: 2.8 cm LVPWs: 1.4 cm LA Diam: 3.8 cm (2.7 - 3.8) LAESV Index (A-L): 24.34 ml/m Ao Diam: 3.4 cm (2.0 - 3.7) AV Cusp: 1.5 cm (1.5 - 2.6) LA Diam: 4.1 cm (2.7 - 3.8) MV EXCURSION: 26.725 mm (> 18.000) MV EF SLOPE: 128 mm/s (70 - 150) EPSS: 0.9 cm MV E Ciro: 0.55 m/s MV DecT: 213 ms MV A Ciro: 0.94 m/s MV E/A Ratio: 0.59 RAP: 5.00 mmHg RVSP: 16.42 mmHg FINDINGS -------- Sinus rhythm. This was a technically adequate study. The left ventricular size is normal. There is mild concentric left ventricular hypertrophy. Overa ll left ventricular systolic function is normal with, an EF between 55 - 60 %. The diastolic fillin g pattern is normal for the age of the patient 13.19. The right ventricle is normal in size. The left atrial size is normal. Normal LA size by volume 22+/-6 ml/m2. The right atrial size is normal. There is mild aortic valve sclerosis. There is no evidence of aortic regurgitation. Mild mitral annular calcification present. Mild mitral regurgitation is present. Mild tricuspid regurgitation present. There is no evidence of pulmonary hypertension. The right v entricular systolic pressure, as measured by Doppler, is 16.42mmHg. There is no pulmonic regurgitation present. The aortic root size is normal. There is no pericardial effusion. CONCLUSIONS -------- 1. Sinus rhythm. 2. This was a technically adequate study. 3. The left ventricular size is normal. 4. There is mild concentric left ventricular hypertrophy. 5. Overall left ventricular systolic function is normal with, an EF between 55 - 60 %. 6. The diastolic filling pattern is normal for the age of the patient 13.19 7. The right ventricle is normal in size. 8. The left atrial size is normal. 9. Normal LA size by volume 22+/-6 ml/m2. 10. The right atrial size is normal. 11. There is mild aortic valve sclerosis. 12. Mild mitral annular calcification present. 13. Mild mitral regurgitation is present. 14. Mild tricuspid regurgitation present. 15. There is no evidence of pulmonary hypertension. 16. The right ventricular systolic pressure, as measured by Doppler, is 16.42mmHg. 17. There is no pulmonic regurgitation present. 18. The aortic root size is normal. 19. There is no pericardial effusion. STOCK WETTER: Marleen Grimm RDCS
--- NOTE | 2019-01-05 14:52 | MR ---
EXAMINATION TYPE: MR brain wo con DATE OF EXAM: 01/05/2019 COMPARISON: CT brain from yesterday and older CT March 13, 2018 HISTORY: Recurrent aphasia rule out CVA. Acute onset neuro deficits with weakness and dizziness on ad mission yesterday TECHNIQUE: Multiplanar, multisequence imaging of the brain and brainstem is performed without IV cont rast. FINDINGS: Diffusion weighted images demonstrate no evidence of a recent infarct or other diffusion abnormality. There is no worrisome extra-axial fluid collection. Mild to moderate diffuse ventricular and sulcal p rominence is redemonstrated. Areas of confluent low attenuation in the periventricular white matter a re present. Midline structures demonstrate normal morphology. The craniocervical junction appears within normal limits. Normal vascular flow voids are present. Mild mucosal thickening involving ethmoid sinuses radha aterally. Globes are intact bilaterally. Left-sided nasal polyp suspected axial image 7. Correlate cl inically. IMPRESSION: No evidence of a recent infarct. [id number] diffuse cerebral atrophy and chronic sm all vessel ischemic change redemonstrated.
[2019-01-05 15:09] LABS: Appearance,Urine Clear (Clear); Bilirubin,Urine Negative (Negative); Blood,Urine Negative (Negative); Color,Urine Light Yellow; Glucose,Urine (UA) Negative (Negative); Ketones,Urine Negative (Negative); Leukocyte Esterase,Urine Negative (Negative); Nitrite,Urine Negative (Negative); PH, Urine 5.5 (5.0-8.0); Protein,Urine Negative (Negative); Specific Gravity,Urine 1.007 (1.001-1.035); Urobilinogen,Urine <2.0 mg/dL (<2.0)
--- NOTE | 2019-01-05 16:00 | EEG ---
ELECTROENCEPHALOGRAM REPORT DATE OF TESTING: January 05, 2019. CLINICAL PROBLEM: Recurrent episodes of aphasia, headache. EEG was requested to rule out epileptic activity. TYPE OF RECORDING: Bedside tracing using the 10-20 international electrode placement system. No sedation was given prior to the beginning of this recording. FINDINGS: At the beginning of this recording, the background is seen with a theta slowing with roving eye movements. No definitive sleep architecture is seen. Photic stimulation elicits a symmetric driving response. Hyperventilation was not performed in this recording. As the tracing progresses, there is brief appearance of a symmetric alpha rhythm of 8-10 hertz in the background. There is no background asymmetry, ictal or interictal patterns appreciated. IMPRESSION: This is a normal awake/drowsy electroencephalogram without background asymmetry or epileptiform discharges. Clinical correlation is advised. MMODL / IJN: [id number] / MTDD
--- NOTE | 2019-01-05 16:05 | P.PN ---
Progress Note - Text Progress Note Date: 01/05/19 Testing results reviewed with patient. MRI Brain shows no new ischemic infarct. There is some cerebral atrophy and chronic small vessel disease, similar to previous CT Head findings. Nil acute. EEG is normal awake/drowsy. No EPD. TTE shows normal LV size, mild concentric LVH, normal EF between 55-60% and normal LA size. Cardiology switched his statin to rosuvastatin. RN mentions patient will be set up for a Holtor monitor on discharge as well. Do recommend continued maximal medical management with aspirin 81mg/day and clopidogrel 75mg/day. Statistically, the chance of new cerebrovascular event after TIA is greatest in next 72 hours. I would recommend that he stay on DAPT for at least 7 days before contemplating going off clopidogrel in preparation for his lumbar procedure. While he is off clopidogrel, I would like him to take a full-strength aspirin 325mg po qd (or four aspirin 81mg). d/w patient and RN in detail. All questions answered. No other inpatient neuro recs at this time. Will revisit patient prn. Please call with new ?.
[2019-01-05 16:46] LABS: Glucose,Whole Blood 103 mg/dL (75-99)
[2019-01-05] MEDS: ASPIRIN 81 MG PO SCH (18:14)
[2019-01-05 18:22] LABS: Hemoglobin A1C 6.2 % (4.0-6.0)
[2019-01-05 20:35] LABS: Glucose,Whole Blood 90 mg/dL (75-99)
[2019-01-05] MEDS ORDERED: ATORVASTATIN 10 MG TAB PO SCH (21:00)
[2019-01-05] MEDS: HEPARIN SODIUM,PORCINE 5,000 UNIT/ML 1 ML VIAL SQ SCH (21:16)
[2019-01-06 06:05] LABS: Glucose,Whole Blood 90 mg/dL (75-99)
[2019-01-06] MEDS: INSULIN ASPART (NovoLOG) 100 UNIT/ML VIAL SQ SCH ×2 (06:41→11:47)
[2019-01-06] MEDS: metFORMIN 500 MG TAB PO SCH (07:10)
[2019-01-06 07:33] LABS: Basophils % (A) 0 %; Eosinophils # (A) 0.1 k/uL (0-0.7); Eosinophils % (A) 2 %; HCT 50.7 % (39.0-53.0); HGB 17.4 gm/dL (13.0-17.5); Lymphocytes % (A) 26 %; MCH 31.2 pg (25.0-35.0); MCHC 34.3 g/dL (31.0-37.0); MCV 90.9 fL (80.0-100.0); Mean Platelet Volume 6.8; Monocytes # (A) 0.4 k/uL (0-1.0); Monocytes % (A) 6 %; Neutrophils # (A) 4.9 k/uL (1.3-7.7); Neutrophils % (A) 64 %; Platelet Count 213 k/uL (150-450); RBC 5.57 m/uL (4.30-5.90); RDW 15.7 % (11.5-15.5); WBC 7.6 k/uL (3.8-10.6)
[2019-01-06 07:41] LABS: Albumin 3.9 g/dL (3.5-5.0); Potassium 4.6 mmol/L (3.5-5.1); Total Bilirubin 0.7 mg/dL (0.2-1.3); Total Protein 6.5 g/dL (6.3-8.2)
[2019-01-06] MEDS: SYMBICORT 160-4.5 MCG INHALER INHALATION SCH (08:40)
[2019-01-06] MEDS ORDERED: FAMOTIDINE 20 MG TAB PO SCH (09:00)
[2019-01-06] MEDS: LISINOPRIL 10 MG TAB PO SCH (09:04)
[2019-01-06] MEDS: amLODIPine 10 MG TAB PO SCH (09:04)
[2019-01-06] MEDS: ASPIRIN 81 MG PO SCH (09:04)
[2019-01-06] MEDS: CLOPIDOGREL 75 MG TAB PO SCH (09:04)
[2019-01-06] MEDS: HEPARIN SODIUM,PORCINE 5,000 UNIT/ML 1 ML VIAL SQ SCH (09:04)
[2019-01-06 11:46] LABS: Glucose,Whole Blood 64 mg/dL (75-99)
[2019-01-06 12:17] LABS: Glucose,Whole Blood 93 mg/dL (75-99)
[2019-01-06 12:42] VITALS: BP 151/90; PULSE 85; TEMP 98.1
--- NOTE | 2019-01-06 12:51 | P.DS ---
Providers Date of admission: 01/04/19 16:13 Expected date of discharge: 01/06/19 Attending physician: Kayleen Kelly Consults: 01/05/19 08:13 Consult Physician Routine Consulting Provider: Sara Blanco Consult Reason/Comments: TIA Do you want consulting provider notified?: Yes 01/05/19 12:58 Consult Physician Routine Consulting Provider: Valeria Torres Consult Reason/Comments: TIA Do you want consulting provider notified?: Already Contacted Primary care physician: Rama Putnam Hospital Course: Discharge diagnosis 1. Slurred speech possibly related to TIA. Head CT completed showing no acute intracranial process. Carotid Doppler study completed showing mild degree of grayscale Kelsey is plaquing with no sonographically evident hemodynamically significant stenosis within either visualized carotid arterial system. 2-D echo completed showing EF of 55-60%. EEG completed showing normal awake drowsy EEG with out background asymmetry or epileptiform discharges. MRI of the brain completed showing no evidence for recent infarct. Mild to moderate diffuse cerebral atrophy and chronic small vessel ischemic change redemonstrated. Per neurology services continue maximal medical management with aspirin 81 mg and Plavix 75 mg daily. Per cardiology patient to be set up with 24-hour event Holter monitor to be picks up in office after discharge. 2. History of previous TIA in March 2018 3. History of hyperlipidemia. Patient admitted not currently on statin. Patient reports that he was on simvastatin but had severe muscle weakness and simvastatin was DC'd. Discussed case with cardiology and PE Dr. Judd. Recommended patient be discharged on 20 mg Lipitor and continue to monitor outpatient 4. History of diabetes mellitus type 2. Home meds have been resumed. Hemoglobin A1c will be ordered. Sliding scale insulin ordered 5. Acute kidney injury. Creatinine elevated at 1.74 and bun 26. Creatinine is improving 1.34 normal saline at 100. UA negative. Creatinine improving to 1.1 bun 19 6. Essential hypertension. Blood pressure elevated. Patient maintained on lisinopril Norvasc added. Patient's Cardizem has been DC'd per cardiology 7. History of osteoarthritis 8. Previous history of heart study in March 2018 9. Bilateral cataract removal with lens implants 10. Chronic back pain related to herniated disks Hospital course This is a 78-year-old male patient of Dr. Putnam who presented with complaints of slurred speech and headache. Patient reports that yesterday morning patient started to have a headache and around noon he was making a phone call when he had difficulty with speech. Patient describes headache as sharp pain to the right sided yarsanism. Patient reports that headache and slurred speech resolved by the time patient arrived to ER. Patient does have past medical history of TIA last March which she is maintained on Plavix and aspirin. Patient reports that he was taken off statin due to increased muscle weakness. Additional medical history includes diabetes, GERD, hyperlipidemia, hypertension, osteoarthritis, gastric ulcer and low back surgery. Head CT completed showing no acute intracranial process. Chest x-ray completed showing chronic changes with underlying COPD no acute cardiopulmonary process and no acute process. No acute process. EKG completed showing sinus bradycardia left axis deviation. Patient's creatinine elevated at 1.74 and bun 26. Patient denies any recent nausea vomiting or diarrhea. Patient does report that he did have some burning with urination earlier in the week. Urinary analysis and urine culture has been ordered. At this time patient denies any nausea vomiting or diarrhea. Patient denies chest pain or shortness of breath. Neuro symptoms have completely resolved. Patient's alert and oriented 3. Equal strength throughout all extremities. Speech is clear On 01/06/2019 patient's alert and oriented 3. Patient has had no additional neuro symptoms. Patient has remained in normal sinus rhythm. Patient was evaluated by neurology services MRI completed and reviewed per neurology rec [facility] medical management with aspirin and Plavix at this time. Per cardiology services 24-hour event monitor will be applied upon discharge. Norvasc added for blood pressure control Cardizem DC'd. Patient also to be maintained on Lipitor 20 mg daily and monitor outpatient. At this time patient denies chest pain or shortness of breath. Patient denies nausea vomiting or diarrhea. Patient denies any urinary burning or frequency I performed an examination of the patient and discussed their management with the Nurse Practitioner. I have reviewed the Nurse Practitioner's notes and agree with the documented findings and plan of care Patient Condition at Discharge: Stable Plan - Discharge Summary Discharge Rx Participant: No New Discharge Prescriptions: New Atorvastatin [Lipitor] 20 mg PO HS 30 Days #30 tab amLODIPine [Norvasc] 10 mg PO DAILY 30 Days #30 tab Continue Aspirin EC [Ecotrin Low Dose] 81 mg PO DAILY glipiZIDE XL [Glucotrol XL] 5 mg PO DAILY metFORMIN HCL [Glucophage] 500 mg PO BID Testosterone Cypionate [Depo-Testosterone] 200 mg IM Q14D Clopidogrel [Plavix] 75 mg PO DAILY tab Albuterol Sulfate [Albuterol Sulfate Hfa] 1 puff INHALATION RT-Q4H PRN PRN Reason: Shortness Of Breath Mometasone/Formoterol [Dulera 200 Mcg/5 Mcg Inhaler] 2 puff INHALATION RT- DAILY Lisinopril [Zestril] 10 mg PO DAILY Discontinued Diltiazem HCl [Diltiazem 24Hr ER] 180 mg PO BID Discharge Medication List Aspirin EC [Ecotrin Low Dose] 81 mg PO DAILY 01/02/18 [History] glipiZIDE XL [Glucotrol XL] 5 mg PO DAILY 01/02/18 [History] metFORMIN HCL [Glucophage] 500 mg PO BID 01/02/18 [History] Testosterone Cypionate [Depo-Testosterone] 200 mg IM Q14D 03/13/18 [History] Clopidogrel [Plavix] 75 mg PO DAILY tab 03/14/18 [Rx] Albuterol Sulfate [Albuterol Sulfate Hfa] 1 puff INHALATION RT-Q4H PRN 01/04/19 [History] Lisinopril [Zestril] 10 mg PO DAILY 01/04/19 [History] Mometasone/Formoterol [Dulera 200 Mcg/5 Mcg Inhaler] 2 puff INHALATION RT-DAILY 01/04/19 [History] Atorvastatin [Lipitor] 20 mg PO HS 30 Days #30 tab 01/06/19 [Rx] amLODIPine [Norvasc] 10 mg PO DAILY 30 Days #30 tab 01/06/19 [Rx] Follow up Appointment(s)/Referral(s): Shane Clemons MD [Family Provider] - 01/22/19 10:30 am (Friday with Lucy HICKS) Rama Putnam MD [Primary Care Provider] - 01/14/19 1:15 pm () Patient Instructions/Handouts: Transient Ischemic Attack (DC) Activity/Diet/Wound Care/Special Instructions: Event monitor-pharmacy picking technician at cardiology office between 1pm-4pm today Activity as tolerated Diet heart healthy Discharge Disposition: HOME SELF-CARE
--- NOTE | 2019-01-06 14:58 | P.PN ---
Subjective Progress Note Date: 01/06/19 This is a pleasant 78-year-old gentleman with history of diabetes, hypertension, hyperlipidemia, prior CVA in March of last year, who presented to the hospital on this occasion with symptoms of expressive aphasia and garbled speech. According to the patient, according to the patient, he was speaking on the phone, or getting ready to make a phone call, when he was unable to get his words out, when the words didn't come out a very very garbled. Also at that time patient states that he had a headache somewhat sharp in nature. The symptoms in total lasted approximately 45 minutes, and by the time he reached the emergency room he states that he was back to his normal self. CAT scan of the brain on arrival did not reveal any acute intracranial process. Chest x-ray revealed chronic changes with underlying COPD, no acute process noted. EKG shows a sinus bradycardia with left axis deviation, no acute changes noted. Carotid Doppler study revealed a mild degree of mansfield scale atheromatous plaquing with no hemodynamically significant stenosis. Blood pressure on arrival here 118/60 with a heart rate in the 50s, 97% on room air. Blood pressure this morning 170/87 with a heart rate in the 70s, 97% on room air. White blood cell count on admission 11.3, hemoglobin 18.9, platelet count 248. Sodium 139, potassium 4.3, BUN 26 and creatinine 1.7, troponin 0.012, cholesterol 207, tr iglycerides 236. LDL 116 and HDL 44. Sodium this morning 139, potassium 4.6, BUN 20 and creatinine 1.3. The patient states he had taken Zocor in the past and developed some muscle aching, this was subsequently discontinued and patient had not been started on any other drug for his cholesterol. We will start the patient on Crestor today. His most recent echocardiogram with Doppler study was performed in March 2018, revealed an ejection fraction of 55-60%. At the time of my examination this morning, patient feels well, denies any difficulty in speaking this morning, denies headache. 01/06/2019 Patient was seen and examined this morning, no further expressive aphasia, no slurring of speech, he states he did have some lightheadedness earlier in the day because of low blood sugars. Hemodynamically he is been stable and his blood pressure this morning is 126/70. From our perspective he may be able to be discharged home today, event monitor will be picked up at the office and he 'll have a follow-up appointment subsequent to that. Echo cardiogram with Doppler study revealed a normal left ventricular systolic function. Objective - Vital Signs Vital signs: Vital Signs Temp 98.1 F 01/06/19 12:41 Pulse 85 01/06/19 12:41 Resp 16 01/06/19 12:41 BP 151/90 01/06/19 12:41 Pulse Ox 97 01/06/19 12:41 Intake & Output 01/05/19 01/06/19 01/06/19 18:59 06:59 18:59 Intake Total 240 480 480 Output Total 1600 Balance -1360 480 480 Weight 80.5 kg Intake: Oral 240 480 480 Output: Urine 1600 Other: Voiding Method Toilet # Voids 2 2 - Exam PHYSICAL EXAMINATION: GENERAL: 78-year-old gentleman in no acute distress at the time of my examination HEENT: Head is atraumatic, normocephalic. Pupils equal, round. Sclera anicteric. Conjunctiva are clear. Mucous membranes of the mouth are moist. N daniela is supple. There is no elevated jugular venous pressure. No carotid bruit is heard. HEART EXAMINATION: Heart S1, S2 normal. No murmur or gallop heard. CHEST EXAMINATION: Lungs are clear to auscultation and precussion. No chest wall tenderness is noted on palpation or with deep breathing. ABDOMEN: Soft, nontender. Bowel sounds are heard. No organomegaly noted. EXTREMITIES: 2+ peripheral pulses with no evidence of peripheral edema and no calf tenderness noted. NEUROLOGIC patient is awake, alert and oriented 3 . - Labs CBC & Chem 7: 01/06/19 06:58 01/06/19 06:58 Labs: Abnormal Lab Results - Last 24 Hours (Table) 01/05/19 01/05/19 01/06/19 Range/Units 07:00 16:44 06:58 RDW 15.7 H (11.5-15.5) % POC Glucose (mg/dL) 103 H (75-99) mg/dL Hemoglobin A1c 6.2 H (4.0-6.0) % 01/06/19 Range/Units 11:43 RDW (11.5-15.5) % POC Glucose (mg/dL) 64 L (75-99) mg/dL Hemoglobin A1c (4.0-6.0) % Assessment and Plan Plan: Assessment and plan #1 symptoms of expressive aphasia with garbled speech, lasting 45 minutes in duration, suggestive of TIA #2 history of prior TIA in March 2018 #3 hypertension #4 hyperlipidemia, patient had been on Zocor in the past, developed muscle problems and was taken off of that. #5 diabetes Plan Echo revealed normal left ventricular systolic function. From cardiology's perspective, patient may be able to be discharged home today, he will pickup an event monitor at the office post discharge. A follow-up appointment after that. DNP note has been reviewed, I agree with a documented findings and plan of care. Patient was seen and examined.
== END 2019-01-06 13:55 | disposition home or self-care (01) ==
LOC: EC 13:56 → 3SCARD 16:13
PROVIDERS: ADMIT Internal Medicine; ATTEND Internal Medicine
DX: R47.81 Slurred speech (principal); R51 Headache; N17.9 Acute kidney failure, unspecified; I65.23 Occlusion and stenosis of bilateral carotid arteries; E78.5 Hyperlipidemia, unspecified; E11.9 Type 2 diabetes mellitus without complications; I10 Essential (primary) hypertension; G89.29 Other chronic pain; M54.9 Dorsalgia, unspecified; R00.1 Bradycardia, unspecified; K21.9 Gastro-esophageal reflux disease without esophagitis; K80.20 Calculus of gallbladder without cholecystitis without obstruction; J44.9 Chronic obstructive pulmonary disease, unspecified; E66.9 Obesity, unspecified; Z68.27 Body mass index [BMI] 27.0-27.9, adult; M19.90 Unspecified osteoarthritis, unspecified site; I67.9 Cerebrovascular disease, unspecified; Z79.82 Long term (current) use of aspirin; Z79.02 Long term (current) use of antithrombotics/antiplatelets; Z79.51 Long term (current) use of inhaled steroids; Z79.84 Long term (current) use of oral hypoglycemic drugs; Z79.899 Other long term (current) drug therapy; Z88.8 Allergy status to other drugs, medicaments and biological substances; Z96.1 Presence of intraocular lens; Z98.41 Cataract extraction status, right eye; Z98.42 Cataract extraction status, left eye; Z86.73 Personal history of transient ischemic attack (TIA), and cerebral infarction without residual deficits; Z87.442 Personal history of urinary calculi; Z87.11 Personal history of peptic ulcer disease; Z82.3 Family history of stroke; Z83.3 Family history of diabetes mellitus; Z82.49 Family history of ischemic heart disease and other diseases of the circulatory system
CPT/HCPCS: 96361 ×3; 96372 ×2; 96360; 99285; 36415; 94640 ×3; 95816; 93005; 93306; 97162; 97165; 80061; 80053 ×2; 80048; 82550; 84484; 85025 ×3; 85610; 85730; 81003; 83036; 71046; 93880; 70450; 70551; G0378 ×3; J1644 ×2

== ENCOUNTER 2019-01-15 15:10 | Emergency (ER) | payer MEDICARE ==
[2019-01-15 15:16] VITALS: TEMP 98.1
--- NOTE | 2019-01-15 15:47 | ED ---
Neuro HPI - General Chief Complaint: Neuro Symptoms/Deficit Stated Complaint: POSS TIA Time Seen by Provider: 01/15/19 15:32 Source: patient, RN notes reviewed, old records reviewed Mode of arrival: wheelchair - History of Present Illness Is the patient presenting with stroke symptoms?: No Initial Comments: This is a 77-year-old male with a recent admission for evaluation TIA symptoms who states he had a recurrence of similar symptoms just prior to arrival he states he had difficulty with speech no focal weakness this lasted perhaps 20-25 minutes. He does state that he had elevated blood pressure during the episode approximately 190/81. He states that it is all completely resolved he feels like there is a hat over his forehead but no overt pain to his head no blurry vision no focal deficits was upper or lower extremities. He does state that he just got a 30 day pulmonary specialist. He was recently fully evaluated in the hospital. Did include MRI and EEG and cardiac evaluation. Please see the previous admission for complete results - Related Data Home Medications: Home Medications Medication Instructions Recorded Confirmed Aspirin EC [Ecotrin Low Dose] 81 mg PO DAILY 01/02/18 01/15/19 glipiZIDE XL [Glucotrol XL] 5 mg PO DAILY 01/02/18 01/15/19 metFORMIN HCL [Glucophage] 500 mg PO BID 01/02/18 01/15/19 Testosterone Cypionate 200 mg IM Q14D 03/13/18 01/15/19 [Depo-Testosterone] Albuterol Sulfate [Albuterol 1 puff INHALATION RT-Q4H PRN 01/04/19 01/15/19 Sulfate Hfa] Lisinopril [Zestril] 10 mg PO DAILY 01/04/19 01/15/19 Mometasone/Formoterol [Dulera 200 2 puff INHALATION RT-DAILY 01/04/19 01/15/19 Mcg/5 Mcg Inhaler] Previous Rx's Medication Instructions Recorded Clopidogrel [Plavix] 75 mg PO DAILY tab 03/14/18 Atorvastatin [Lipitor] 20 mg PO HS 30 Days #30 tab 01/06/19 amLODIPine [Norvasc] 10 mg PO DAILY 30 Days #30 tab 01/06/19 Allergies/Adverse Reactions: Allergies Allergy/AdvReac Type Severity Reaction Status Date / Time losartan Allergy Swelling Verified 01/15/19 16:10 Review of Systems ROS Statement: Those systems with pertinent positive or pertinent negative responses have been documented in the HPI. ROS Other: All systems not noted in ROS Statement are negative. General Exam - General Exam Comments Initial Comments: This is a well-developed well-nourished awake alert oriented 3 male General appearance: alert, in no apparent distress Head exam: Present: atraumatic, normocephalic, normal inspection Eye exam: Present: normal appearance, PERRL, EOMI. Absent: scleral icterus, conjunctival injection, periorbital swelling ENT exam: Present: normal exam, mucous membranes moist Neck exam: Present: normal inspection, full ROM, other (No stridor JVD or bruits). Absent: tenderness, meningismus, lymphadenopathy Respiratory exam: Present: normal lung sounds bilaterally. Absent: respiratory distress, wheezes, rales, rhonchi, stridor Cardiovascular Exam: Present: regular rate, normal rhythm, normal heart sounds. Absent: systolic murmur, diastolic murmur, rubs, gallop, clicks GI/Abdominal exam: Present: soft, normal bowel sounds. Absent: distended, tenderness, guarding, rebound, rigid Extremities exam: Present: normal inspection, full ROM, normal capillary refill. Absent: tenderness, pedal edema, joint swelling, calf tenderness Back exam: Present: normal inspection Neurological exam: Present: alert, oriented X3, CN II-XII intact Psychiatric exam: Present: normal affect, normal mood Skin exam: Present: warm, dry, intact, normal color. Absent: rash Stroke MDM - Lab Data Result diagrams: 01/15/19 16:00 01/15/19 16:00 Lab Results 01/15/19 01/15/19 01/15/19 Range/Units 16:00 16:00 16:00 WBC 9.0 (3.8-10.6) k/uL RBC 5.79 (4.30-5.90) m/uL Hgb 17.9 H (13.0-17.5) gm/dL Hct 52.0 (39.0-53.0) % MCV 89.7 (80.0-100.0) fL MCH 30.9 (25.0-35.0) pg MCHC 34.5 (31.0-37.0) g/dL RDW 13.6 (11.5-15.5) % Plt Count 189 (150-450) k/uL Neutrophils % 75 % Lymphocytes % 15 % Monocytes % 5 % Eosinophils % 2 % Basophils % 1 % Neutrophils # 6.8 (1.3-7.7) k/uL Lymphocytes # 1.3 (1.0-4.8) k/uL Monocytes # 0.5 (0-1.0) k/uL Eosinophils # 0.2 (0-0.7) k/uL Basophils # 0.1 (0-0.2) k/uL PT 9.9 (9.0-12.0) sec INR 0.9 (<1.2) APTT 26.4 (22.0-30.0) sec Sodium 140 (137-145) mmol/L Potassium 4.3 (3.5-5.1) mmol/L Chloride 106 (98-107) mmol/L Carbon Dioxide 23 (22-30) mmol/L Anion Gap 11 mmol/L BUN 24 H (9-20) mg/dL Creatinine 1.17 (0.66-1.25) mg/dL Est GFR (CKD-EPI)AfAm 68 (>60 ml/min/1.73 sqM) Est GFR (CKD-EPI)NonAf 59 (>60 ml/min/1.73 sqM) Glucose 82 (74-99) mg/dL Calcium 9.9 (8.4-10.2) mg/dL Total Bilirubin 0.8 (0.2-1.3) mg/dL AST 27 (17-59) U/L ALT 29 (21-72) U/L Alkaline Phosphatase 75 (38-126) U/L Creatine Kinase 214 H (55-170) U/L Troponin I (0.000-0.034) ng/mL Total Protein 7.0 (6.3-8.2) g/dL Albumin 4.4 (3.5-5.0) g/dL 01/15/19 Range/Units 16:00 WBC (3.8-10.6) k/uL RBC (4.30-5.90) m/uL Hgb (13.0-17.5) gm/dL Hct (39.0-53.0) % MCV (80.0-100.0) fL MCH (25.0-35.0) pg MCHC (31.0-37.0) g/dL RDW (11.5-15.5) % Plt Count (150-450) k/uL Neutrophils % % Lymphocytes % % Monocytes % % Eosinophils % % Basophils % % Neutrophils # (1.3-7.7) k/uL Lymphocytes # (1.0-4.8) k/uL Monocytes # (0-1.0) k/uL Eosinophils # (0-0.7) k/uL Basophils # (0-0.2) k/uL PT (9.0-12.0) sec INR (<1.2) APTT (22.0-30.0) sec Sodium (137-145) mmol/L Potassium (3.5-5.1) mmol/L Chloride (98-107) mmol/L Carbon Dioxide (22-30) mmol/L Anion Gap mmol/L BUN (9-20) mg/dL Creatinine (0.66-1.25) mg/dL Est GFR (CKD-EPI)AfAm (>60 ml/min/1.73 sqM) Est GFR (CKD-EPI)NonAf (>60 ml/min/1.73 sqM) Glucose (74-99) mg/dL Calcium (8.4-10.2) mg/dL Total Bilirubin (0.2-1.3) mg/dL AST (17-59) U/L ALT (21-72) U/L Alkaline Phosphatase (38-126) U/L Creatine Kinase (55-170) U/L Troponin I <0.012 (0.000-0.034) ng/mL Total Protein (6.3-8.2) g/dL Albumin (3.5-5.0) g/dL - NIH Stroke Scale 1a. Level of Consciousness: (0) alert 1b. LOC Questions: (0) answers correctly 1c. LOC Commands: (0) performs tasks correctly 2. Best Gaze: (0) normal 3. Visual: (0) no visual loss 4. Facial Palsy: (0) normal symmetrical movement 5a. Motor Arm Left: (0) no drift 5b. Motor Arm Right: (0) no drift 6a. Motor Leg Left: (0) no drift 6b. Motor Leg Right: (0) no drift 7. Limb Ataxia: (0) absent 8. Sensory: (0) normal 9. Best Language: (0) no aphasia 10. Dysarthria: (0) normal 11. Extinction/Inattention: (0) no abnormality - Medical Decision Making Patient has no further symptoms he had a long discussion regarding the findings I did discuss the case also with Dr. Kelly. Patient does not wish to be transferred for inpatient evaluated at this time he will be discharged with follow-up as planned of note he did have a "twinge" possible palpitations on initial onset he states. Is is not elucidated earlier. He has no further symptoms he will follow-up I did discuss the return parameters with him. - EKG Data -: EKG Interpreted by Me EKG shows normal: sinus rhythm (Sinus rhythm left exodeviation rate was 78. Interval 150 to QRS 80 QT/ QTC 376/428) Past Medical History Past Medical History: Asthma, CVA/TIA, Diabetes Mellitus, GERD/Reflux, Hyperlipidemia, Hypertension, Osteoarthritis (OA) Additional Past Medical History / Comment(s): Pt recently admitted to [facility] 03/13/18 with difficulty speaking-TIA, NIDDM type II, gastric ulcer years ago, passed kidney stone, has gallstones, chronic back pain with herniated discs, History of Any Multi-Drug Resistant Organisms: None Reported Past Surgical History: Back Surgery Additional Past Surgical History / Comment(s): 04/03/18 Arch study, low back surgery, bilateral cataract removal with lens implants, Past Anesthesia/Blood Transfusion Reactions: No Reported Reaction Past Psychological History: No Psychological Hx Reported Smoking Status: Never smoker Past Alcohol Use History: None Reported Past Drug Use History: None Reported - Past Family History Mother Family Medical History: CVA/TIA, Diabetes Mellitus, Myocardial Infarction (UT) Additional Family Medical History / Comment(s): Mother had a UT in her 40s. She had a CVA. She lived to be 72 yrs. old. Father Family Medical History: CVA/TIA Additional Family Medical History / Comment(s): Father had a CVA and was an invalid for 15 yrs. Course Vital Signs 01/15/19 15:14 Temperature 98.1 F Pulse Rate 86 Respiratory 16 Rate Blood Pressure 145/87 O2 Sat by Pulse 97 Oximetry - Reevaluation(s) Reevaluation #1: 01/15/19 18:22 Reevaluation patient reveals no further symptoms. This was done several times throughout the stay. 01/15/19 18:30 I did review the workup done on the last admission was very extensive including MRI echo EEG carotid duplex scans. Negligible findings. Please see the complete admission record Disposition Clinical Impression: TIA (transient ischemic attack), Chest pain, Dehydration Disposition: ADMITTED IP TO THIS [facility] Condition: Good Instructions (If sedation given, give patient instructions): Transient Ischemic Attack (ED), Dehydration (ED) Is patient prescribed a controlled substance at d/c from ED?: No Referrals: Rama Putnam MD [Primary Care Provider] - 1-2 days
[2019-01-15 16:18] LABS: Basophils # (A) 0.1 k/uL (0-0.2); Basophils % (A) 1 %; Eosinophils # (A) 0.2 k/uL (0-0.7); Eosinophils % (A) 2 %; HGB 17.9 gm/dL (13.0-17.5); Lymphocytes # (A) 1.3 k/uL (1.0-4.8); Lymphocytes % (A) 15 %; MCH 30.9 pg (25.0-35.0); MCHC 34.5 g/dL (31.0-37.0); MCV 89.7 fL (80.0-100.0); Mean Platelet Volume 6.6; Monocytes # (A) 0.5 k/uL (0-1.0); Monocytes % (A) 5 %; Neutrophils # (A) 6.8 k/uL (1.3-7.7); Neutrophils % (A) 75 %; Platelet Count 189 k/uL (150-450); RBC 5.79 m/uL (4.30-5.90); RDW 13.6 % (11.5-15.5)
[2019-01-15 16:24] LABS: INR 0.9 (<1.2); Partial Thromboplastin Time 26.4 sec (22.0-30.0); Prothrombin Time 9.9 sec (9.0-12.0)
[2019-01-15 16:30] LABS: Albumin 4.4 g/dL (3.5-5.0); Calcium 9.9 mg/dL (8.4-10.2); Potassium 4.3 mmol/L (3.5-5.1); Total Bilirubin 0.8 mg/dL (0.2-1.3)
--- NOTE | 2019-01-15 16:35 | CT ---
EXAMINATION TYPE: CT brain wo con DATE OF EXAM: 01/15/2019 COMPARISON: 01/04/2019 HISTORY: Inability to verbalized thoughts CT DLP: 1083.4 mGycm Automated exposure control for dose reduction was used. FINDINGS: There is mild diffuse cerebral cortical atrophy. There is no mass effect nor midline shift. There is no sign of intracranial hemorrhage. There is no evidence of cerebral edema. Calvarium is intact. IMPRESSION: MILD ATROPHY. NO ACUTE INTRACRANIAL ABNORMALITY. NO CHANGE.
--- NOTE | 2019-01-15 17:01 | XR ---
EXAMINATION TYPE: XR chest 2V DATE OF EXAM: 01/15/2019 COMPARISON: 01/04/2019 HISTORY: Altered mental status TECHNIQUE: Frontal and lateral views of the chest are obtained. FINDINGS: There is a small area of linear infiltrate right lower lobe and also left midlung. Heart a nd mediastinum are normal. There are no hilar masses. There is no pleural effusion. IMPRESSION: Minimal pulmonary infiltrates or atelectasis unchanged compared to old exam. Normal hear t. No heart failure.
[2019-01-15 18:46] VITALS: BP 139/80; PULSE 74; RESP 18
== END 2019-01-15 18:46 | disposition other institution (70) ==
LOC: EC 15:10
DX: G45.9 Transient cerebral ischemic attack, unspecified (principal); R07.9 Chest pain, unspecified; E86.0 Dehydration; I10 Essential (primary) hypertension; E11.9 Type 2 diabetes mellitus without complications; J45.909 Unspecified asthma, uncomplicated; Z82.3 Family history of stroke; Z79.82 Long term (current) use of aspirin; Z79.84 Long term (current) use of oral hypoglycemic drugs; Z79.890 Hormone replacement therapy; Z79.51 Long term (current) use of inhaled steroids; Z79.899 Other long term (current) drug therapy; Z88.8 Allergy status to other drugs, medicaments and biological substances
CPT/HCPCS: 36415; 70450; 71046; 80053; 82550; 84484; 85025; 85610; 85730; 93005; 99285

== ENCOUNTER → 2019-04-01 | Outpatient (CLI) | payer MEDICARE ==
--- NOTE | 2019-04-01 08:59 | MR ---
"EXAMINATION TYPE: MR angio head wo con DATE OF EXAM: 04/01/2019 COMPARISON: CTA head March 13, 2018 HISTORY: Transient cerebral ischemic attack, aphasia, benedict, speech difficulty TECHNIQUE: Time of flight images focusing on the [place] of [place] were performed without contrast.. 2-D and 3-D postprocessing imaging is performed. FINDINGS: There is a codominant vertebrobasilar system redemonstrated. Vertebral arteries are patent to basilar junction. There is short segment linear hypointensity at basilar artery origin images 39 t hrough 41. Hypoplastic bilateral posterior to indicating arteries are demonstrated. No significant fo jacinta stenosis or aneurysmal change in the anterior circulation. There is tiny short segment anterior communicating artery near image 99. There is some tortuous cours e to the distal internal carotid arteries bilaterally. There is no significant focal stenosis or aneu rysmal change in the anterior circulation. IMPRESSION: No aneurysmal change or significant stenosis at level of [place] of [place]. 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 Consider repeat CTA or dire ct catheter angiogram to further evaluate. A Yellow level critical message alert has been initiated for Ranjit Nicholson DO via the [employer] 36 [phone] | Critical Results System on 04/01/2019 8:57 AM. This message alert has been sent to Ranjit Nicholson DO via the preferences provided by the clinician for the receipt of Radiology Critical Findings. Nd ssage ID [id number]."
== END ==
LOC: RADMRIMAIN 06:53
PROVIDERS: ATTEND Psychiatry & Neurology Neurology
DX: G45.9 Transient cerebral ischemic attack, unspecified (principal); R13.0 Aphagia; R51 Headache; R47.9 Unspecified speech disturbances
CPT/HCPCS: 70544

== ENCOUNTER → 2020-01-12 | Outpatient (CLI) | payer MEDICARE | END | disposition home or self-care (01) | LOC: LABWHC1 08:28 | PROVIDERS: ATTEND Psychiatry & Neurology Neurology | DX: M79.10 Myalgia, unspecified site (principal) | CPT/HCPCS: 36415; 82550; 85652 ==

== ENCOUNTER → 2020-01-27 | Outpatient (CLI) | payer MEDICARE | END | disposition home or self-care (01) | LOC: LABWHC1 13:30 | PROVIDERS: ATTEND Psychiatry & Neurology Neurology | DX: R74.8 Abnormal levels of other serum enzymes (principal) | CPT/HCPCS: 36415; 82550 ==

== ENCOUNTER → 2020-01-31 | Outpatient (CLI) | payer MEDICARE ==
--- NOTE | 2020-01-31 18:01 | US ---
EXAMINATION TYPE: US venous doppler duplex LE DATE OF EXAM: 01/31/2020 2:12 PM COMPARISON: NONE CLINICAL HISTORY: 79-year-old male I82.503 DVT. Left upper calf pain and knee swelling 2 weeks ago, b ut patient stated symptoms have subsided now. SIDE PERFORMED: left TECHNIQUE: The lower extremity deep venous system is examined utilizing real time linear array sonog drea with graded compression, doppler sonography and color-flow sonography. FINDINGS: VESSELS IMAGED: Common Femoral Vein Deep Femoral Vein Greater Saphenous Vein * Femoral Vein Popliteal Vein Small Saphenous Vein * Proximal Calf Veins (* superficial vessels) Left Leg: Negative for DVT. Echogenic wall changes are noted in upper Small Saphenous Vein, however, this vein is patent and compresses. IMPRESSION: 1. No evidence for DVT within the left lower extremity imaged from the groin to the upper calf. 2. Some mural based echogenic nodularity within the upper small saphenous vein suggests some minimal nonocclusive chronic SVT.
== END | disposition home or self-care (01) ==
LOC: RADUSWWP 13:41
PROVIDERS: ATTEND Psychiatry & Neurology Neurology
DX: I87.8 Other specified disorders of veins (principal)

== ENCOUNTER → 2020-02-28 | Outpatient (CLI) | payer MEDICARE | END | disposition home or self-care (01) | LOC: LABWHC1 09:40 | PROVIDERS: ATTEND Psychiatry & Neurology Neurology | DX: E11.42 Type 2 diabetes mellitus with diabetic polyneuropathy (principal); G47.19 Other hypersomnia; E78.5 Hyperlipidemia, unspecified; G45.9 Transient cerebral ischemic attack, unspecified; G25.0 Essential tremor; R53.1 Weakness | CPT/HCPCS: 36415; 82550 ==

== ENCOUNTER 2023-03-27 03:32 | Observation (INO) | payer MEDICARE ==
[2023-03-27 04:04] LABS: Basophils % (A) 0 %; Eosinophils # (A) 0.3 k/uL (0-0.7); Eosinophils % (A) 3 %; HGB 16.8 gm/dL (13.0-17.5); Lymphocytes # (A) 2.4 k/uL (1.0-4.8); Lymphocytes % (A) 26 %; MCH 31.3 pg (25.0-35.0); MCHC 34.3 g/dL (31.0-37.0); MCV 91.2 fL (80.0-100.0); Mean Platelet Volume 7.6; Monocytes # (A) 0.5 k/uL (0-1.0); Monocytes % (A) 6 %; Neutrophils % (A) 64 %; Platelet Count 178 k/uL (150-450); RBC 5.37 m/uL (4.30-5.90); RDW 13.4 % (11.5-15.5); WBC 9.4 k/uL (3.8-10.6)
[2023-03-27 04:09] LABS: INR 1.1 (<1.2); Partial Thromboplastin Time 26.6 sec (22.0-30.0); Prothrombin Time 11.9 sec (10.0-12.5)
[2023-03-27 04:43] LABS: ALT 23 U/L (4-49); AST 22 U/L (17-59); African American GFR (CKD) 59 (>60 ml/min/1.73 sqM); Alkaline Phosphatase 82 U/L (38-126); Anion Gap 9 mmol/L; Blood Urea Nitrogen 19 mg/dL (9-20); Calcium 9.8 mg/dL (8.4-10.2); Carbon Dioxide 24 mmol/L (22-30); Chloride 104 mmol/L (98-107); Glucose 117 mg/dL (74-99); Magnesium 1.8 mg/dL (1.6-2.3); Non-African American GFR(CKD) 51 (>60 ml/min/1.73 sqM); Potassium 4.3 mmol/L (3.5-5.1); Sodium 137 mmol/L (137-145); Total Bilirubin 0.8 mg/dL (0.2-1.3); Total Protein 6.6 g/dL (6.3-8.2)
[2023-03-27] MEDS ORDERED: MAG HYDROX/AL HYDROX/SIMETH 30 ML, HYOSCYAMINE ELIXIR 10 ML, LIDOCAINE VISCOUS 2% 10 ML PO STA ×3 (04:51)
--- NOTE | 2023-03-27 05:03 | XR ---
EXAM: XR Chest, 2 Views CLINICAL HISTORY: ITS.REASON XR Reason: Chest Pain TECHNIQUE: Frontal and lateral views of the chest. COMPARISON: 01/15/2019 FINDINGS: Lungs: Unremarkable. No consolidation. Pleural space: Unremarkable. No pneumothorax. Heart: Unremarkable. No cardiomegaly. Mediastinum: Unremarkable. Normal mediastinal contour. Bones/joints: Unremarkable. No acute fracture. IMPRESSION: No acute pulmonary process.
--- NOTE | 2023-03-27 05:04 | ED ---
Chest Pain HPI - General Chief Complaint: Chest Pain Stated Complaint: Chest pain Time Seen by Provider: 03/27/23 03:40 Source: patient, family Mode of arrival: ambulatory Limitations: no limitations - History of Present Illness Initial Comments: 82-year-old male with past mental history of coronary artery disease status post 4 stents, diabetes, CVA, hypertension and presents emergency department reporting chest pain. States he awoke from sleep around 2 AM with chest pain. He describes it as a pressure sensation. He did take 2 of his nitro with r elief. States the pain is almost entirely gone at this time. He denies associated shortness of breath. No calf pain or swelling. No nausea or vomiting. No ripping or tearing sensation to his back. No other alleviating, precipitating or modifying factors - Related Data Home Medications Medication Instructions Recorded Confirmed Aspirin EC [Ecotrin Low Dose] 81 mg PO DAILY 01/02/18 03/27/23 Testosterone Cypionate 200 mg IM Q14D 03/13/18 03/27/23 [Depo-Testosterone] Atorvastatin [Lipitor] 40 mg PO HS 03/27/23 03/27/23 Gabapentin [Neurontin] 300 mg PO HS 03/27/23 03/27/23 amLODIPine [Norvasc] 5 mg PO DAILY 03/27/23 03/27/23 carvediloL [Coreg] 12.5 mg PO BID 03/27/23 03/27/23 glipiZIDE [Glucotrol] 5 mg PO DAILY 03/27/23 03/27/23 lisinopriL [Zestril] 20 mg PO BID 03/27/23 03/27/23 Previous Rx's Medication Instructions Recorded Clopidogrel [Plavix] 75 mg PO DAILY tab 03/14/18 Allergies Allergy/AdvReac Type Severity Reaction Status Date / Time losartan Allergy Swelling Verified 03/27/23 06:33 Review of Systems ROS Statement: Those systems with pertinent positive or pertinent negative responses have been documented in the HPI. ROS Other: All systems not noted in ROS Statement are negative. Past Medical History Past Medical History: Asthma, CVA/TIA, Diabetes Mellitus, GERD/Reflux, Hyperlipidemia, Hypertension, Osteoarthritis (OA) Additional Past Medical History / Comment(s): Pt recently admitted to [facility] 03/13/18 with difficulty speaking-TIA, NIDDM type II, gastric ulcer years ago, passed kidney stone, has gallstones, chronic back pain with herniated discs, History of Any Multi-Drug Resistant Organisms: None Reported Past Surgical History: Back Surgery Additional Past Surgical History / Comment(s): 04/03/18 Arch study, low back surgery, bilateral cataract removal with lens implants, Past Anesthesia/Blood Transfusion Reactions: No Reported Reaction Past Psychological History: No Psychological Hx Reported Smoking Status: Never smoker Past Alcohol Use History: None Reported Past Drug Use History: None Reported - Past Family History Mother Family Medical History: CVA/TIA, Diabetes Mellitus, Myocardial Infarction ([place]) Additional Family Medical History / Comment(s): Mother had a [place] in her 40s. She had a CVA. She lived to be 72 yrs. old. Father Family Medical History: CVA/TIA Additional Family Medical History / Comment(s): Father had a CVA and was an invalid for 15 yrs. General Exam Limitations: no limitations General appearance: alert, in no apparent distress Head exam: Present: atraumatic, normocephalic, normal inspection Eye exam: Present: normal appearance, PERRL, EOMI. Absent: scleral icterus, conjunctival injection, periorbital swelling ENT exam: Present: normal exam, mucous membranes moist Neck exam: Present: normal inspection. Absent: tenderness, meningismus, lymphadenopathy Respiratory exam: Present: normal lung sounds bilaterally. Absent: respiratory distress, wheezes, rales, rhonchi, stridor Cardiovascular Exam: Present: regular rate, normal rhythm, normal heart sounds. Absent: systolic murmur, diastolic murmur, rubs, gallop, clicks GI/Abdominal exam: Present: soft, normal bowel sounds. Absent: distended, tenderness, guarding, rebound, rigid Extremities exam: Present: normal inspection, full ROM, normal capillary refill. Absent: tenderness, pedal edema, joint swelling, calf tenderness Back exam: Present: normal inspection Neurological exam: Present: alert, oriented X3, CN II-XII intact Psychiatric exam: Present: normal affect, normal mood Skin exam: Present: warm, dry, intact, normal color. Absent: rash Course Vital Signs 03/27/23 03/27/23 03/27/23 03:35 03:45 05:09 Temperature 98.2 F Pulse Rate 63 64 56 L Respiratory 18 16 16 Rate Blood Pressure 133/87 139/67 115/62 O2 Sat by Pulse 96 96 96 Oximetry Chest Pain MDM - MDM Was pt. sent in by a medical professional or institution (, LORETTA, ELEVATOR OPERATOR, urgent care, hospital, or fci...) When possible be specific @ -No Did you speak to anyone other than the patient for history (EMS, parent, family, police, friend...)? What history was obtained from this source @ -No Did you review nursing and triage notes (agree or disagree)? Why? @ -I reviewed and agree with nursing and triage notes Were old charts reviewed (outside hosp., previous admission, EMS record, old EKG, old radiological studies, urgent care reports/EKG's, fci records)? Report findings @ -No old charts were reviewed Differential Diagnosis (chest pain, altered mental status, abdominal pain women, abdominal pain men, vaginal bleeding, weakness, fever, dyspnea, syncope, headache, dizziness, GI bleed, back pain, seizure, CVA, palpatations, mental health, musculoskeletal)? @ -Differential Chest Pain: Stable Angina, Unstable Angina, STEMI, NSTEMI Aortic Dissection, Pneumothorax, Musculoskeletal, Esophageal Spasm GERD, Cholecystitis, Pancreatitis, Zoster, this is not meant to be an all-inclusive list. EKG interpreted by me (3pts min.). @ -Yes and demonstrates sinus rhythm with rate of 61. NE interval 164. QRS 94. QTC of 413. No acute ST segment elevations or depressions X-rays interpreted by me (1pt min.). @ -Yes and demonstrates no acute process CT interpreted by me (1pt min.). @ -None done U/S interpreted by me (1pt. min.). @ -None done What testing was considered but not performed or refused? (CT, X-rays, U/S, labs)? Why? @ -None What meds were considered but not given or refused? Why? @ -None Did you discuss the management of the patient with other professionals (professionals i.e. LORETTA Martin, ELEVATOR OPERATOR, lab, RT, psych nurse, social work professor, grey inspector, teacher, custody officer, outpatient case manager)? Give summary @ -Spoke with Dr. kelly for admission Was smoking cessation discussed for >3mins.? @ -No Was critical care preformed (if so, how long)? @ -No Were there social determinants of health that impacted care today? How? (Homelessness, low income, unemployed, alcoholism, drug addiction, transportation, low edu. Level, literacy, decrease access to med. care, shelter, rehab)? @ -No Was there de-escalation of care discussed even if they declined (Discuss DNR or withdrawal of care, Hospice)? DNR status @ -No What co-morbidities impacted this encounter? (DM, HTN, Smoking, COPD, CAD, Cancer, CVA, ARF, Chemo, Hep., AIDS, mental health diagnosis, sleep apnea, morbid obesity)? @ -Coronary artery disease Was patient admitted / discharged? Hospital course, mention meds given and route, prescriptions, significant lab abnormalities, going to OR and other pertinent info. @ -Admitted. On arrival patient was placed into room 18. Thorough history and physical exam is performed. Patient is pain-free. He is given an aspirin and a GI cocktail. Lab studies are conducted and the chest x-rays performed. Results are discussed with the patient. Recommended admission due to his history of coronary disease with chest pain relieved by nitro. Patient was agreeable to this. Spoke with Dr. Kelly who agreed to admit the patient. Undiagnosed new problem with uncertain prognosis? @ -Yes Drug Therapy requiring intensive monitoring for toxicity (Heparin, Nitro, Insulin, Cardizem)? @ -No Were any procedures done? @ -No Diagnosis/symptom? @ -Acute chest pain, possible ACS, history of atherosclerotic coronary artery disease Acute, or Chronic, or Acute on Chronic? @ -Acute Uncomplicated (without systemic symptoms) or Complicated (systemic symptoms)? @ -Complicated Side effects of treatment? @ -No Exacerbation, Progression, or Severe Exacerbation? @ -No Poses a threat to life or bodily function? How? (Chest pain, [place], [place], pneumonia, PE, COPD, DKA, ARF, appy, cholecystitis, CVA, Diverticulitis, Homicidal, Suicidal, threat to staff... and all critical care pts) @ -Yes patient has chest pain Disposition Clinical Impression: Chest pain Disposition: ADMITTED IP TO THIS [facility] Condition: Stable Is patient prescribed a controlled substance at d/c from ED?: No Time of Disposition: 05:47 Decision to Admit Reason: Admit from EC Decision Date: 03/27/23 Decision Time: 05:47
[2023-03-27] MEDS ORDERED: ASPIRIN 81 MG PO STA (05:48)
[2023-03-27] MEDS ORDERED: NALOXONE 0.4 MG/ML 1 ML VIAL IV PRN (05:50)
[2023-03-27] MEDS ORDERED: HEPARIN SODIUM 1,000 UN/ML (10ML VL) IV ONE (09:11)
[2023-03-27] MEDS ORDERED: HEPARIN SODIUM 1,000 UN/ML (10ML VL) IV PRN (09:11)
[2023-03-27] MEDS ORDERED: ASPIRIN 325 MG TAB PO STA (09:12)
[2023-03-27] MEDS ORDERED: ALPRAZolam 0.5 MG TAB PO PRN (09:12)
[2023-03-27] MEDS ORDERED: ALPRAZolam 0.25 MG TAB PO PRN (09:12)
[2023-03-27] MEDS ORDERED: NITROGLYCERIN SL TABS 0.4 MG TAB SUBLINGUAL PRN (09:12)
[2023-03-27] MEDS ORDERED: ATORVASTATIN 80 MG TAB PO STA (09:12)
[2023-03-27] MEDS: lisinopriL 20 MG TAB PO SCH ×2 (09:28→20:01)
[2023-03-27] MEDS: amLODIPine 5 MG TAB PO SCH (09:28)
[2023-03-27] MEDS: carvediloL 12.5 MG TAB PO SCH ×2 (09:28→20:02)
[2023-03-27] MEDS: CLOPIDOGREL 75 MG TAB PO SCH (09:28)
[2023-03-27] MEDS: SODIUM CHLORIDE 0.9% 1,000 ML IV SCH ×2 (09:31→21:34)
[2023-03-27] MEDS: HEPARIN SOD,PORK IN 0.45% NACL 25,000 UNIT in 0.45% NACL 1 250ML.BAG IV SCH (09:33)
--- NOTE | 2023-03-27 11:17 | P.CRDCN ---
History of Present Illness Consult date: 03/27/23 Consult reason: chest pain History of present illness: History of present illness: This is an 82 year old male patient follows with cardiology in [place] with past medical history of coronary artery disease status post 4 stents, chronic kidney disease, hypertension, dyslipidemia, statin intolerance, TIA. Patient has followed in the office in [address] Clemons but receives most of his cardiac care in [place]. We have been asked to evaluate the patient for chest pain. Patient presented to the hospital due to chest pain that started at 2 AM and woke him from sleep. He took 2 nitroglycerin with improvement of his pain. He denies having any pain at this time. He denied having any shortness of breath. No nausea or vomiting. EKG sinus rhythm with no acute ST changes. Chest x-ray: No acute process CBC is unremarkable. INR 1.1. Electrolytes normal. Creatinine 1.3. Troponin negative 3. Blood sugar 117. Magnesium 1.8. Liver function tests are normal. Home cardiac medications: Amlodipine 5 mg daily, aspirin 81 mg daily, a torvastatin 40 mg at bedtime, Coreg 12.5 mg twice daily, Plavix 75 mg daily, lisinopril 20 mg twice daily. Echocardiogram performed 2018 revealed EF of 55-60%, mild concentric left ventricular hypertrophy, mild aortic valve sclerosis, mild mitral regurgitation, mild tricuspid regurgitation, no pulmonary hypertension. History of circumflex stent 4.0 x 26 and LAD 3.0 x 38 on 05/02/2020 Review Of Systems: At the time of my evaluation: Constitutional: No fever, no chills. No weakness, fatigue or lethargy. EENT: No headache. No dizziness. Lungs: No shortness of breath, cough, no sputum production. No wheezing. Cardiovascular: No chest pain, no lower extremity edema. No palpitations. No paroxysmal nocturnal dyspnea. No orthopnea. No lightheadedness or dizziness. No syncopal episodes. Abdominal: No abdominal pain. No nausea, vomiting. No diarrhea. No bloody or tarry stools. Musculoskeletal: No myalgias. No muscle weakness, no frequent falls. Integumentary: No wounds. No rash. No unusual bruising. Neurologic: No aphasia. No facial droop. No change in mentation. Physical examination: Gen: This is an 82-year-old male. He is resting on ER stretcher and a ppears to be comfortable and in no acute distress. VS: reviewed HEENT: Head is atraumatic, normocephalic. Pupils equal, round. Sclerae is anicteric. NECK: Supple. No JVD. . LUNGS: Clear to auscultation. No wheezes or rhonchi. No intercostal retractions. HEART: Regular rate and rhythm. No murmur. ABDOMEN: Soft No tenderness. EXTREMITIES: No pedal edema. No calf tenderness. NEUROLOGICAL: Patient is awake, alert and oriented x3. Assessment: Chest pain, rule out new coronary artery disease Circumflex coronary artery disease with previous stenting Chronic kidney disease Hypertension Dyslipidemia Statin intolerance TIA Plan:Resume patient's home cardiac medications Start IV fluids 0.9 normal saline at 75 mL per hour Start patient on heparin drip Schedule patient for cardiac catheterization tomorrow with Dr. DENVER Colorado Obtain 2-D echocardiogram and Doppler study to assess cardiac structure and function Further recommendations to follow based upon clinical course Thank you kindly for this consultation. Nurse practitioner note has been reviewed, I agree with documented findings and plan of care. Patient was seen and examined. Past Medical History Past Medical History: Asthma, CVA/TIA, Diabetes Mellitus, GERD/Reflux, Hyperlipidemia, Hypertension, Osteoarthritis (OA) Additional Past Medical History / Comment(s): Pt recently admitted to [facility] 03/13/18 with difficulty speaking-TIA, NIDDM type II, gastric ulcer years ago, passed kidney stone, has gallstones, chronic back pain with herniated discs, History of Any Multi-Drug Resistant Organisms: None Reported Past Surgical History: Back Surgery Additional Past Surgical History / Comment(s): 04/03/18 Arch study, low back surgery, bilateral cataract removal with lens implants, Past Anesthesia/Blood Transfusion Reactions: No Reported Reaction Past Psychological History: No Psychological Hx Reported Smoking Status: Never smoker Past Alcohol Use History: None Reported Past Drug Use History: None Reported - Past Family History Mother Family Medical History: CVA/TIA, Diabetes Mellitus, Myocardial Infarction ([place]) Additional Family Medical History / Comment(s): Mother had a [place] in her 40s. She had a CVA. She lived to be 72 yrs. old. Father Family Medical History: CVA/TIA Additional Family Medical History / Comment(s): Father had a CVA and was an invalid for 15 yrs. Medications and Allergies Home Medications Medication Instructions Recorded Confirmed Type Aspirin EC [Ecotrin Low Dose] 81 mg PO DAILY 01/02/18 03/27/23 History Testosterone Cypionate 200 mg IM Q14D 03/13/18 03/27/23 History [Depo-Testosterone] Clopidogrel [Plavix] 75 mg PO DAILY tab 03/14/18 03/27/23 Rx Atorvastatin [Lipitor] 40 mg PO HS 03/27/23 03/27/23 History Gabapentin [Neurontin] 300 mg PO HS 03/27/23 03/27/23 History amLODIPine [Norvasc] 5 mg PO DAILY 03/27/23 03/27/23 History carvediloL [Coreg] 12.5 mg PO BID 03/27/23 03/27/23 History glipiZIDE [Glucotrol] 5 mg PO DAILY 03/27/23 03/27/23 History lisinopriL [Zestril] 20 mg PO BID 03/27/23 03/27/23 History Allergies Allergy/AdvReac Type Severity Reaction Status Date / Time losartan Allergy Swelling Verified 03/27/23 06:33 Physical Exam Vitals: Vital Signs Temp Pulse Resp BP Pulse Ox 03/27/23 08:15 97.6 F 61 17 137/76 96 03/27/23 05:09 56 L 16 115/62 96 03/27/23 03:45 64 16 139/67 96 03/27/23 03:35 98.2 F 63 18 133/87 96 Intake and Output 03/26/23 03/27/23 03/27/23 22:59 06:59 14:59 Other: Weight 81.647 kg Results 03/27/23 03:46 03/27/23 03:46 Cardiac Enzymes 03/27/23 03/27/23 03/27/23 Range/Units 03:46 03:46 06:05 AST 22 (17-59) U/L Troponin I 0.012 0.013 (0.000-0.034) ng/mL Coagulation 03/27/23 Range/Units 03:46 PT 11.9 (10.0-12.5) sec APTT 26.6 (22.0-30.0) sec CBC 03/27/23 Range/Units 03:46 WBC 9.4 (3.8-10.6) k/uL RBC 5.37 (4.30-5.90) m/uL Hgb 16.8 (13.0-17.5) gm/dL Hct 49.0 (39.0-53.0) % Plt Count 178 (150-450) k/uL Comprehensive Metabolic Panel 03/27/23 Range/Units 03:46 Sodium 137 (137-145) mmol/L Potassium 4.3 (3.5-5.1) mmol/L Chloride 104 (98-107) mmol/L Carbon Dioxide 24 (22-30) mmol/L BUN 19 (9-20) mg/dL Creatinine 1.30 H (0.66-1.25) mg/dL Glucose 117 H (74-99) mg/dL Calcium 9.8 (8.4-10.2) mg/dL AST 22 (17-59) U/L ALT 23 (4-49) U/L Alkaline Phosphatase 82 (38-126) U/L Total Protein 6.6 (6.3-8.2) g/dL Albumin 4.0 (3.5-5.0) g/dL Current Medications Generic Name Dose Route Start Last Admin Trade Name Freq PRN Reason Stop Dose Admin Amlodipine Besylate 5 mg 03/27/23 09:15 Amlodipine 5 Mg Tab PO DAILY [facility] Atorvastatin Calcium 40 mg 03/27/23 21:00 Atorvastatin 40 Mg Tab PO HS [facility] Carvedilol 12.5 mg 03/27/23 09:15 Carvedilol 12.5 Mg Tab PO BID [facility] Clopidogrel Bisulfate 75 mg 03/27/23 09:15 Clopidogrel 75 Mg Tab PO DAILY [facility] Lisinopril 20 mg 03/27/23 09:15 Lisinopril 20 Mg Tab PO BID [facility] Naloxone HCl 0.2 mg 03/27/23 05:50 Naloxone 0.4 Mg/Ml 1 Ml Vial IV Q2M PRN Opioid Reversal Non-Formulary Medication 81 mg 03/27/23 09:15 Aspirin Ec PO DAILY [facility] Intake and Output 03/26/23 03/27/23 03/27/23 22:59 06:59 14:59 Other: Weight 81.647 kg 03/27/23 03:46 03/27/23 03:46
--- NOTE | 2023-03-27 12:46 | CA ---
Transthoracic Echo Report Name: Raphael Rhodes Age: 82 Gender: M : 1940 Exam Date: 03/27/2023 10:49 Exam Location: [facility] Ht (in): 68 Wt (lb): 180 Ordering Physician: Veronica Stacy Attending/Referring Phys: [id number], Tawanna Director Of [employer] Fifi Figueroa RDCS Procedure CPT: Indications: LVF Cardiac Hx: Technical Quality: Fair Contrast 1: Total Dose (mL): Contrast 2: Total Dose (mL): MEASUREMENTS (Male / Female) Normal Values 2D ECHO LV Diastolic Diameter PLAX 3.3 cm 4.2 - 5.9 / 3.9 - 5.3 cm LV Systolic Diameter PLAX 2.3 cm IVS Diastolic Thickness 1.4 cm 0.6 - 1.0 / 0.6 - 0.9 cm LVPW Diastolic Thickness 1.5 cm 0.6 - 1.0 / 0.6 - 0.9 cm LV Relative Wall Thickness 0.9 RV Internal Dim ED PLAX 3.3 cm LVOT Diameter 1.5 cm LA Volume 73.0 cm??? 18 - 58 / 22 - 52 cm??? LA Volume Index 36.6 cm???/m??? 16 - 28 cm???/m??? M-MODE Aortic Root Diameter MM 3.2 cm LA Systolic Diameter MM 4.3 cm LA Ao Ratio MM 1.3 AV Cusp Separation MM 1.7 cm DOPPLER AV Peak Velocity 180.8 cm/s AV Peak Gradient 13.1 mmHg AV Mean Velocity 143.8 cm/s AV Mean Gradient 8.6 mmHg AV Velocity Time Integral 41.0 cm LVOT Peak Velocity 106.0 cm/s LVOT Peak Gradient 4.5 mmHg LVOT Velocity Time Integral 25.1 cm LVOT Stroke Volume 46.0 cm??? LVOT Stroke Volume Index 23.5 ml/m??? LVOT Cardiac Index 1382.8 cm???/min???m??? AV Area Cont Eq vti 1.1 cm??? AV Area Cont Eq pk 1.1 cm??? MV Area PHT 2.6 cm??? Mitral E Point Velocity 92.5 cm/s Mitral A Point Velocity 118.4 cm/s Mitral E to A Ratio 0.8 MV Deceleration Time 294.2 ms MV E' Velocity 4.7 cm/s Mitral E to MV E' Ratio 19.8 TR Peak Velocity 216.0 cm/s TR Peak Gradient 18.7 mmHg Right Ventricular Systolic Press 23.7 mmHg FINDINGS Left Ventricle Moderately increased left ventricular wall thickness. Left ventricular cavity size normal. Normal left ventricular systolic function with no obvious regional wall motion abnormalities. Left ventricular ejection fraction is estimated at 55-60%. Right Ventricle Normal right ventricular size and function. Right ventricular systolic pressure within normal limits. Right Atrium Normal right atrial size. Left Atrium Moderately increased left atrial volume. Mildly increased left atrial area. Mitral Valve Structurally normal mitral valve. Mitral valve thickened. Mild mitral annular calcification. Mild mitral regurgitation. Aortic Valve No aortic valve stenosis or regurgitation. Aortic valve sclerosis. Tricuspid Valve Structurally normal tricuspid valve. Mild tricuspid regurgitation. Pulmonic Valve Structurally normal pulmonic valve. Trace pulmonic regurgitation. Pericardium No pericardial effusion. Aorta Normal size aortic root and proximal ascending aorta. CONCLUSIONS Normal left ventricle size and systolic function with [id number] concentric LVH. Right ventricle is normal. No pulmonary hypertension. There is mitral annular calcification and aortic valve sclerosis without restriction. There is mild mitral and tricuspid insufficiency. No pericardial effusion Previewed by: Dr. Salazar Colorado MD (Electronically Signed) Final Date: 27 March 2023 12:45
--- NOTE | 2023-03-27 17:46 | P.HPIM ---
History of Present Illness H&P Date: 03/27/23 Raphael Rhodes, is an 82-year-old male who presented to [facility] emergency room with a chief complaint of chest pain, patient describes a pressure sensation in the middle of his chest that started at 2 AM and walk him up he took 2 nitroglycerin at home and this improved his chest pain he denies any diaphoresis shortness of breath nausea or vomiting. He was evaluated in the emergency room vital examination on presentation revealed a temperature of 98.2 pulse 63 respiration 18 blood pressure 133/87 pulse ox 96% on room air Laboratory data reveals a white blood count of 9.4 hemoglobin 16.8 platelet count 178 sodium 137 potassium 4.3 chloride 104 CO2 24 BUN 19 creatinine 1.3 troponin level 0.012 Testing in the emergency room revealed EKG revealed sinus rhythm with left axis deviation, chest x-ray revealed no acute pulmonary process. Patient was admitted to medical floor for further evaluation and treatment Past medical history is significant for history of coronary artery disease with history of angioplasty with 4 stent placement in the past, history of hypertension, history of hyperlipidemia, history of chronic kidney disease, and history of TIA Past Medical History Past Medical History: Asthma, CVA/TIA, Diabetes Mellitus, GERD/Reflux, Hyperlipidemia, Hypertension, Osteoarthritis (OA) Additional Past Medical History / Comment(s): Pt recently admitted to [facility] 03/13/18 with difficulty speaking-TIA, NIDDM type II, gastric ulcer years ago, passed kidney stone, has gallstones, chronic back pain with herniated discs, History of Any Multi-Drug Resistant Organisms: None Reported Past Surgical History: Back Surgery Additional Past Surgical History / Comment(s): 04/03/18 Arch study, low back surgery, bilateral cataract removal with lens implants, Past Anesthesia/Blood Transfusion Reactions: No Reported Reaction Past Psychological History: No Psychological Hx Reported Smoking Status: Never smoker Past Alcohol Use History: None Reported Past Drug Use History: None Reported - Past Family History Mother Family Medical History: CVA/TIA, Diabetes Mellitus, Myocardial Infarction (AK) Additional Family Medical History / Comment(s): Mother had a AK in her 40s. She had a CVA. She lived to be 72 yrs. old. Father Family Medical History: CVA/TIA Additional Family Medical History / Comment(s): Father had a CVA and was an invalid for 15 yrs. Medications and Allergies Home Medications Medication Instructions Recorded Confirmed Type Aspirin EC [Ecotrin Low Dose] 81 mg PO DAILY 01/02/18 03/27/23 History Testosterone Cypionate 200 mg IM Q14D 03/13/18 03/27/23 History [Depo-Testosterone] Clopidogrel [Plavix] 75 mg PO DAILY tab 03/14/18 03/27/23 Rx Atorvastatin [Lipitor] 40 mg PO HS 03/27/23 03/27/23 History Gabapentin [Neurontin] 300 mg PO HS 03/27/23 03/27/23 History amLODIPine [Norvasc] 5 mg PO DAILY 03/27/23 03/27/23 History carvediloL [Coreg] 12.5 mg PO BID 03/27/23 03/27/23 History glipiZIDE [Glucotrol] 5 mg PO DAILY 03/27/23 03/27/23 History lisinopriL [Zestril] 20 mg PO BID 03/27/23 03/27/23 History Allergies Allergy/AdvReac Type Severity Reaction Status Date / Time losartan Allergy Swelling Verified 03/27/23 06:33 Physical Exam Vitals: Vital Signs Temp Pulse Pulse Resp BP BP Pulse Ox 03/27/23 14:10 98.2 F 62 16 129/73 96 03/27/23 13:35 98.2 F 57 L 17 107/71 99 03/27/23 12:10 98.0 F 60 17 141/80 96 03/27/23 09:38 97.7 F 68 18 135/81 97 03/27/23 08:15 97.6 F 61 17 137/76 96 03/27/23 05:09 56 L 16 115/62 96 03/27/23 03:45 64 16 139/67 96 03/27/23 03:35 98.2 F 63 18 133/87 96 Intake and Output 03/27/23 03/27/23 03/27/23 06:59 14:59 22:59 Intake Total 64.667 Balance 64.667 Intake: Intake, IV Titration 64.667 Amount Heparin Sod,Pork in 0.45% 64.667 NaCl 25,000 unit In 0.45 % NaCl 1 250ml.bag @ 12 UNITS/KG/HR 9.798 mls/hr IV .Q24H [facility] Rx#: [id number] Other: # Voids 1 Weight 81.647 kg In general patient is alert and oriented x 3 in no distress HEENT head normocephalic and atraumatic Neck is supple no JVD no goiter no lymphadenopathy no carotid bruit Chest examination is clear to auscultation no crackles no wheezing Cardiac exam reveals regular heart sounds S1 and S2 no gallops no murmurs Abdomen is soft nontender no organomegaly with normal bowel sounds Extremity exam reveals no edema no cyanosis or clubbing Neurological examination reveals no gross focal deficits Results CBC & Chem 7: 03/27/23 03:46 03/27/23 03:46 Labs: Abnormal Lab Results - Last 24 Hours (Table) 03/27/23 03/27/23 Range/Units 03:46 15:22 APTT 78.4 H (22.0-30.0) sec Creatinine 1.30 H (0.66-1.25) mg/dL Glucose 117 H (74-99) mg/dL Assessment and Plan Plan: Episode of chest pain in a 82-year-old male with multiple cardiac risk factors including previous history of coronary artery disease with history of 4 stent placement Underlying history of hypertension Underlying history of hyperlipidemia Underlying history of gwr-jeprafn-imodpcpye diabetes mellitus Underlying history of TIA Underlying history of osteoarthritis At this time patient is admitted to telemetry floor Serial EKG and cardiac enzymes ordered cardiology consultation requested Home medications reviewed and reordered Will follow closely
[2023-03-27] MEDS: GABAPENTIN 300 MG CAP PO SCH (20:02)
[2023-03-27] MEDS ORDERED: ATORVASTATIN 40 MG TAB PO SCH (21:00)
[2023-03-28] MEDS: lisinopriL 20 MG TAB PO SCH ×2 (06:21→19:51)
[2023-03-28] MEDS: amLODIPine 5 MG TAB PO SCH (06:21)
[2023-03-28] MEDS: CLOPIDOGREL 75 MG TAB PO SCH (06:21)
[2023-03-28] MEDS: ASPIRIN 81 MG PO SCH (06:21)
[2023-03-28] MEDS: carvediloL 12.5 MG TAB PO SCH ×2 (06:21→19:51)
[2023-03-28] MEDS ORDERED: HEPARIN SODIUM,PORCINE 10,000 UNIT in SODIUM CHLORIDE 0.9% 1,000 ML IRRIGATION PRN (07:00)
[2023-03-28] MEDS ORDERED: HEPARIN SODIUM,PORCINE (1 ML) 2,500 UNIT in SODIUM CHLORIDE 0.9% 250 ML IRRIGATION PRN (07:00)
[2023-03-28 07:09] LABS: Prothrombin Time 11.1 sec (10.0-12.5)
[2023-03-28 07:53] LABS: Glucose,Whole Blood 106 mg/dL (70-110)
[2023-03-28] MEDS ORDERED: VERAPAMIL 2.5 MG/ML 2 ML AMP ONE (08:40)
[2023-03-28] MEDS ORDERED: LIDOCAINE 1% INJ 10MG/ML (20 ML MDV) ONE (08:40)
[2023-03-28] MEDS ORDERED: IV FLUID CONTINUATION 300 ML IV ONE (09:00)
[2023-03-28] MEDS ORDERED: HEPARIN SODIUM 1,000 UN/ML (10ML VL) ONE (09:13)
[2023-03-28] MEDS ORDERED: DEXTROSE 50% SYRINGE 50 ML IVP PRN ×2 (09:16)
[2023-03-28] MEDS ORDERED: LIDOCAINE 1% INJ 10MG/ML (20 ML MDV) SQ ONE (09:40)
[2023-03-28] MEDS ORDERED: MIDAZOLAM 2 MG/2 ML VIAL IVP ONE (09:40)
[2023-03-28] MEDS ORDERED: VERAPAMIL SYRINGE (5 MG/10 ML) INTRAARTER ONE (09:41)
[2023-03-28] MEDS: HEPARIN SODIUM 1,000 UN/ML (10ML VL) IV ONE ×3 (09:43→10:35)
[2023-03-28] MEDS ORDERED: IV FLUID CONTINUATION 1,000 ML IV ONE (10:00)
[2023-03-28] MEDS ORDERED: IOPAMIDOL-370 100ML BTL INJ ONE ×2 (10:18→10:35)
[2023-03-28] MEDS ORDERED: CLOPIDOGREL 75 MG TAB PO ONE (10:33)
[2023-03-28] MEDS ORDERED: CLOPIDOGREL 75 MG TAB ONE (10:33)
[2023-03-28] MEDS: HEPARIN SOD,PORK IN 0.45% NACL 25,000 UNIT in 0.45% NACL 1 250ML.BAG IV SCH (10:39)
[2023-03-28] MEDS ORDERED: HYDROmorphone 0.5 MG/0.5 ML SYRINGE IVP ONE (10:45)
[2023-03-28 10:57] LABS: Basophils # (A) 0.05 X 10*3/uL (0.00-0.10); Basophils % (A) 0.5 %; Eosinophils # (A) 0.25 X 10*3/uL (0.04-0.35); Eosinophils % (A) 2.5 %; HCT 52.7 % (39.6-50.0); HGB 17.5 g/dL (13.0-17.0); Lymphocytes # (A) 2.49 X 10*3/uL (0.90-5.00); Lymphocytes % (A) 24.8 %; MCH 30.4 pg (27.0-32.0); MCHC 33.2 g/dL (32.0-37.0); MCV 91.7 FL (80.0-97.0); Monocytes # (A) 0.56 X 10*3/uL (0.20-1.00); Monocytes % (A) 5.6 %; NRBC Per 100 WBC 0 X 10*3/uL (0.00-0.01); Neutrophils # (A) 6.66 X 10*3/uL (1.80-7.70); Neutrophils % (A) 66.3 %; Platelet Count 180 X 10*3/uL (140-440); RBC 5.75 X 10*6/uL (4.40-5.60); RDW 13.4 % (11.5-14.5); WBC 10.04 X 10*3/uL (4.50-10.00)
--- NOTE | 2023-03-28 11:03 | P.PN ---
Subjective Progress Note Date: 03/28/23 History of present illness: This is an 82 year old male patient follows with cardiology in [place] with past medical history of coronary artery disease status post 4 stents, chronic kidney disease, hypertension, dyslipidemia, statin intolerance, TIA. Patient has followed in the office in [address] Clemons but receives most of his cardiac care in [place]. We have been asked to evaluate the patient for chest pain. Patient presented to the hospital due to chest pain that started at 2 AM and woke him from sleep. He took 2 nitroglycerin with improvement of his pain. He denies having any pain at this time. He denied having any shortness of breath. No nausea or vomiting. EKG sinus rhythm with no acute ST changes. Chest x-ray: No acute process CBC is unremarkable. INR 1.1. Electrolytes normal. Creatinine 1.3. Troponin negative 3. Blood sugar 117. Magnesium 1.8. Liver function tests are normal. Home cardiac medications: Amlodipine 5 mg daily, aspirin 81 mg daily, atorvastatin 40 mg at bedtime, Coreg 12.5 mg twice daily, Plavix 75 mg daily, lisinopril 20 mg twice daily. Echocardiogram performed 2018 revealed EF of 55-60%, mild concentric left ventricular hypertrophy, mild aortic valve sclerosis, mild mitral regurgitation, mild tricuspid regurgitation, no pulmonary hypertension. History of circumflex stent 4.0 x 26 and LAD 3.0 x 38 on 05/02/202003/28 Today, patient underwent cardiac catheterization with Dr. DENVER [place] Patient is to continue current cardiac medications and atorvastatin was increased to 80 mg daily. Echocardiogram reveals normal left ventricle size and systolic function with [id number] concentric left ventricle hypertrophy. Right ventricle is normal. No pulmonary hypertension. There is mitral annular calcification and aortic valve sclerosis without restriction. Mild mitral and tricuspid insufficiency. No pericardial effusion. Physical examination: Gen: This is an 82-year-old male. He is resting on ER stretcher and appears to be comfortable and in no acute distress. VS: reviewed HEENT: Head is atraumatic, normocephalic. Pupils equal, round. Sclerae is anicteric. LUNGS: Clear to auscultation. No wheezes or rhonchi. No intercostal retractions. HEART: Regular rate and rhythm. No murmur. EXTREMITIES: No pedal edema. No calf tenderness. NEUROLOGICAL: Patient is awake, alert and oriented x3. Assessment: Chest pain, rule out new coronary artery disease Circumflex coronary artery disease with previous stenting Chronic kidney disease Hypertension Dyslipidemia Statin intolerance TIA Plan: Continue patient's home cardiac medications Increase atorvastatin to 80 mg daily, prescription has been sent to his pharmacy Plan to monitor patient overnight and discharge home tomorrow. Nurse practitioner note has been reviewed, I agree with documented findings and plan of care. Patient was seen and examined. Objective - Vital Signs Vital signs: Vital Signs Temp 97.7 F 03/28/23 07:00 Pulse 54 L 03/28/23 07:00 Resp 16 03/28/23 07:00 BP 128/70 03/28/23 07:00 Pulse Ox 97 03/28/23 07:00 FiO2 Intake & Output 03/27/23 03/28/23 03/28/23 18:59 06:59 18:59 Intake Total 182.667 463.464 Balance 182.667 463.464 Weight 81.647 kg Intake: IV 300 Intake, IV Titration 64.667 163.464 Amount Heparin Sod,Pork in 0.45% 64.667 163.464 NaCl 25,000 unit In 0.45 % NaCl 1 250ml.bag @ 12 UNITS/KG/HR 9.798 mls/hr IV .Q24H [facility] Rx#: [id number] Oral 118 Other: # Voids 1 1 - Labs CBC & Chem 7: 03/27/23 03:46 03/27/23 03:46 Labs: Abnormal Lab Results - Last 24 Hours (Table) 03/27/23 03/28/23 Range/Units 15:22 06:20 APTT 78.4 H 71.0 H (22.0-30.0) sec
[2023-03-28 11:15] LABS: ALT 19 U/L (10-49); AST 17 U/L (14-35); Albumin 4.5 g/dL (3.8-4.9); Albumin/Globulin Ratio 1.88 Ratio (1.60-3.17); Alkaline Phosphatase 83 U/L (41-126); BUN/Creat Ratio 12.85 Ratio (12.00-20.00); Blood Urea Nitrogen 16.7 mg/dL (9.0-27.0); Calcium 10.3 mg/dL (8.7-10.3); Chloride 103 mmol/L (96-109); Globulin 2.4 g/dL (1.6-3.3); Glucose 136 mg/dL (70-110); Potassium 4.2 mmol/L (3.5-5.5); Sodium 138 mmol/L (135-145); Total Bilirubin 0.7 mg/dL (0.3-1.2); Total Protein 6.9 g/dL (6.2-8.2)
--- NOTE | 2023-03-28 11:15 | P.PN ---
Subjective Progress Note Date: 03/28/23 Raphael Rhodes, is an 82-year-old male who presented to [facility] emergency room with a chief complaint of chest pain, patient describes a pressure sensation in the middle of his chest that started at 2 AM and walk him up he took 2 nitroglycerin at home and this improved his chest pain he denies any diaphoresis shortness of breath nausea or vomiting. He was evaluated in the emergency room vital examination on presentation revealed a temperature of 98.2 pulse 63 respiration 18 blood pressure 133/87 pulse ox 96% on room air Laboratory data reveals a white blood count of 9.4 hemoglobin 16.8 platelet count 178 sodium 137 potassium 4.3 chloride 104 CO2 24 BUN 19 creatinine 1.3 troponin level 0.012 Testing in the emergency room revealed EKG revealed sinus rhythm with left axis deviation, chest x-ray revealed no acute pulmonary process. Patient was admitted to medical floor for further evaluation and treatment Past medical history is significant for history of coronary artery disease with history of angioplasty with 4 stent placement in the past, history of hypertension, history of hyperlipidemia, history of chronic kidney disease, and history of TIA On 03/28/2023 patient currently getting heart catheterization. Vital signs temp 97.7, heart rate 54, respiratory rate 16, blood pressure 128/70 with pulse ox 97% on room air. Patient is status post cardiac catheterization receiving stent to the circumflex. Per cardiology plan to continue to monitor patient overnight and discharged home hopefully tomorrow patient to be maintained on home cardiac medications and increase atorvastatin to 80 mg daily. At this time patient denies chest pain or shortness of breath. Patient denies nausea vomiting or diarrhea. Patient denies any urinary burning or frequency Objective - Vital Signs Vital signs: Vital Signs Temp 97.7 F 03/28/23 07:00 Pulse 54 L 03/28/23 07:00 Resp 16 03/28/23 07:00 BP 128/70 03/28/23 07:00 Pulse Ox 97 03/28/23 07:00 FiO2 Intake & Output 03/27/23 03/28/23 03/28/23 18:59 06:59 18:59 Intake Total 182.667 463.464 Balance 182.667 463.464 Weight 81.647 kg Intake: IV 300 Intake, IV Titration 64.667 163.464 Amount Heparin Sod,Pork in 0.45% 64.667 163.464 NaCl 25,000 unit In 0.45 % NaCl 1 250ml.bag @ 12 UNITS/KG/HR 9.798 mls/hr IV .Q24H [facility] Rx#: [id number] Oral 118 Other: # Voids 1 1 - Exam In general patient is alert and oriented x 3 in no distress HEENT head normocephalic and atraumatic Neck is supple no JVD no goiter no lymphadenopathy no carotid bruit Chest examination is clear to auscultation no crackles no wheezing Cardiac exam reveals regular heart sounds S1 and S2 no gallops no murmurs Abdomen is soft nontender no organomegaly with normal bowel sounds Extremity exam reveals no edema no cyanosis or clubbing Neurological examination reveals no gross focal deficits - Labs CBC & Chem 7: 03/28/23 06:20 03/27/23 03:46 Labs: Abnormal Lab Results - Last 24 Hours (Table) 03/27/23 03/28/23 03/28/23 Range/Units 15:22 06:20 06:20 WBC 10.04 H (4.50-10.00) X 10*3/uL RBC 5.75 H (4.40-5.60) X 10*6/uL Hgb 17.5 H (13.0-17.0) g/dL Hct 52.7 H (39.6-50.0) % APTT 78.4 H 71.0 H (22.0-30.0) sec Assessment and Plan Plan: Episode of chest pain in a 82-year-old male with multiple cardiac risk factors including previous history of coronary artery disease with history of 4 stent placement. Status post stent to the circumflex on 03/28/2023 Underlying history of hypertension Underlying history of hyperlipidemia Underlying history of bmb-rngikxq-mrvnmnddj diabetes mellitus Underlying history of TIA Underlying history of osteoarthritis At this time patient is admitted to telemetry floor Serial EKG and cardiac enzymes ordered cardiology consultation requested Home medications reviewed and reordered Will follow closely
[2023-03-28 12:23] LABS: Glucose,Whole Blood 115 mg/dL (70-110)
--- NOTE | 2023-03-28 13:10 | CC ---
CARDIAC CATHETERIZATION REPORT PROCEDURES PERFORMED: 1. Left heart catheterization and coronary angiography. 2. Percutaneous transluminal coronary angioplasty and stenting of proximal left anterior descending coronary artery with a drug-eluting stent. 3. IFR assessment of proximal LAD lesion. 4. Shockwave lithotripsy of proximal LAD. 5. Intravascular ultrasound of proximal and mid LAD. PERFORMED BY: Dr. Salazar [place] ANESTHESIA: Moderate conscious sedation time was 54 minutes. The patient was administered Versed. Oxygen saturation, hemodynamics, and EKG were monitored closely. CLINICAL INFORMATION: Mr. Raphael Rhodes is an 82-year-old gentleman with history of hypertension, hyperlipidemia, type 2 diabetes, who underwent stenting of mid/proximal LAD and almost entire proximal and mid dominant circumflex and this was performed in [facility] in April 2020. He had a LAD stent which was a 3.0 caliber 38 mm long stent and he had a 4.0 caliber 26 mm long stent placed in the circumflex. He has been doing well. He is in [place] most of the time spends part of the summer here in [place]. He came to the hospital with chest pain suggestive of angina response to nitroglycerin at home. Troponins were negative. EKG revealed nonspecific ST-T changes. He was advised cardiac cath after due discussion regarding risks, benefits, and options. PROCEDURE NOTE: Under local anesthesia and strict aseptic precautions, a 6-Serbian introducer was placed in the right radial artery. Using a JL3.5 and JR4 catheters, I performed coronary angiography and the same right catheter was used to check LV pressures. I noted that just proximal to the LAD stent there was area of haziness with narrowing of about 50% to 60% which was concerning and therefore, I recommended iFR. Using a JL3.5 guide catheter, 6-Serbian caliber and an Omni wire, I performed an iFR, noted the IFR was abnormal at 0.84. I then performed intervention of this vessel with a drug-eluting stent following a shockwave lithotripsy and then intravascular ultrasound. At the end of the procedure, the patient tolerated the procedure well. ACT was initially 332, then to 226. He received a total of 5500 units of heparin. He also received 300 mg of Plavix. He was already on aspirin and Plavix. The sheath was then taken out and TR band applied as per protocol. Saturation of the finger of the right hand was 96%. The patient tolerated procedure well without complications. CARDIAC CATHETERIZATION FINDINGS: Right coronary artery: Small nondominant limited distribution vessel. No significant disease. Left main coronary artery: This is a short patent disease-free vessel that bifurcates into LAD and circumflex. Left anterior descending coronary artery: Good caliber vessel. Mid LAD is stented starting from the diagonal branch all the way into the midportion and the stented area is patent. Diagonal is patent. Septal has about a 70% to 80% narrowing, it comes off the right at the lesion and just before the stented segment, there is a hazy area with 60% narrowing. The LAD has somewhat of a sluggish flow. The other diagonal branches and septal branch have minor irregularities. Left posterior circumflex coronary artery: Dominant vessel, has a long stented segment, widely patent with good flow. Gives off distal posterolateral branch and circumflex marginal. No significant disease. FINAL IMPRESSION: This patient has normal filling pressures of 10 mmHg. No gradient across aortic valve. The LAD has a 60% area of stenosis just before the stented segment in the proximal LAD. Circumflex stent is widely patent. RCA is small, nondominant. No significant disease. LV-gram was not performed. RECOMMENDATIONS: I recommended an iFR assessment of proximal LAD and intervention. I proceeded to perform this in the same setting. INTERVENTION PROCEDURE DETAILS: I used a JL3.5 guide catheter and omni wire. As per protocol after doing the appropriate calibration and giving nitroglycerin and pulling the guide catheter out, I performed iFR assessment of the proximal LAD lesion. This came to be significant at 0.84. I then performed intervention of this vessel. Omni wire was taken out. I advanced a Run-through wire all the way distally into the LAD and I performed a shockwave lithotripsy at the site of calcified 60% lesion just before the stented segment. Two treatments were given with a 3.0 caliber 12 mm long shockwave balloon. I then deployed a 3.5 caliber 8 mm long Xience stent. Excellent angiographic result was achieved. Small septal branch had a sluggish flow. The patient had mild chest discomfort. No EKG changes. Excellent angiographic result was achieved. I then performed intravascular ultrasound and noted that the stent was well fully expanded and well-opposed. Excellent angiographic result was achieved without complication. The sheath was taken out, and Angio-Seal device was used to secure hemostasis. The patient received 300 mg of Plavix. He will be on aspirin and Plavix without interruption for 1 year. He also received heparin and ACT was 332 initially and 226 at the end of the procedure. Results were discussed with the patient and family. I expect he will be discharged tomorrow and will be seen in the office next week. MMRYAN / CHELSY: [id number] /
[2023-03-28] MEDS: INSULIN ASPART (NovoLOG) 100 UNIT/ML VIAL SQ SCH ×3 (13:12→19:51)
[2023-03-28 17:29] LABS: Glucose,Whole Blood 152 mg/dL (70-110)
[2023-03-28] MEDS: SODIUM CHLORIDE 0.9% 1,000 ML IV SCH ×2 (18:53→19:52)
[2023-03-28 19:37] VITALS: TEMP 98.1
[2023-03-28 19:40] LABS: Glucose,Whole Blood 151 mg/dL (70-110)
[2023-03-28] MEDS: GABAPENTIN 300 MG CAP PO SCH (19:51)
[2023-03-29 06:17] LABS: Glucose,Whole Blood 102 mg/dL (70-110)
[2023-03-29] MEDS: INSULIN ASPART (NovoLOG) 100 UNIT/ML VIAL SQ SCH (06:20)
[2023-03-29 08:10] VITALS: BP 152/80; PULSE 60; RESP 16
[2023-03-29 09:11] LABS: Basophils # (A) 0.02 X 10*3/uL (0.00-0.10); Basophils % (A) 0.2 %; Eosinophils # (A) 0.24 X 10*3/uL (0.04-0.35); Eosinophils % (A) 2.5 %; HCT 46.3 % (39.6-50.0); HGB 15.2 g/dL (13.0-17.0); MCH 30.1 pg (27.0-32.0); MCHC 32.8 g/dL (32.0-37.0); MCV 91.7 FL (80.0-97.0); Mean Platelet Volume 10.4 FL (9.5-12.2); Monocytes # (A) 0.68 X 10*3/uL (0.20-1.00); Monocytes % (A) 7.1 %; NRBC Per 100 WBC 0 X 10*3/uL (0.00-0.01); Neutrophils # (A) 6.31 X 10*3/uL (1.80-7.70); Neutrophils % (A) 65.9 %; Platelet Count 162 X 10*3/uL (140-440); RBC 5.05 X 10*6/uL (4.40-5.60); RDW 13.5 % (11.5-14.5); WBC 9.58 X 10*3/uL (4.50-10.00)
[2023-03-29] MEDS: lisinopriL 20 MG TAB PO SCH (09:30)
[2023-03-29] MEDS: carvediloL 12.5 MG TAB PO SCH (09:30)
[2023-03-29] MEDS: CLOPIDOGREL 75 MG TAB PO SCH (09:30)
[2023-03-29] MEDS: ASPIRIN 81 MG PO SCH (09:30)
[2023-03-29] MEDS: amLODIPine 5 MG TAB PO SCH (09:30)
[2023-03-29] MEDS: HEPARIN SOD,PORK IN 0.45% NACL 25,000 UNIT in 0.45% NACL 1 250ML.BAG IV SCH (09:31)
[2023-03-29 09:35] LABS: ALT 12 U/L (10-49); AST 12 U/L (14-35); Albumin 3.6 g/dL (3.8-4.9); Alkaline Phosphatase 67 U/L (41-126); BUN/Creat Ratio 13.25 Ratio (12.00-20.00); Blood Urea Nitrogen 15.9 mg/dL (9.0-27.0); Calcium 9.6 mg/dL (8.7-10.3); Carbon Dioxide 23.2 mmol/L (21.6-31.8); Chloride 106 mmol/L (96-109); Glucose 112 mg/dL (70-110); Potassium 4.6 mmol/L (3.5-5.5); Sodium 137 mmol/L (135-145); Total Bilirubin 0.5 mg/dL (0.3-1.2); Total Protein 5.6 g/dL (6.2-8.2)
--- NOTE | 2023-03-29 11:51 | P.DS ---
Providers Date of admission: 03/27/23 06:41 Expected date of discharge: 03/29/23 Attending physician: Kayleen Kelly Consults: 03/27/23 05:50 Consult Physician Urgent Consulting Provider: [facility] Consult Reason/Comments: acute chest pain, possible acs Do you want consulting provider notified?: Yes Primary care physician: Rama Putnam [facility] Course: Diagnosis on discharge: Episode of chest pain in a 82-year-old male with multiple cardiac risk factors including previous history of coronary artery disease with history of 4 stent placement. Status post stent to the circumflex on 03/28/2023 Underlying history of hypertension Underlying history of hyperlipidemia Underlying history of gmn-zeeeaiz-ehawxlpor diabetes mellitus Underlying history of TIA Underlying history of osteoarthritis Hospital course: Raphael Rhodes, is an 82-year-old male who presented to [facility] emergency room with a chief complaint of chest pain, patient describes a pressure sensation in the middle of his chest that started at 2 AM and walk him up he took 2 nitroglycerin at home and this improved his chest pain he denies any diaphoresis shortness of breath nausea or vomiting. He was evaluated in the emergency room vital examination on presentation revealed a temperature of 98.2 pulse 63 respiration 18 blood pressure 133/87 pulse ox 96% on room air Laboratory data reveals a white blood count of 9.4 hemoglobin 16.8 platelet count 178 sodium 137 potassium 4.3 chloride 104 CO2 24 BUN 19 creatinine 1.3 troponin level 0.012 Testing in the emergency room revealed EKG revealed sinus rhythm with left axis deviation, chest x-ray revealed no acute pulmonary process. Patient was admitted to medical floor for further evaluation and treatment Past medical history is significant for history of coronary artery disease with history of angioplasty with 4 stent placement in the past, history of hypertension, history of hyperlipidemia, history of chronic kidney disease, and history of TIA On 03/28/2023 patient currently getting heart catheterization. Vital signs temp 97.7, heart rate 54, respiratory rate 16, blood pressure 128/70 with pulse ox 97% on room air. Patient is status post cardiac catheterization receiving stent to the circumflex. Per cardiology plan to continue to monitor patient overnight and discharged home hopefully tomorrow patient to be maintained on home cardiac medications and increase atorvastatin to 80 mg daily. At this time patient denies chest pain or shortness of breath. Patient denies nausea vomiting or diarrhea. Patient denies any urinary burning or frequency On 03/29/2023 patient was seen and examined on the telemetry floor he is alert and oriented 3 in no apparent distress, he denies any new episodes of chest pain. There is no fever or chills no headache or dizziness no chest pain no shortness of breath no cough no nausea or vomiting no abdominal pain no diarrhea and no urinary symptoms. Patient was evaluated today by Dr. Dr. Clemons, who was covering for Dr. [place], Dr. Clemons told the patient and the nurse that he is cleared for discharge, I was notified and I evaluated the patient and discharged him to home. Dose of Lipitor was increased from 40 mg to 80 mg daily, prescription was sent, otherwise continue same medications as prior to admission. Follow-up was Dr. Putnam within one week Follow-up with Dr. Christina Colorado in 1-2 weeks. Patient Condition at Discharge: Stable Plan - Discharge Summary New Discharge Prescriptions: New Atorvastatin [Lipitor] 80 mg PO HS #90 tab Atorvastatin [Lipitor] 80 mg PO HS 30 Days #30 tab Continue Aspirin EC [Ecotrin Low Dose] 81 mg PO DAILY Testosterone Cypionate [Depo-Testosterone] 200 mg IM Q14D Clopidogrel [Plavix] 75 mg PO DAILY tab glipiZIDE [Glucotrol] 5 mg PO DAILY amLODIPine [Norvasc] 5 mg PO DAILY lisinopriL [Zestril] 20 mg PO BID carvediloL [Coreg] 12.5 mg PO BID Gabapentin [Neurontin] 300 mg PO HS Discontinued Atorvastatin [Lipitor] 40 mg PO HS Discharge Medication List Aspirin EC [Ecotrin Low Dose] 81 mg PO DAILY 01/02/18 [History] Testosterone Cypionate [Depo-Testosterone] 200 mg IM Q14D 03/13/18 [History] Clopidogrel [Plavix] 75 mg PO DAILY tab 03/14/18 [Rx] Gabapentin [Neurontin] 300 mg PO HS 03/27/23 [History] amLODIPine [Norvasc] 5 mg PO DAILY 03/27/23 [History] carvediloL [Coreg] 12.5 mg PO BID 03/27/23 [History] glipiZIDE [Glucotrol] 5 mg PO DAILY 03/27/23 [History] lisinopriL [Zestril] 20 mg PO BID 03/27/23 [History] Atorvastatin [Lipitor] 80 mg PO HS #90 tab 03/28/23 [Rx] Atorvastatin [Lipitor] 80 mg PO HS 30 Days #30 tab 03/29/23 [Rx] Follow up Appointment(s)/Referral(s): Salazar [place] MD [STAFF PHYSICIAN] - 1 Week (Schedule appointment on Sunday 04/01 before 10 AM) Rama Putnam MD [Primary Care Provider] - 1-2 days
[2023-03-29 11:52] LABS: Glucose,Whole Blood 131 mg/dL (70-110)
--- NOTE | 2023-03-29 12:57 | P.PN ---
Subjective Progress Note Date: 03/29/23 The patient is an 82-year-old male who previously followed with Dr. Clemons in the office. He presented to the hospital with new onset of chest discomfort. He underwent coronary angiogram yesterday with Dr. DENVER [place] where he received a stent to his LAD. Patient has not had any chest pain since his stenting and has been ambulating around the unit. He denies any shortness of breath or dizziness. GENERAL: Well-appearing, well-nourished and in no acute distress. NECK: Supple without JVD or thyromegaly. LUNGS: Breath sounds clear to auscultation bilaterally. Respiration equal and unlabored. No wheezes, rales or rhonchi. HEART: Regular rate and rhythm without murmurs, rubs or gallops. S1 and S2 hea rd. EXTREMITIES: Normal range of motion, no edema. No clubbing or cyanosis. Peripheral pulses intact and strong. Right radial site shows no hematoma. TELEMETRY: Sinus rhythm IMPRESSION: Chest pain Coronary artery disease Status post stenting to the LAD Chronic kidney disease Hypertension Dyslipidemia History TIA PLAN: Continue dual antiplatelet therapy and statin May be discharged from the cardiac standpoint Outpatient follow-up with Dr. Clemons in 1-2 weeks I am dictating on behalf of Dr Shane Clemons's history/physical and assessment/plan. Objective - Vital Signs Vital signs: Vital Signs Temp 98.1 F 03/29/23 07:00 Pulse 60 03/29/23 07:00 Resp 16 03/29/23 07:00 BP 152/80 03/29/23 07:00 Pulse Ox 98 03/29/23 07:00 FiO2 Intake & Output 03/28/23 03/29/23 03/29/23 18:59 06:59 18:59 Intake Total 703.464 Balance 703.464 Intake: IV 300 Intake, IV Titration 163.464 Amount Heparin Sod,Pork in 0.45% 163.464 NaCl 25,000 unit In 0.45 % NaCl 1 250ml.bag @ 12 UNITS/KG/HR 9.798 mls/hr IV .Q24H FRANKY Rx#: [id number] Oral 240 Other: Voiding Method Toilet # Voids 2 2 - Labs CBC & Chem 7: 03/29/23 04:49 03/29/23 04:49 Labs: Abnormal Lab Results - Last 24 Hours (Table) 03/28/23 03/28/23 03/29/23 Range/Units 17:27 19:39 04:49 Glucose (70-110) mg/dL POC Glucose (mg/dL) 152 H 151 H (70-110) mg/dL Hemoglobin A1c 7.0 H (<=6.0) % AST (14-35) U/L Total Protein (6.2-8.2) g/dL Albumin (3.8-4.9) g/dL 03/29/23 03/29/23 Range/Units 04:49 11:51 Glucose 112 H (70-110) mg/dL POC Glucose (mg/dL) 131 H (70-110) mg/dL Hemoglobin A1c (<=6.0) % AST 12 L (14-35) U/L Total Protein 5.6 L (6.2-8.2) g/dL Albumin 3.6 L (3.8-4.9) g/dL
[2023-03-29] MEDS ORDERED: ATORVASTATIN 80 MG TAB PO SCH (21:00)
== END 2023-03-29 12:37 | disposition home or self-care (01) ==
LOC: EC 03:32 → 6NMEDSUR 06:41
PROVIDERS: ADMIT Internal Medicine; ATTEND Internal Medicine
DX: R07.9 Chest pain, unspecified (principal); I25.10 Atherosclerotic heart disease of native coronary artery without angina pectoris; J45.909 Unspecified asthma, uncomplicated; K21.9 Gastro-esophageal reflux disease without esophagitis; E78.5 Hyperlipidemia, unspecified; G89.29 Other chronic pain; M54.9 Dorsalgia, unspecified; I12.9 Hypertensive chronic kidney disease with stage 1 through stage 4 chronic kidney disease, or unspecified chronic kidney disease; N18.9 Chronic kidney disease, unspecified; E11.22 Type 2 diabetes mellitus with diabetic chronic kidney disease; M19.90 Unspecified osteoarthritis, unspecified site; Z86.73 Personal history of transient ischemic attack (TIA), and cerebral infarction without residual deficits; Z95.5 Presence of coronary angioplasty implant and graft; Z79.82 Long term (current) use of aspirin; Z79.899 Other long term (current) drug therapy; Z79.84 Long term (current) use of oral hypoglycemic drugs; Z79.02 Long term (current) use of antithrombotics/antiplatelets
CPT/HCPCS: 96366 ×3; 96376; 96365; 99285; 36415; 93005; 93306; 92978; 93458; 93799; 0715T; 80053 ×3; 83735; 84484; 85025 ×3; 85610 ×2; 85730 ×3; 83036; 71046; G0378 ×3; C9600; C1887; C1769 ×3; C1894; C1753; C1874; C1761; J2250; J2001; J1644 ×3; J1170; Q9967

== ENCOUNTER 2024-01-01 17:20 | Emergency (ER) | payer MEDICARE ==
[2024-01-01] MEDS ORDERED: DIPH,PERTUS(ACELL)TETVAC-LF 0.5 ML VIAL IM ONE (19:10)
[2024-01-01] MEDS ORDERED: LIDOCAINE 1% INJ 10MG/ML (20 ML MDV) ONE (19:10)
== END 2024-01-01 19:48 | disposition home or self-care (01) ==
LOC: EC 17:20
CPT/HCPCS: 12001; 90471; 90715; 99282

== ENCOUNTER 2024-05-12 16:25 | Emergency (ER) | payer MEDICARE ==
[2024-05-12 16:30] VITALS: TEMP 98.3
[2024-05-12] MEDS: OXYMETAZOLINE 0.05% NASL SPRAY 1 SPRAY BOTTLE NASAL STA (16:50)
--- NOTE | 2024-05-12 16:54 | ED ---
ENT HPI - General Chief complaint: ENT Stated complaint: nosebleed Time Seen by Provider: 05/12/24 16:32 Source: patient, RN notes reviewed, old records reviewed Mode of arrival: ambulatory Limitations: no limitations - History of Present Illness Initial comments: This is an 83-year-old male to the ER for evaluation on Plavix, patient comes in for evaluation in regards to nosebleed. states patient does appear to be increasingly stressed, 2 days of a nosebleed not lightheaded dizzy or weak. Patient does have tissues in the nose currently both nares with no bleeding noted MD complaint: epistaxis (Both naris) -: days(s) (2) Location: nose Severity: mild Consistency: intermittent Improves with: pressure Worsens with: none Context-Epistaxis: history of similar Associated Symptoms: other (0) - Related Data Home Medications Medication Instructions Recorded Confirmed Aspirin EC [Ecotrin Low Dose] 81 mg PO DAILY 01/02/18 03/27/23 Testosterone Cypionate 200 mg IM Q14D 03/13/18 03/27/23 [Depo-Testosterone] Gabapentin [Neurontin] 300 mg PO HS 03/27/23 03/27/23 amLODIPine [Norvasc] 5 mg PO DAILY 03/27/23 03/27/23 carvediloL [Coreg] 12.5 mg PO BID 03/27/23 03/27/23 glipiZIDE [Glucotrol] 5 mg PO DAILY 03/27/23 03/27/23 lisinopriL [Zestril] 20 mg PO BID 03/27/23 03/27/23 Previous Rx's Medication Instructions Recorded Clopidogrel [Plavix] 75 mg PO DAILY tab 03/14/18 Atorvastatin [Lipitor] 80 mg PO HS #90 tab 03/28/23 Atorvastatin [Lipitor] 80 mg PO HS 30 Days #30 tab 03/29/23 Allergies Allergy/AdvReac Type Severity Reaction Status Date / Time No Known Allergies Allergy Verified 05/12/24 16:30 Review of Systems ROS Statement: Those systems with pertinent positive or pertinent negative responses have been documented in the HPI. ROS Other: All systems not noted in ROS Statement are negative. Past Medical History Past Medical History: Asthma, CVA/TIA, Diabetes Mellitus, GERD/Reflux, Hyperlipidemia, Hypertension, Osteoarthritis (OA) Additional Past Medical History / Comment(s): Pt recently admitted to [facility] 03/13/18 with difficulty speaking-TIA, NIDDM type II, gastric ulcer years ago, passed kidney stone, has gallstones, chronic back pain with herniated discs, History of Any Multi-Drug Resistant Organisms: None Reported Past Surgical History: Back Surgery Additional Past Surgical History / Comment(s): 04/03/18 Arch study, low back surgery, bilateral cataract removal with lens implants, Past Anesthesia/Blood Transfusion Reactions: No Reported Reaction Past Psychological History: No Psychological Hx Reported Smoking Status: Never smoker Past Alcohol Use History: None Reported Past Drug Use History: None Reported - Past Family History Mother Family Medical History: CVA/TIA, Diabetes Mellitus, Myocardial Infarction ([place]) Additional Family Medical History / Comment(s): Mother had a [place] in her 40s. She had a CVA. She lived to be 72 yrs. old. Father Family Medical History: CVA/TIA Additional Family Medical History / Comment(s): Father had a CVA and was an invalid for 15 yrs. General Exam Limitations: no limitations General appearance: alert, in no apparent distress Head exam: Present: atraumatic, normocephalic, normal inspection Eye exam: Present: normal appearance, PERRL, EOMI. Absent: scleral icterus, conjunctival injection, periorbital swelling ENT exam: Present: normal exam, normal oropharynx, mucous membranes moist. Absent: other (Bilateral bleeding from both nares anterior) Neck exam: Present: normal inspection. Absent: tenderness, meningismus, lymphadenopathy Respiratory exam: Present: normal lung sounds bilaterally. Absent: respiratory distress, wheezes, rales, rhonchi, stridor Cardiovascular Exam: Present: regular rate, normal rhythm, normal heart sounds. Absent: systolic murmur, diastolic murmur, rubs, gallop, clicks GI/Abdominal exam: Present: soft, normal bowel sounds. Absent: distended, tenderness, guarding, rebound, rigid Extremities exam: Present: normal inspection, full ROM, normal capillary refill. Absent: tenderness, pedal edema, joint swelling, calf tenderness Back exam: Present: normal inspection Neurological exam: Present: alert, oriented X3, CN II-XII intact Psychiatric exam: Present: normal affect, normal mood Skin exam: Present: warm, dry, intact, normal color. Absent: rash Course Vital Signs 05/12/24 16:26 Temperature 98.3 F Pulse Rate 54 L Respiratory 16 Rate Blood Pressure 158/83 O2 Sat by Pulse 97 Oximetry - Reevaluation(s) Reevaluation #1: 05/12/24 16:53 Medical records reviewed Reevaluation #2: 05/12/24 16:53 Patient symptoms appear improved Patient opts to forego packing currently Reevaluation #3: 05/12/24 16:53 Patient informed of results questions answered Reevaluation #4: 05/12/24 16:53 Was pt. sent in by a medical professional or institution (LORETTA Martin, AGRICULTURAL AGENT, urgent care, hospital, or jail...) When possible be specific @ -no Did you speak to anyone other than the patient for history (EMS, parent, family, police, friend...)? What history was obtained from this source @ -no Did you review nursing and triage notes (agree or disagree)? Why? @ -agree Are old charts reviewed (outside hosp., previous admission, EMS record, old EKG, old radiological studies, urgent care reports/EKG's, jail records)? Report findings @ -yes Differential Diagnosis (chest pain, altered mental status, abdominal pain women, abdominal pain men, vaginal bleeding, weakness, fever, dyspnea, syncope, headache, dizziness, GI bleed, back pain, seizure, CVA, palpatations, mental health, musculoskeletal)? @ -prior EKG interpreted by me (3pts min.). @ -yes X-rays interpreted by me (1pt min.). @ -yes negative for acute disease CT interpreted by me (1pt min.). @ -no U/S interpreted by me (1pt. min.). @ -no What testing was considered but not performed or refused? (CT, X-rays, U/S, labs)? Why? @ -none What meds were considered but not given or refused? Why? @ -none Did you discuss the management of the patient with other professionals (professionals i.e. LORETTA Martin, AGRICULTURAL AGENT, lab, RT, psych nurse, director social welfare, long term care social worker, teacher, sea air land officer, continuous pillowcase cutter)? Give summary @ -no Was smoking cessation discussed for >3mins.? @ -no Was critical care preformed (if so, how long)? @ -no Were there social determinants of health that impacted care today? How? (Homelessness, low income, unemployed, alcoholism, drug addiction, transportation, low edu. Level, literacy, decrease access to med. care, residential, rehab)? @ -none Was there de-escalation of care discussed even if they declined (Discuss DNR or withdrawal of care, Hospice)? DNR status @ -no What co-morbidities impacted this encounter? (DM, HTN, Smoking, COPD, CAD, Cancer, CVA, ARF, Chemo, Hep., AIDS, mental health diagnosis, sleep apnea, morbid obesity)? @ -none Was patient admitted / discharged? Hospital course, mention meds given and route, prescriptions, significant lab abnormalities, going to OR and other pertinent info. @ - Undiagnosed new problem with uncertain prognosis? @ -no Drug Therapy requiring intensive monitoring for toxicity (Heparin, Nitro, Insulin, Cardizem)? @ -no Were any procedures done? @ -no Diagnosis/symptom? @ - Acute, or Chronic, or Acute on Chronic? @ -Acute Uncomplicated (without systemic symptoms) or Complicated (systemic symptoms)? @ -Complicated Side effects of treatment? @ -no Exacerbation, Progression, or Severe Exacerbation? @ -exacerbation Poses a threat to life or bodily function? How? (Chest pain, [place], [place], pneumonia, PE, COPD, DKA, ARF, appy, cholecystitis, CVA, Diverticulitis, Homicidal, Suicidal, threat to staff... and all critical care pts) @ -yes Medical Decision Making - Medical Decision Making 83 male with bilateral epistaxis, patient does have tissue in both nares on arrival, that is removed, clots were removed, patient is given Afrin spray, 1/2- hour with nose clamp with no bleeding, patient can be discharged home Disposition Clinical Impression: Left-sided epistaxis, Right-sided epistaxis Disposition: HOME SELF-CARE Condition: Good Instructions (If sedation given, give patient instructions): Nosebleed (ED) Is patient prescribed a controlled substance at d/c from ED?: No Referrals: Rama Putnam MD [Primary Care Provider] - 1-2 days Time of Disposition: 17:30
[2024-05-12 17:33] VITALS: BP 142/93; PULSE 62; RESP 18
== END 2024-05-12 18:11 | disposition home or self-care (01) ==
LOC: EC 16:25
DX: R04.0 Epistaxis (principal)
CPT/HCPCS: 99283

== ENCOUNTER 2024-08-19 10:12 | Observation (INO) | payer MEDICARE ==
--- NOTE | 2024-08-19 10:35 | ED ---
Chest Pain HPI - General Source: patient, RN notes reviewed Mode of arrival: ambulatory Limitations: no limitations <Jeferson Borges - Last Filed: 08/19/24 10:33> <Brian Lai - Last Filed: 08/19/24 14:25> - General Chief Complaint: Chest Pain Stated Complaint: chest pain Time Seen by Provider: 08/19/24 10:24 - History of Present Illness Initial Comments: Quick note: This is AN 84-year-old male with history including DM, hypertension, hyperlipidemia presenting for mid chest pain x 3 days. Patient endorses sensation of "elephant on chest" with associated fatigue and minor shortness of breath. Endorses history of 5 cardiac stents, most recent being performed by Dr. [place]. Denies radiating pain, diaphoresis. Patient endorses use of Plavix. (Jeferson Borges) Dictation was produced using [employer] dictation software. please excuse any grammatical, word or spelling errors. Chief Complaint: 84-year-old male presents to the emergency department for chest pressure History of Present Illness: Patient is 84-year-old male he states that he has 6 coronary artery stents. States that for the last couple days he has been having pressure like an elephant sitting on his chest. States that his symptoms are nonradiating. No also associated with diaphoresis or nausea. Patient did not try to take any nitro. His pari mutual ticket checker is Dr. [place]. The ROS documented in this emergency department record has been reviewed and confirmed by me. Those systems with pertinent positive or negative responses have been documented in the HPI. All other systems are other negative and/or noncontributory. (Brian Lai) - Related Data Home Medications Medication Instructions Recorded Confirmed Aspirin EC [Ecotrin Low Dose] 81 mg PO DAILY 01/02/18 03/27/23 Testosterone Cypionate 200 mg IM Q14D 03/13/18 03/27/23 [Depo-Testosterone] Gabapentin [Neurontin] 300 mg PO HS 03/27/23 03/27/23 amLODIPine [Norvasc] 5 mg PO DAILY 03/27/23 03/27/23 carvediloL [Coreg] 12.5 mg PO BID 03/27/23 03/27/23 glipiZIDE [Glucotrol] 5 mg PO DAILY 03/27/23 03/27/23 lisinopriL [Zestril] 20 mg PO BID 03/27/23 03/27/23 Previous Rx's Medication Instructions Recorded Clopidogrel [Plavix] 75 mg PO DAILY tab 03/14/18 Atorvastatin [Lipitor] 80 mg PO HS #90 tab 03/28/23 Atorvastatin [Lipitor] 80 mg PO HS 30 Days #30 tab 03/29/23 Allergies Allergy/AdvReac Type Severity Reaction Status Date / Time No Known Allergies Allergy Verified 08/19/24 10:25 Review of Systems ROS Other: All systems not noted in ROS Statement are negative. <Jeferson Borges - Last Filed: 08/19/24 10:33> ROS Other: All systems not noted in ROS Statement are negative. <Brian Lai - Last Filed: 08/19/24 14:25> ROS Statement: Those systems with pertinent positive or pertinent negative responses have been documented in the HPI. Past Medical History Past Medical History: Asthma, CVA/TIA, Diabetes Mellitus, GERD/Reflux, Hyperlipidemia, Hypertension, Osteoarthritis (OA) Additional Past Medical History / Comment(s): Pt recently admitted to [facility] 03/13/18 with difficulty speaking-TIA, NIDDM type II, gastric ulcer years ago, passed kidney stone, has gallstones, chronic back pain with herniated discs, History of Any Multi-Drug Resistant Organisms: None Reported Past Surgical History: Back Surgery Additional Past Surgical History / Comment(s): 04/03/18 Arch study, low back surgery, bilateral cataract removal with lens implants, Past Anesthesia/Blood Transfusion Reactions: No Reported Reaction Past Psychological History: No Psychological Hx Reported Smoking Status: Never smoker Past Alcohol Use History: None Reported Past Drug Use History: None Reported - Past Family History Mother Family Medical History: CVA/TIA, Diabetes Mellitus, Myocardial Infarction ([place]) Additional Family Medical History / Comment(s): Mother had a [place] in her 40s. She had a CVA. She lived to be 72 yrs. old. Father Family Medical History: CVA/TIA Additional Family Medical History / Comment(s): Father had a CVA and was an invalid for 15 yrs. <Jeferson Borges - Last Filed: 08/19/24 10:33> General Exam Limitations: no limitations <Jeferson Borges - Last Filed: 08/19/24 10:33> <Brian Lai - Last Filed: 08/19/24 14:25> - General Exam Comments Initial Comments: Visual Physical Exam Vital signs reviewed General: Well-appearing, nontoxic, no acute distress. Head: Normocephalic, atraumatic Eyes: PERRLA, EOMI ENT: Airway patent Chest: Nonlabored breathing Skin: No visual rash, normal skin tone Neuro: Alert and oriented 3 Musculoskeletal: No gross abnormalities (Jeferson Borges) PHYSICAL EXAM: General Impression: Alert and oriented x3, not in acute distress HEENT: Normocephalic atraumatic, extra-ocular movements intact, pupils equal and reactive to light bilaterally, mucous membranes moist. Cardiovascular: Heart regular rate and rhythm Chest: Able to complete full sentences, no retractions, no tachypnea Abdomen: abdomen soft, non-tender, non-distended, no organomegaly Musculoskeletal: Pulses present and equal in all extremities, no peripheral edema Motor: no focal deficits noted Neurological: CN II-XII grossly intact, no focal motor or sensory deficits noted Skin: Intact with no visualized rashes Psych: Normal affect and mood (Brian Lai) Course Vital Signs 08/19/24 10:20 Temperature 98.0 F Pulse Rate 65 Respiratory 22 Rate Blood Pressure 155/80 O2 Sat by Pulse 96 Oximetry Chest Pain MDM <Jeferson Borges - Last Filed: 08/19/24 10:33> <Brian Lai - Last Filed: 08/19/24 14:25> - MDM I completed the quick note portion of this chart signed TAMEKA Rubalcava (Jeferson Borges) My EKG interpretation: Ventricular rate 65, sinus rhythm,. 134, cures 97, QTc 389. No FL prolongation, no QTC prolongation. Subtle ST depressions in inferior leads and precordial lateral leads. Precordial depressions appear to be new from comparison to EKG from March 29, 2023. This EKG is nonspecific Was pt. sent in by a medical professional or institution (LORETTA Martin, RN REHAB, urgent care, hospital, or care home...) When possible be specific @ -No Did you speak to anyone other than the patient for history (EMS, parent, family, police, friend...)? What history was obtained from this source @ -No Did you review nursing and triage notes (agree or disagree)? Why? @ -I reviewed and agree with nursing and triage notes Were old charts reviewed (outside hosp., previous admission, EMS record, old EKG, old radiological studies, urgent care reports/EKG's, care home records)? Report findings @ -No old charts were reviewed Differential Diagnosis (chest pain, altered mental status, abdominal pain women, abdominal pain men, vaginal bleeding, musculoskeletal, weakness, fever, dyspnea, syncope, headache, dizziness, GI bleed, back pain, seizure, CVA, palpatations, mental health)? @ -Differential Chest Pain: Stable Angina, Unstable Angina, STEMI, NSTEMI Aortic Dissection, Pneumothorax, Musculoskeletal, Esophageal Spasm GERD, Cholecystitis, Pancreatitis, Zoster, this is not meant to be an all-inclusive list. EKG interpreted by me (3pts min.). @ -See above X-rays interpreted by me (1pt min.). @ -Chest x-ray is nonacute CT interpreted by me (1pt min.). @ -None done U/S interpreted by me (1pt. min.). @ -None done What testing was considered but not performed or refused? (CT, X-rays, U/S, labs)? Why? @ -None What meds were considered but not given or refused? Why? @ -None Was smoking cessation discussed for >3mins.? @ -No Were there social determinants of health that impacted care today? How? (Homelessness, low income, unemployed, alcoholism, drug addiction, transportation, low edu. Level, literacy, decrease access to med. care, penitentiary, rehab)? @ -No Was there de-escalation of care discussed even if they declined (Discuss DNR or withdrawal of care, Hospice)? DNR status @ -No What co-morbidities impacted this encounter? (DM, HTN, Smoking, COPD, CAD, Cancer, CVA, ARF, Chemo, Hep., AIDS, mental health diagnosis, sleep apnea, morbid obesity)? @ -Coronary artery disease Was patient admitted / discharged? Hospital course, mention meds given and rou te, prescriptions, significant lab abnormalities, going to OR and other pertinent info. @ -84-year-old male presents to the emergency department for chest pressure concerning for ACS he has significant risk factors including coronary artery disease and multiple coronary artery stents. Vital signs stable well-appearing at the bedside. EKG is nonspecific showing possible ischemic changes. Patient given aspirin nitro. Laboratory evaluation is unremarkable. Patient will be admitted. Case discussed with hospitalist for admission Did you discuss the management of the patient with other professionals (professionals i.e. , PA, RN REHAB, lab, RT, psych nurse, social service coordinator, metal sprayer protective coating, teacher, field artillery officer, telehealth case manager)? Give summary @ -See above Was critical care preformed (if so, how long)? @ -No Undiagnosed new problem with uncertain prognosis? @ -No Drug Therapy requiring intensive monitoring for toxicity (Heparin, Nitro, Insulin, Cardizem)? @ -No Were any procedures done? @ -No Diagnosis/symptom? Acute, or Chronic, or Acute on Chronic? Uncomplicated (without systemic symptoms) or Complicated (systemic symptoms)? @ -Acute coronary syndrome Side effects of treatment? @ -No Exacerbation, Progression, or Severe Exacerbation? @ -No Poses a threat to life or bodily function? How? (Chest pain, [place], [place], pneumonia, PE, COPD, DKA, ARF, appy, cholecystitis, CVA, Diverticulitis, Homicidal, Suicidal, threat to staff... and all critical care pts) @ -yes (Brian Lai) Disposition <Jeferson Borges - Last Filed: 08/19/24 10:33> Decision Time: 14:25 <Brian Lai - Last Filed: 08/19/24 14:25> Clinical Impression: Chest pain Disposition: ADMITTED IP TO THIS HOSP Condition: Fair Referrals: Rama Putnam MD [Primary Care Provider] - 1-2 days
[2024-08-19 11:23] LABS: Basophils # (A) 0.04 10*3/uL (0.00-0.10); Basophils % (A) 0.5 %; Eosinophils # (A) 0.18 10*3/uL (0.04-0.35); HGB 18.9 g/dL (13.0-17.0); Lymphocytes # (A) 1.59 10*3/uL (0.90-5.00); Lymphocytes % (A) 18.1 %; MCH 31.3 pg (27.0-32.0); MCHC 34.4 g/dL (32.0-37.0); MCV 91.2 fL (80.0-97.0); Mean Platelet Volume 10.1 fL (9.5-12.2); Monocytes # (A) 0.61 10*3/uL (0.20-1.00); Monocytes % (A) 6.9 %; Neutrophils # (A) 6.34 10*3/uL (1.80-7.70); Neutrophils % (A) 72.2 %; Platelet Count 155 10*3/uL (140-440); RBC 6.03 10*6/uL (4.40-5.60); RDW 13.8 % (11.5-14.5); WBC 8.79 10*3/uL (4.50-10.00)
[2024-08-19 11:38] LABS: ALT 20 U/L (4-49); AST 21 U/L (17-59); African American GFR (CKD) 70 (>60 ml/min/1.73 sqM); Albumin 4.3 g/dL (3.5-5.0); Alkaline Phosphatase 70 U/L (38-126); Anion Gap 7 mmol/L; Blood Urea Nitrogen 16 mg/dL (9-20); Calcium 10.3 mg/dL (8.4-10.2); Carbon Dioxide 26 mmol/L (22-30); Chloride 103 mmol/L (98-107); Glucose 190 mg/dL (74-99); Magnesium 1.8 mg/dL (1.6-2.3); Non-African American GFR(CKD) 60 (>60 ml/min/1.73 sqM); Potassium 4.9 mmol/L (3.5-5.1); Sodium 136 mmol/L (137-145); Total Bilirubin 1.3 mg/dL (0.2-1.3)
[2024-08-19 11:59] LABS: INR 1.1 (<1.2); Partial Thromboplastin Time 25.8 sec (22.0-30.0); Prothrombin Time 11.6 sec (10.0-12.5)
--- NOTE | 2024-08-19 13:43 | XR ---
EXAMINATION TYPE: XR chest 2V DATE OF EXAM: 08/19/2024 CLINICAL INDICATION: Male, 84 years old with history of Chest Pain, TECHNIQUE: Frontal and lateral views of the chest are obtained. COMPARISON: Chest x-ray March 27, 2023 FINDINGS: Elevated left hemidiaphragm is present. There is bibasilar linear scarring and/or atelectas is redemonstrated. Upper lungs are clear. The cardiac silhouette size is mildly enlarged. Multilevel spurring in the spine is present. IMPRESSION: Mild cardiomegaly with mild to moderate bibasilar linear scarring and/or atelectasis. [facility], , 08/19/2024 1:41 PM
[2024-08-19] MEDS: ASPIRIN 81 MG PO STA (14:23)
[2024-08-19] MEDS: NITROGLYCERIN SL TABS 0.4 MG TAB SUBLINGUAL STA (14:24)
[2024-08-19] MEDS ORDERED: NITROGLYCERIN SL TABS 0.4 MG TAB SUBLINGUAL PRN (17:24)
[2024-08-19] MEDS: carvediloL 6.25 MG TAB PO SCH (20:08)
[2024-08-19] MEDS: lisinopriL 20 MG TAB PO SCH (20:09)
[2024-08-19] MEDS: amLODIPine 5 MG TAB PO SCH (22:21)
[2024-08-19] MEDS: ATORVASTATIN 80 MG TAB PO SCH (22:21)
[2024-08-19] MEDS: GABAPENTIN 300 MG CAP PO SCH (22:21)
[2024-08-20] MEDS: glipiZIDE 5 MG TAB PO SCH (07:55)
[2024-08-20] MEDS: ASPIRIN 81 MG PO SCH (07:55)
[2024-08-20] MEDS: CLOPIDOGREL 75 MG TAB PO SCH (07:56)
[2024-08-20] MEDS: DAPAGLIFLOZIN PROPANEDIOL 5 MG TABLET PO SCH (07:56)
[2024-08-20] MEDS ORDERED: ASPIRIN 325 MG TAB PO SCH (09:00)
--- NOTE | 2024-08-20 09:29 | P.HPIM ---
History of Present Illness H&P Date: 08/19/24 Raphael Rhodes, is a 84-year-old male patient of Dr. Dumont who presented with complaints of chest pain. Patient reports that the pain had been going on for 3 days and felt like an elephant on his chest with increased fatigue and shortness of breath. Patient has an extensive cardiac history including 5 cardiac stents with most recent stent about 1 and half years ago. Patient reports he is on Plavix. Additional medical history includes asthma, CVA, diabetes mellitus, GERD, hyperlipidemia, hypertension and osteoarthritis. Chest x-ray completed showing mild cardiomegaly with mild to moderate bibasilar linear scarring and/or atelectasis. EKG completed showing sinus bradycardia. Lab work completed showing white blood cell 8.79, hemoglobin 18.9, creatinine 1.11 bun 16 troponins negative x 3. Current vital signs temp 98.4, heart rate 56, respiratory rate 16, blood pressure left 117/97 with a pulse ox of 98% on room air at this time patient will be admitted cardiology services consulted. Patient reports improvement with chest pain. Patient denies shortness of breath. Patient d enies nausea vomiting or diarrhea. Patient denies any urinary burning or frequency. Review of Systems Please refer to HPI otherwise unremarkable Past Medical History Past Medical History: Asthma, CVA/TIA, Diabetes Mellitus, GERD/Reflux, Hyperlipidemia, Hypertension, Osteoarthritis (OA) Additional Past Medical History / Comment(s): Pt recently admitted to [facility] 03/13/18 with difficulty speaking-TIA, NIDDM type II, gastric ulcer years ago, passed kidney stone, has gallstones, chronic back pain with herniated discs, History of Any Multi-Drug Resistant Organisms: None Reported Past Surgical History: Back Surgery Additional Past Surgical History / Comment(s): 04/03/18 Arch study, low back surgery, bilateral cataract removal with lens implants, Past Anesthesia/Blood Transfusion Reactions: No Reported Reaction Past Psychological History: No Psychological Hx Reported Smoking Status: Never smoker Past Alcohol Use History: None Reported Past Drug Use History: None Reported - Past Family History Mother Family Medical History: CVA/TIA, Diabetes Mellitus, Myocardial Infarction (CA) Additional Family Medical History / Comment(s): Mother had a CA in her 40s. She had a CVA. She lived to be 72 yrs. old. Father Family Medical History: CVA/TIA Additional Family Medical History / Comment(s): Father had a CVA and was an invalid for 15 yrs. Medications and Allergies Home Medications Medication Instructions Recorded Confirmed Type Aspirin EC [Ecotrin Low Dose] 81 mg PO DAILY@0800 01/02/18 08/19/24 History Testosterone Cypionate 200 mg IM Q14D 03/13/18 08/19/24 History [Depo-Testosterone] Gabapentin [Neurontin] 300 mg PO HS@2300 03/27/23 08/19/24 History amLODIPine [Norvasc] 5 mg PO HS@2300 03/27/23 08/19/24 History carvediloL [Coreg] 6.25 mg PO BID@0800,1900 03/27/23 08/19/24 History lisinopriL [Zestril] 20 mg PO BID@0800,1900 03/27/23 08/19/24 History Atorvastatin [Lipitor] 80 mg PO HS@2300 08/19/24 08/19/24 History Clopidogrel [Plavix] 75 mg PO DAILY@0800 08/19/24 08/19/24 History Empagliflozin [Jardiance] 10 mg PO DAILY@0800 08/19/24 08/19/24 History glipiZIDE XL [Glucotrol Xl] 5 mg PO DAILY@0800 08/19/24 08/19/24 History Allergies Allergy/AdvReac Type Severity Reaction Status Date / Time No Known Allergies Allergy Verified 08/19/24 17:37 Physical Exam Vitals: Vital Signs Temp Pulse Resp BP Pulse Ox 08/19/24 18:00 65 17 162/88 08/19/24 17:00 65 15 124/74 08/19/24 16:30 62 12 124/74 96 08/19/24 16:00 57 L 16 95 08/19/24 15:30 59 L 14 130/77 97 08/19/24 15:00 64 12 94 L 08/19/24 14:30 66 14 141/94 94 L 08/19/24 14:00 63 17 08/19/24 13:30 149/96 08/19/24 13:17 62 14 115/68 96 08/19/24 10:20 98.0 F 65 22 155/80 96 Intake and Output 08/19/24 08/19/24 08/19/24 06:59 14:59 22:59 Other: Weight 77.111 kg Head normocephalic Neck supple Lungs clear to auscultation bilaterally no wheezing or crackles Heart regular rate and rhythm S1-S2, no rub or gallop Abdomen is soft nontender nondistended positive bowel sounds no hepatosplenomegaly Extremities no edema Neuro alert and orientated to 3 Results CBC & Chem 7: 08/19/24 11:15 08/19/24 11:15 Labs: Abnormal Lab Results - Last 24 Hours (Table) 08/19/24 08/19/24 Range/Units 11:15 11:15 RBC 6.03 H (4.40-5.60) 10*6/uL Hgb 18.9 H (13.0-17.0) g/dL Hct 55.0 H (39.6-50.0) % Sodium 136 L (137-145) mmol/L Glucose 190 H (74-99) mg/dL Calcium 10.3 H (8.4-10.2) mg/dL Assessment and Plan Assessment: 1. Chest pain. Troponins negative x 3 2. History of coronary artery disease with previous placement x 5 3. History of essential hypertension 4. History of hyperlipidemia 5. History of TIA 6. History of [id number] diabetes mellitus 7. History of osteoarthritis Cardiology services consulted Repeat labs ordered Time with Patient: Greater than 30 (Greater than 60% of the total time spent in counseling and coordination of care)
--- NOTE | 2024-08-20 09:30 | P.PN ---
Subjective Progress Note Date: 08/20/24 Raphael Rhodes, is a 84-year-old male patient of Dr. Dumont who presented with complaints of chest pain. Patient reports that the pain had been going on for 3 days and felt like an elephant on his chest with increased fatigue and shortness of breath. Patient has an extensive cardiac history including 5 cardiac stents with most recent stent about 1 and half years ago. Patient reports he is on Plavix. Additional medical history includes asthma, CVA, diabetes mellitus, GERD, hyperlipidemia, hypertension and osteoarthritis. Chest x-ray completed showing mild cardiomegaly with mild to moderate bibasilar linear scarring and/or atelectasis. EKG completed showing sinus bradycardia. Lab work completed showing white blood cell 8.79, hemoglobin 18.9, creatinine 1.11 bun 16 troponins negative x 3. Current vital signs temp 98.4, heart rate 56, respiratory rate 16, blood pressure left 117/97 with a pulse ox of 98% on room air at this time patient will be admitted cardiology services consulted. Patient reports improvement with chest pain. Patient denies shortness of breath. Patient denies nausea vomiting or diarrhea. Patient denies any urinary burning or frequency. On 08/20/2024 patient is alert and oriented x 3. Patient reports improvement of chest pain. Possible plans for cardiac catheterization. Patient denies shortness of breath. Patient denies nausea vomiting or diarrhea. No urinary burning or frequency. Current vital signs temp 98.4, heart rate 60, blood pressure 123/75 with a pulse ox of 96% on room air Objective - Vital Signs Vital signs: Vital Signs Temp 98.4 F 08/19/24 18:53 Pulse 56 L 08/20/24 07:27 Resp 18 08/20/24 07:27 BP 117/97 08/20/24 07:27 Pulse Ox 98 08/20/24 07:27 FiO2 Intake & Output 08/19/24 08/20/24 08/20/24 18:59 06:59 18:59 Weight 77.111 kg - Exam Head normocephalic Neck supple Lungs clear to auscultation bilaterally no wheezing or crackles Heart regular rate and rhythm S1-S2, no rub or gallop Abdomen is soft nontender nondistended positive bowel sounds no hepatosplenomegaly Extremities no edema Neuro alert and orientated to 3 - Labs CBC & Chem 7: 08/19/24 11:15 08/19/24 11:15 Labs: Abnormal Lab Results - Last 24 Hours (Table) 08/19/24 08/19/24 Range/Units 11:15 11:15 RBC 6.03 H (4.40-5.60) 10*6/uL Hgb 18.9 H (13.0-17.0) g/dL Hct 55.0 H (39.6-50.0) % Sodium 136 L (137-145) mmol/L Glucose 190 H (74-99) mg/dL Calcium 10.3 H (8.4-10.2) mg/dL Assessment and Plan Assessment: 1. Chest pain. Troponins negative x 3 2. History of coronary artery disease with previous placement x 5 3. History of essential hypertension 4. History of hyperlipidemia 5. History of TIA 6. History of [id number] diabetes mellitus 7. History of osteoarthritis Cardiology services consulted Repeat labs ordered
[2024-08-20] MEDS ORDERED: NITROGLYCERIN SL TABS 0.4 MG TAB SUBLINGUAL PRN (10:06)
[2024-08-20] MEDS ORDERED: ALPRAZolam 0.5 MG TAB PO PRN (10:06)
[2024-08-20] MEDS ORDERED: ALPRAZolam 0.25 MG TAB PO PRN (10:06)
[2024-08-20] MEDS: SODIUM CHLORIDE 0.9% 1,000 ML in EMPTY BAG 1 BAG IV SCH (10:42)
[2024-08-20] MEDS: ATORVASTATIN 80 MG TAB PO STA (10:42)
[2024-08-20] MEDS: ASPIRIN 325 MG TAB PO STA (10:42)
[2024-08-20 10:51] LABS: ALT 17 U/L (10-49); AST 17 U/L (14-35); Albumin 4.1 g/dL (3.8-4.9); Albumin/Globulin Ratio 1.78 Ratio (1.60-3.17); Alkaline Phosphatase 76 U/L (41-126); BUN/Creat Ratio 11.42 Ratio (12.00-20.00); Blood Urea Nitrogen 13.7 mg/dL (9.0-27.0); Carbon Dioxide 23.7 mmol/L (21.6-31.8); Chloride 104 mmol/L (96-109); Chol/HDL Ratio 2.67 Ratio; Globulin 2.3 g/dL (1.6-3.3); Glucose 98 mg/dL (70-110); LDL Cholesterol,Calculated 40.5 mg/dL (0.0-131.0); Potassium 4.4 mmol/L (3.5-5.5); Sodium 139 mmol/L (135-145); Total Bilirubin 1.1 mg/dL (0.3-1.2); Total Protein 6.4 g/dL (6.2-8.2)
[2024-08-20 11:02] LABS: Basophils # (A) 0.06 X 10*3/uL (0.00-0.10); Basophils % (A) 0.6 %; Eosinophils # (A) 0.25 X 10*3/uL (0.04-0.35); Eosinophils % (A) 2.4 %; HCT 57.2 % (39.6-50.0); HGB 18.9 g/dL (13.0-17.0); Lymphocytes # (A) 2.16 X 10*3/uL (0.90-5.00); MCH 30.3 pg (27.0-32.0); MCV 91.7 FL (80.0-97.0); Mean Platelet Volume 10.3 FL (9.5-12.2); Monocytes # (A) 0.79 X 10*3/uL (0.20-1.00); Monocytes % (A) 7.7 %; NRBC Per 100 WBC 0 X 10*3/uL (0.00-0.01); Neutrophils # (A) 6.98 X 10*3/uL (1.80-7.70); Platelet Count 172 X 10*3/uL (140-440); RBC 6.24 X 10*6/uL (4.40-5.60); WBC 10.27 X 10*3/uL (4.50-10.00)
--- NOTE | 2024-08-20 11:20 | P.CRDCN ---
History of Present Illness History of present illness: HISTORY OF PRESENT ILLNESS: This is a 84-year-old male with a past medical history significant for coronary artery disease with previous stenting, hyperlipidemia, diabetes. Patient follows in the office with Dr. [place]. We have been asked to see the patient in consultation for chest pain. Patient examined at the bedside. Patient states he has been having chest discomfort for the past 2 to 3 days. He describes the pain as someone sitting on his chest. He denies any radiation of the pain. He does report that the pain gets worse after eating sometimes. The pain is not exertionally related. The patient does report having ongoing mild chest discomfort this morning. The patient states this pain is not similar to when he required stenting in the past as he had discomfort into his left arm at that time. DIAGNOSTICS: - EKG reveals sinus mechanism with T wave inversions inferiorly. - Chest xray mild cardiomegaly with mild to moderate bibasilar linear scarring and/or atelectasis. - Laboratory data: WBC 10.27. Hemoglobin 18.9. Platelet count 172. Sodium 139. Potassium 4.4. BUN 13.7. Creatinine 1.2. Troponin negative x 3. - Current home cardiac medications include aspirin 81 mg daily, Lipitor 80 mg at night, Jardiance 10 mg daily, Plavix 75 mg daily, amlodipine 5 mg at night, carvedilol 6.25 mg twice a day, lisinopril 20 mg twice a day. - Most recent echocardiogram obtained in March 2023 revealing ejection fraction 55 to 60% with mild mitral and tricuspid insufficiency. No pericardial effusion. - Cardiac catheterization history: March 2023 with stenting of the proximal LAD REVIEW OF SYSTEMS: At the time of my exam: CONSTITUTIONAL: Denies fever or chills. HEENT: Denies blurred vision, vision changes, or eye pain. Denies hemoptysis CARDIOVASCULAR: Denies chest pain. Denies orthopnea. Denies PND. Denies palpitations RESPIRATORY: Denies shortness of breath. GASTROINTESTINAL: Denies abdominal pain. Denies nausea or vomiting. HEMATOLOGIC: Denies bleeding disorders. GENITOURINARY: Denies any blood in urine. SKIN: Denies pruitis. Denies rash. PHYSICAL EXAM: VITAL SIGNS: Reviewed. GENERAL: Well-developed in no acute distress. HEENT: Head is normocephalic. Pupils are equal, round. Sclerae anicteric. Mucous membranes of the mouth are moist. Neck supple. No JVD or thyromegaly LUNGS: Respirations even and unlabored. Lungs essentially clear to auscultation bilaterally. HEART: Regular rate and rhythm. S1 and S2 heard. Systolic murmur noted. ABDOMEN: Soft. Nondistended. Nontender. EXTREMITIES: Normal range of motion. No clubbing or cyanosis. Peripheral pulses intact. No lower extremity edema NEUROLOGIC: Awake and alert. Oriented x 3. ASSESSMENT: Chest pain Coronary artery disease with previous stenting of the LAD Hyperlipidemia Diabetes PLAN: Obtain 2D echo to assess cardiac structure and function Resume home cardiac medications Patient's primary boring machine set up operator, Dr. [place], is unavailable this afternoon for cardiac catheterization Patient will undergo cardiac catheterization today with Dr. Bauer Further recommendations pending patient course Nurse practitioner note has been reviewed by physician. Signing provider agrees with the documented findings, assessment, and plan of care documented by CAE ENGINEER as a scribe. Past Medical History Past Medical History: Asthma, CVA/TIA, Diabetes Mellitus, GERD/Reflux, Hyperlipidemia, Hypertension, Osteoarthritis (OA) Additional Past Medical History / Comment(s): Pt recently admitted to [facility] 03/13/18 with difficulty speaking-TIA, NIDDM type II, gastric ulcer years ago, passed kidney stone, has gallstones, chronic back pain with herniated discs, History of Any Multi-Drug Resistant Organisms: None Reported Past Surgical History: Back Surgery Additional Past Surgical History / Comment(s): 04/03/18 Arch study, low back surgery, bilateral cataract removal with lens implants, Past Anesthesia/Blood Transfusion Reactions: No Reported Reaction Past Psychological History: No Psychological Hx Reported Smoking Status: Never smoker Past Alcohol Use History: None Reported Past Drug Use History: None Reported - Past Family History Mother Family Medical History: CVA/TIA, Diabetes Mellitus, Myocardial Infarction (PA) Additional Family Medical History / Comment(s): Mother had a PA in her 40s. She had a CVA. She lived to be 72 yrs. old. Father Family Medical History: CVA/TIA Additional Family Medical History / Comment(s): Father had a CVA and was an invalid for 15 yrs. Medications and Allergies Home Medications Medication Instructions Recorded Confirmed Type Aspirin EC [Ecotrin Low Dose] 81 mg PO DAILY@0800 01/02/18 08/19/24 History Testosterone Cypionate 200 mg IM Q14D 03/13/18 08/19/24 History [Depo-Testosterone] Gabapentin [Neurontin] 300 mg PO HS@2300 03/27/23 08/19/24 History amLODIPine [Norvasc] 5 mg PO HS@2300 03/27/23 08/19/24 History carvediloL [Coreg] 6.25 mg PO BID@0800,1900 03/27/23 08/19/24 History lisinopriL [Zestril] 20 mg PO BID@0800,1900 03/27/23 08/19/24 History Atorvastatin [Lipitor] 80 mg PO HS@2300 08/19/24 08/19/24 History Clopidogrel [Plavix] 75 mg PO DAILY@0800 08/19/24 08/19/24 History Empagliflozin [Jardiance] 10 mg PO DAILY@0800 08/19/24 08/19/24 History glipiZIDE XL [Glucotrol Xl] 5 mg PO DAILY@0800 08/19/24 08/19/24 History Allergies Allergy/AdvReac Type Severity Reaction Status Date / Time No Known Allergies Allergy Verified 08/19/24 17:37 Physical Exam Vitals: Vital Signs Temp Pulse Resp BP Pulse Ox 08/20/24 07:27 56 L 18 117/97 98 08/20/24 04:00 55 L 16 100/58 08/20/24 00:00 58 L 16 123/75 96 08/19/24 20:00 60 16 140/81 97 08/19/24 18:53 98.4 F 56 L 16 95 08/19/24 18:00 65 17 162/88 08/19/24 17:00 65 15 124/74 08/19/24 16:30 62 12 124/74 96 08/19/24 16:00 57 L 16 95 08/19/24 15:30 59 L 14 130/77 97 08/19/24 15:00 64 12 94 L 08/19/24 14:30 66 14 141/94 94 L 08/19/24 14:00 63 17 08/19/24 13:30 149/96 08/19/24 13:17 62 14 115/68 96 08/19/24 10:20 98.0 F 65 22 155/80 96 Results 08/20/24 05:21 08/20/24 05:21 Cardiac Enzymes 08/19/24 08/19/24 08/19/24 Range/Units 11:15 11:15 17:33 AST 21 (17-59) U/L Troponin I <0.012 <0.012 (0.000-0.034) ng/mL 08/19/24 Range/Units 20:44 AST (17-59) U/L Troponin I <0.012 (0.000-0.034) ng/mL Coagulation 08/19/24 Range/Units 11:15 PT 11.6 (10.0-12.5) sec APTT 25.8 (22.0-30.0) sec CBC 08/19/24 Range/Units 11:15 WBC 8.79 (4.50-10.00) 10*3/uL RBC 6.03 H (4.40-5.60) 10*6/uL Hgb 18.9 H (13.0-17.0) g/dL Hct 55.0 H (39.6-50.0) % Plt Count 155 (140-440) 10*3/uL Comprehensive Metabolic Panel 08/19/24 Range/Units 11:15 Sodium 136 L (137-145) mmol/L Potassium 4.9 (3.5-5.1) mmol/L Chloride 103 (98-107) mmol/L Carbon Dioxide 26 (22-30) mmol/L BUN 16 (9-20) mg/dL Creatinine 1.11 (0.66-1.25) mg/dL Glucose 190 H (74-99) mg/dL Calcium 10.3 H (8.4-10.2) mg/dL AST 21 (17-59) U/L ALT 20 (4-49) U/L Alkaline Phosphatase 70 (38-126) U/L Total Protein 7.0 (6.3-8.2) g/dL Albumin 4.3 (3.5-5.0) g/dL Current Medications Generic Name Dose Route Start Last Admin Trade Name Freq PRN Reason Stop Dose Admin Amlodipine Besylate 5 mg 08/19/24 23:00 08/19/24 22:21 Amlodipine 5 Mg Tab PO 5 mg HS@2300 FRANKY Administration Aspirin 81 mg 08/20/24 08:00 08/20/24 07:55 Aspirin 81 Mg PO 81 mg DAILY@0800 FRANKY Administration Atorvastatin Calcium 80 mg 08/19/24 23:00 08/19/24 22:21 Atorvastatin 80 Mg Tab PO 80 mg HS@2300 FRANKY Administration Carvedilol 6.25 mg 08/19/24 19:00 08/20/24 07:55 Carvedilol 6.25 Mg Tab PO 6.25 mg BID@0800,1900 FRANKY Administration Clopidogrel Bisulfate 75 mg 08/20/24 08:00 08/20/24 07:56 Clopidogrel 75 Mg Tab PO 75 mg DAILY@0800 FRANKY Administration Dapagliflozin 5 mg 08/20/24 08:00 08/20/24 07:56 Dapagliflozin Propanediol 5 Mg Tablet PO 5 mg DAILY@0800 FRANKY Administration Gabapentin 300 mg 08/19/24 23:00 08/19/24 22:21 Gabapentin 300 Mg Cap PO 300 mg HS@2300 FRANKY Administration Glipizide 2.5 mg 08/20/24 07:30 08/20/24 07:55 Glipizide 5 Mg Tab PO 2.5 mg BID-W/MEALS FRANKY Administration Lisinopril 20 mg 08/19/24 19:00 08/20/24 07:56 Lisinopril 20 Mg Tab PO 20 mg BID@0800,1900 FRANKY Administration Nitroglycerin 0.4 mg 08/19/24 17:24 Nitroglycerin Sl Tabs 0.4 Mg Tab SUBLINGUAL Q5M PRN Chest Pain 08/19/24 11:15 08/19/24 11:15
[2024-08-20] MEDS: IV FLUID CONTINUATION 1,000 ML IV ONE (17:57)
[2024-08-20] MEDS: HEPARIN SODIUM,PORCINE (1 ML) 2,500 UNIT in SODIUM CHLORIDE 0.9% 250 ML IRRIGATION PRN (17:57)
[2024-08-20] MEDS: HEPARIN SODIUM,PORCINE 10,000 UNIT in SODIUM CHLORIDE 0.9% 1,000 ML IRRIGATION PRN (17:57)
[2024-08-20] MEDS: ASPIRIN 81 MG PO ONE (17:59)
[2024-08-20] MEDS: MIDAZOLAM 2 MG/2 ML VIAL IVP ONE (18:05)
[2024-08-20] MEDS: LIDOCAINE 1% INJ 10MG/ML (20 ML MDV) SQ ONE (18:07)
[2024-08-20] MEDS: VERAPAMIL SYRINGE (5 MG/10 ML) INTRAARTER ONE (18:08)
[2024-08-20] MEDS: HEPARIN SODIUM 1,000 UN/ML (10ML VL) IV ONE (18:13)
[2024-08-20] MEDS ORDERED: RX INFO: IV CONTRAST WAS GIVEN 1 EACH MISC MISCELLANE PRN (18:26)
[2024-08-20] MEDS: IOPAMIDOL-370 100ML BTL INJ ONE (18:30)
--- NOTE | 2024-08-20 18:31 | P.PCN ---
Date of Procedure: 08/20/24 Operative Findings: CARDIAC CATHETERIZATION PERFORMING PHYSICIAN: Leo Bauer MD, RPVI PROCEDURE PERFORMED: 1. Selective right and left coronary angiogram 2. Left heart catheterization 3. Ultrasound-guided access of the right radial artery INDICATION: Chest discomfort concerning for unstable angina in this 84-year-old gentleman who is known to have CAD with prior stenting of the LAD and LCx who presented to the hospital with chest discomfort and underwent a workup including EKG showed dynamic changes concerning for ischemia COMPLICATION: None APPROACH: Right radial artery LEVEL OF SEDATION: Moderate with a sedation length of 12 minutes PROCEDURE DESCRIPTION: After obtaining an informed consent, the patient was brought to cardiac produce laborer. Local anesthesia was performed using lidocaine subcutaneously. The right radial artery was cannulated using Seldinger technique, under ultrasound guidance, the guidewire passed easily, following that we advanced a 5-Bangladeshi sheath dilator assembly, the wire and dilator were removed and sheath was flushed. Following that, 2 mg of verapamil along with 5000 unit heparin were given. Selective right and left coronary angiogram using a 5-Bangladeshi JR4 and JL 3.5 catheters. Following that we did left heart catheterization using 5-Bangladeshi pigtail catheter. The procedure was completed there was no complication. SELECTIVE CORONARY ANGIOGRAM: The right coronary artery: Medium caliber vessel nondominant vessel with no evidence of high-grade stenosis Left main: Is angiographically The left circumflex: Large caliber vessel and a dominant vessel with patent stent in the left circumflex. The circumflex distally gives rise into PDA and PLV branches both they do not have any evidence of high-grade stenosis The left anterior descending artery: The stents in the proximal and mid LAD are patent. The LAD distally has intermediate lesion appears to be in the range of 30 to 40% HEMODYNAMICS: The LVEDP was 12 mmHg with no significant gradient across aortic valve CONCLUSION: 1. Intermediate disease involving the ostial LAD appears to be in the range of 40 to 50%. Patent stent in the mid and distal LAD 2. Patent stent in the left circumflex coronary artery POSTPROCEDURE MANAGEMENT: Consider medical treatment at this point Consider doing an IFR of the LAD if the patient remains symptomatic in spite of maximized medical treatment I am going to add oral nitrate to the current medical regimen The patient potentially can be discharged home in the next 24 hours
[2024-08-20 20:37] LABS: Glucose,Whole Blood 130 mg/dL (70-110)
[2024-08-20] MEDS: SODIUM CHLORIDE 0.9% 1,000 ML IV SCH (23:00)
[2024-08-21 06:17] LABS: Glucose,Whole Blood 103 mg/dL (70-110)
[2024-08-21 07:40] VITALS: BP 141/79; PULSE 58; RESP 16; TEMP 98.1
[2024-08-21] MEDS: ISOSORBIDE MONONITRATE ER 30 MG TAB.ER.24H PO SCH (09:15)
[2024-08-21 09:36] LABS: ALT 14 U/L (10-49); AST 16 U/L (14-35); Albumin 3.6 g/dL (3.8-4.9); Alkaline Phosphatase 71 U/L (41-126); BUN/Creat Ratio 16.67 Ratio (12.00-20.00); Calcium 9.5 mg/dL (8.7-10.3); Carbon Dioxide 21.8 mmol/L (21.6-31.8); Chloride 104 mmol/L (96-109); Glucose 96 mg/dL (70-110); Potassium 4.2 mmol/L (3.5-5.5); Sodium 137 mmol/L (135-145); Total Bilirubin 0.9 mg/dL (0.3-1.2); Total Protein 5.6 g/dL (6.2-8.2)
[2024-08-21 09:59] LABS: Basophils # (A) 0.04 X 10*3/uL (0.00-0.10); Basophils % (A) 0.4 %; Eosinophils % (A) 2.2 %; HGB 18.4 g/dL (13.0-17.0); Lymphocytes # (A) 1.68 X 10*3/uL (0.90-5.00); Lymphocytes % (A) 18.1 %; MCH 29.8 pg (27.0-32.0); MCHC 32.3 g/dL (32.0-37.0); MCV 92.2 FL (80.0-97.0); Mean Platelet Volume 10.3 FL (9.5-12.2); Monocytes # (A) 0.69 X 10*3/uL (0.20-1.00); Monocytes % (A) 7.4 %; NRBC Per 100 WBC 0 X 10*3/uL (0.00-0.01); Neutrophils # (A) 6.65 X 10*3/uL (1.80-7.70); Neutrophils % (A) 71.6 %; Platelet Count 164 X 10*3/uL (140-440); RBC 6.18 X 10*6/uL (4.40-5.60); RDW 14.2 % (11.5-14.5); WBC 9.29 X 10*3/uL (4.50-10.00)
[2024-08-21 11:58] LABS: Glucose,Whole Blood 184 mg/dL (70-110)
--- NOTE | 2024-08-21 15:03 | P.PN ---
Subjective Progress Note Date: 08/21/24 This is a 84-year-old male with a past medical history significant for coronary artery disease with previous stenting, hyperlipidemia, diabetes. Patient follows in the office with Dr. [place]. We have been asked to see the patient in consultation for chest pain. Patient examined at the bedside. Patient states he has been having chest discomfort for the past 2 to 3 days. He describes the pain as someone sitting on his chest. He denies any radiation of the pain. He does report that the pain gets worse after eating sometimes. The pain is not exertionally related. The patient does report having ongoing mild chest discomfort this morning. The patient states this pain is not similar to when he required stenting in the past as he had discomfort into his left arm at that time. DIAGNOSTICS: - EKG reveals sinus mechanism with T wave inversions inferiorly. - Chest xray mild cardiomegaly with mild to moderate bibasilar linear scarring and/or atelectasis. - Laboratory data: WBC 10.27. Hemoglobin 18.9. Platelet count 172. Sodium 139. Potassium 4.4. BUN 13.7. Creatinine 1.2. Troponin negative x 3. - Current home cardiac medications include aspirin 81 mg daily, Lipitor 80 mg at night, Jardiance 10 mg daily, Plavix 75 mg daily, amlodipine 5 mg at night, carvedilol 6.25 mg twice a day, lisinopril 20 mg twice a day. - Most recent echocardiogram obtained in March 2023 revealing ejection f raction 55 to 60% with mild mitral and tricuspid insufficiency. No pericardial effusion. - Cardiac catheterization history: March 2023 with stenting of the proximal LAD 08/21/2024 Patient underwent repeat cardiac catheterization yesterday with Dr. Monroy that showed intermittent disease of the ostial LAD with patent stent in the mid and distal LAD and patent stent in the left circumflex. He was initiated on isosorbide with recommendations for possible IFR if needed depending on his symptoms. Patient was seen and examined sitting up in a chair this morning. He is overall feeling better. He has been up ambulating around the room without any chest discomfort. He has no shortness of breath, orthopnea or PND. He has no lower extremity edema. He has had no palpitations, dizziness or li ghtheadedness. PHYSICAL EXAM: VITAL SIGNS: Reviewed. GENERAL: Well-developed in no acute distress. HEENT: Head is normocephalic. Pupils are equal, round. Sclerae anicteric. Mucous membranes of the mouth are moist. Neck supple. No JVD or thyromegaly LUNGS: Respirations even and unlabored. Lungs essentially clear to auscultation bilaterally. HEART: Regular rate and rhythm. S1 and S2 heard. Systolic murmur noted. ABDOMEN: Soft. Nondistended. Nontender. EXTREMITIES: Normal range of motion. No clubbing or cyanosis. Peripheral pulses intact. No lower extremity edema. Right radial puncture site clean dry and intact without ecchymosis or hematoma NEUROLOGIC: Awake and alert. Oriented x 3. ASSESSMENT: Chest pain Coronary artery disease with previous stenting of the LAD Hyperlipidemia Diabetes PLAN: From cardiology's perspective medications were reviewed. Continue amlodipine 5 mg p.o. daily, aspirin 81 mg p.o. daily, atorvastatin 80 mg p.o. nightly, carvedilol 6.25 mg p.o. twice daily, Plavix 75 mg p.o. daily, lisinopril 20 mg p.o. twice daily and isosorbide mononitrate 30 mg p.o. daily. From cardiology's perspective patient may be discharged home. He will follow-up in the office with Dr. [place] in about a week. DURABLE MEDICAL EQUIPMENT REPAIRER note has been reviewed, I agree with a documented findings and plan of care. Patient was seen and examined. Objective - Vital Signs Vital signs: Vital Signs Temp 98.1 F 08/21/24 07:00 Pulse 58 L 08/21/24 07:00 Resp 16 08/21/24 07:00 BP 141/79 08/21/24 07:00 Pulse Ox 97 08/21/24 07:00 FiO2 Intake & Output 08/20/24 08/21/24 08/21/24 18:59 06:59 18:59 Intake Total 50 118 Balance 50 118 Weight 77.111 kg Intake: IV 50 Oral 118 Other: Voiding Method Toilet Toilet # Voids 0 2 - Labs CBC & Chem 7: 08/21/24 04:37 08/21/24 04:37 Labs: Abnormal Lab Results - Last 24 Hours (Table) 08/20/24 08/20/24 08/20/24 Range/Units 05:21 05:21 20:35 WBC 10.27 H (4.50-10.00) X 10*3/uL RBC 6.24 H (4.40-5.60) X 10*6/uL Hgb 18.9 H (13.0-17.0) g/dL Hct 57.2 A* (39.6-50.0) % Est GFR (CKD-EPI) 59 L (>=60) BUN/Creatinine Ratio 11.42 L (12.00-20.00) Ratio POC Glucose (mg/dL) 130 H (70-110) mg/dL Total Protein (6.2-8.2) g/dL Albumin (3.8-4.9) g/dL 08/21/24 08/21/24 Range/Units 04:37 04:37 WBC (4.50-10.00) X 10*3/uL RBC 6.18 H (4.40-5.60) X 10*6/uL Hgb 18.4 H (13.0-17.0) g/dL Hct 57.0 H (39.6-50.0) % Est GFR (CKD-EPI) 59 L (>=60) BUN/Creatinine Ratio (12.00-20.00) Ratio POC Glucose (mg/dL) (70-110) mg/dL Total Protein 5.6 L (6.2-8.2) g/dL Albumin 3.6 L (3.8-4.9) g/dL
== END 2024-08-21 14:58 | disposition home or self-care (01) ==
LOC: EC 10:12 → 6NMEDSUR 17:26
PROVIDERS: ADMIT Internal Medicine; ATTEND Internal Medicine
DX: R07.9 Chest pain, unspecified (principal); I25.10 Atherosclerotic heart disease of native coronary artery without angina pectoris; E78.5 Hyperlipidemia, unspecified; I10 Essential (primary) hypertension; K21.9 Gastro-esophageal reflux disease without esophagitis; Z79.02 Long term (current) use of antithrombotics/antiplatelets; Z79.82 Long term (current) use of aspirin; Z79.84 Long term (current) use of oral hypoglycemic drugs; Z79.899 Other long term (current) drug therapy; Z86.73 Personal history of transient ischemic attack (TIA), and cerebral infarction without residual deficits; Z95.5 Presence of coronary angioplasty implant and graft
CPT/HCPCS: 99285; 36415; 94760; 93005 ×2; 93458; 80061; 80053 ×3; 83735; 84484; 85025 ×3; 85610; 85730; 71046; G0378 ×3; C1894; J2250; J1644 ×3; J2003; Q9967